=== PATIENT | male | born 1945 | race Caucasian/White ===

== ENCOUNTER 2021-10-20 14:12 | Inpatient (IN) | payer MEDICARE, OTHER ==
[~2021-10-20] VITALS: Ht 193 cm; Wt 83.1 kg
[2021-10-20] MEDS ORDERED: TRAZ-120 PO ×2 (15:26)
[2021-10-20] MEDS ORDERED: MEMA10TA PO (15:26)
[2021-10-20] MEDS ORDERED: WARF6TAB47 PO (15:26)
[2021-10-20] MEDS ORDERED: CARB1DRO12 OP (15:26)
[2021-10-20] MEDS ORDERED: LOPE-101 PO (15:26)
[2021-10-20] MEDS ORDERED: ACET325T21 PO (15:26)
[2021-10-20] MEDS ORDERED: ASPI-889 PO (15:26)
[2021-10-20] MEDS ORDERED: SERT50TA PO (15:26)
[2021-10-20] MEDS ORDERED: ACET500T68 PO (15:26)
[2021-10-20] MEDS ORDERED: TRAM50TA PO (15:26)
[2021-10-20] MEDS ORDERED: MAG355OR12 PO (15:26)
[2021-10-20] MEDS ORDERED: GABA-586 PO (15:26)
[2021-10-20] MEDS ORDERED: DONE10TA61 PO (15:26)
[2021-10-20] MEDS ORDERED: MAGN400O7 PO (15:26)
[2021-10-20] MEDS ORDERED: CALC500T31 PO (15:26)
[2021-10-20] MEDS ORDERED: MULT-245 PO (15:26)
[2021-10-20 16:22] VITALS: BP 122/67
[2021-10-20] MEDS ORDERED: METHYL SALICYLATE/MENTHOL TOPICAL OINTMENT 57GM TUBE. TP PRN (16:30)
[2021-10-20] MEDS ORDERED: MAG HYDROX/AL HYDROX/SIMETH 30 ML ORAL.SUSP PO PRN ×2 (16:30→17:15)
[2021-10-20] MEDS ORDERED: LOPERAMIDE 2 MG CAPSULE PO PRN (17:15)
[2021-10-20] MEDS ORDERED: ACETAMINOPHEN 325 MG TABLET PO PRN (17:15)
[2021-10-20] MEDS ORDERED: CALCIUM CARBONATE 500 MG TAB.CHEW PO PRN (17:30)
[2021-10-20] MEDS ORDERED: POLYVINYL ALCOHOL 1.4% OPHTH SOLUTION 15ML BOTTLE. OU PRN (17:30)
--- NOTE | 2021-10-20 18:12 | NUR ---
Admission Note with Justification for Admission to [facility] Patient admitted to [facility] for protective oversight for emergency stabilization of acute psychiatric crisis. Pt admitted from: [place] Mode of arrival: POV Accompanied By: Family Precipitating behaviors that initiated intake and admission: Aggressive, combative, anxiety, tearful, pacing/wandering, weightless Description of failure of out patient attempts at stabilization in previous setting list behavior and medication trials: Behaviors and assessment findings upon admission: Plan: Admit for protective oversight for adjustment and stabilization of medications, behaviors and mood. Intense treatment regimen including groups, medication adjustments, therapy, consistent regimen for ADL's, self care, and sleep hygiene. Daily monitoring by Inpatient staff, Psychiatry, and Medical Physician. Pleasantly confused, wandering in and out of all rooms, oriented to name only, unable to voice , doesnt respond on topic to questions, checks all door handles to closed doors. Word salad at times, paces, very busy.
[2021-10-20] MEDS ORDERED: LIDOCAINE (700MG/PATCH) PATCH. TD SCH (19:00)
[2021-10-20] MEDS ORDERED: ANTI-COAG MONITOR BY PHARMACY. MC PRN (19:15)
[2021-10-20] MEDS: GABAPENTIN 300 MG CAPSULE. PO SCH (20:09)
[2021-10-20] MEDS: traZODone 50 MG TABLET. PO SCH (20:10)
[2021-10-20] MEDS: traMADol 50 MG TABLET PO SCH (20:10)
[2021-10-20] MEDS: SERTRALINE 50 MG TABLET. PO SCH (20:10)
[2021-10-20] MEDS: ACETAMINOPHEN 500 MG TABLET PO SCH (20:10)
[2021-10-20] MEDS: MEMANTINE 10 MG TABLET. PO SCH (20:10)
[2021-10-20] MEDS: PATCH REMOVAL. MC SCH (20:11)
[2021-10-20 20:18] LABS: BASO % 0 % (0-3); EOS # 0.1 x10^3/uL (0.0-0.7); EOS % 3 % (0-3); HEMATOCRIT 33.2 % (39.0-53.0); LYMPH % 23 % (24-48); MEAN CORPUSCULAR HEMOGLOBIN 31 pg (25-35); MEAN CORPUSCULAR HGB CONC 33 g/dL (31-37); MEAN CORPUSCULAR VOLUME 93 fL (79-100); MONO # 0.5 x10^3/uL (0.0-1.1); MONO % 11 % (0-9); NEUT # 2.9 x10^3uL (1.8-7.7); NEUT % 63 % (31-73); PLATELET COUNT 192 x10^3/uL (140-400); RED BLOOD COUNT 3.55 x10^6/uL (4.30-5.70); RED CELL DISTRIBUTION WIDTH 15.3 % (11.5-14.5); WHITE BLOOD COUNT 4.5 x10^3/uL (4.0-11.0)
[2021-10-20 20:26] LABS: ALBUMIN 2.9 g/dL (3.4-5.0); ALBUMIN/GLOBULIN RATIO 0.9 (1.0-1.7); CALCIUM 8.2 mg/dL (8.5-10.1); CREATININE 1.2 mg/dL (0.7-1.3); GFR 58.7; MAGNESIUM 2.2 mg/dL (1.8-2.4); POTASSIUM 3.7 mmol/L (3.5-5.1); TOTAL BILIRUBIN 0.3 mg/dL (0.2-1.0); TOTAL PROTEIN 6.1 g/dL (6.4-8.2)
[2021-10-20] MEDS ORDERED: DONEPEZIL HCL 10 MG TABLET PO SCH (21:00)
[2021-10-20] MEDS ORDERED: WARFARIN 3 MG TABLET. PO ONE (21:30)
--- NOTE | 2021-10-20 21:30 | NUR ---
Pharmacy Warfarin Dosing Note S:Pharmacy consulted to assist with anticoagulation therapy started with target INR: 2 -3 O:FELICITAGINNYCHRISTELLE LARSON is a 75 year old M with Atrial Fibrillation LABS: Last INR: 1.7 Last HGB: 11.0 Last HCT: 33.2 Last PLT: 192 Last dose of 6 mg given on 10/19/21 at Previous Regimen: 6MG DAILY A:INR Below desired Range. Target Range for this patient is: 2 -3 P: Warfarin dose: 6 mg Now Bridge Therapy: None Next INR due 10/21/21 Pharmacy anticoagulation service will continue to follow. ROLY WOODS, 10/20/21 [id number]
--- NOTE | 2021-10-20 21:35 | PDOC ---
Exam Note: Shayne Note: Please also refer to the separate dictated note~for this date of service dictated separately.~Patient seen individually. Discussed the patient with Nursing staff reviewed the chart.~Reviewed interim history and current functioning. Reviewed vital signs,~Labs/ Radiology~and current medications noted below. Continue current treatment with the changes noted in the dictated addendum note Assessment: Vital Signs/I&O: Vital Signs Date Time Temp Pulse Resp B/P (MAP) Pulse Ox O2 Delivery O2 Flow Rate FiO2 10/20/21 20:10 97 10/20/21 16:22 97.8 75 19 122/67 (85) Labs: Laboratory Tests Test 10/20/21 19:50 White Blood Count 4.5 x10^3/uL (4.0-11.0) Red Blood Count 3.55 x10^6/uL (4.30-5.70) L Hemoglobin 11.0 g/dL (13.0-17.5) L Hematocrit 33.2 % (39.0-53.0) L Mean Corpuscular Volume 93 fL (79-100) Mean Corpuscular Hemoglobin 31 pg (25-35) Mean Corpuscular Hemoglobin Concent 33 g/dL (31-37) Red Cell Distribution Width 15.3 % (11.5-14.5) H Platelet Count 192 x10^3/uL (140-400) Neutrophils (%) (Auto) 63 % (31-73) Lymphocytes (%) (Auto) 23 % (24-48) L Monocytes (%) (Auto) 11 % (0-9) H Eosinophils (%) (Auto) 3 % (0-3) Basophils (%) (Auto) 0 % (0-3) Neutrophils # (Auto) 2.9 x10^3uL (1.8-7.7) Lymphocytes # (Auto) 1.0 x10^3/uL (1.0-4.8) Monocytes # (Auto) 0.5 x10^3/uL (0.0-1.1) Eosinophils # (Auto) 0.1 x10^3/uL (0.0-0.7) Basophils # (Auto) 0.0 x10^3/uL (0.0-0.2) Prothrombin Time 17.1 SEC (9.4-11.4) H Prothrombin Time INR 1.7 (0.9-1.1) H D-Dimer (Nata) 0.86 mg/L (0.00-0.50) H Sodium Level 141 mmol/L (136-145) Potassium Level 3.7 mmol/L (3.5-5.1) Chloride Level 107 mmol/L (98-107) Carbon Dioxide Level 27 mmol/L (21-32) Anion Gap 7 (6-14) Blood Urea Nitrogen 15 mg/dL (8-26) Creatinine 1.2 mg/dL (0.7-1.3) Estimated GFR (Cockcroft-Gault) 58.7 BUN/Creatinine Ratio 13 (6-20) Glucose Level 97 mg/dL (70-99) Calcium Level 8.2 mg/dL (8.5-10.1) L Magnesium Level 2.2 mg/dL (1.8-2.4) Total Bilirubin 0.3 mg/dL (0.2-1.0) Aspartate Amino Transferase (AST) 18 U/L (15-37) Alanine Aminotransferase (ALT) 23 U/L (16-63) Alkaline Phosphatase 82 U/L (46-116) Total Protein 6.1 g/dL (6.4-8.2) L Albumin 2.9 g/dL (3.4-5.0) L Albumin/Globulin Ratio 0.9 (1.0-1.7) L Current Medications: Meds: Current Medications Medications (Trade) Dose Ordered Sig/Corky Route PRN Reason Start Time Stop Time Status Last Admin Dose Admin Acetaminophen (Tylenol) 500 mg Q8HRS PO 10/20/21 22:00 10/20/21 20:10 Donepezil HCl (Aricept) 10 mg QHS PO 10/20/21 21:00 10/20/21 20:10 Gabapentin (Neurontin) 300 mg TID PO 10/20/21 21:00 10/20/21 20:09 Memantine (Namenda) 10 mg BID PO 10/20/21 21:00 10/20/21 20:10 Sertraline HCl (Zoloft) 50 mg QHS PO 10/20/21 21:00 10/20/21 20:10 Tramadol HCl (Ultram) 50 mg TID PO 10/20/21 21:00 10/20/21 20:10 Trazodone HCl (Desyrel) 25 mg BID PO 10/20/21 21:00 10/20/21 20:10 Miscellaneous (Lidoderm Patch Removal) 1 ea QHS 10/20/21 21:00 10/20/21 20:11 Warfarin Sodium (Coumadin Per Pharmacy) 1 each PRN DAILY PRN MC SEE COMMENTS 10/20/21 19:30 10/20/21 21:29 I have reviewed the current psychotropics carefully including drug interactions. Risk benefit ratio favors no change other than as noted in my dictated progress note. CHADWICK ARAGON MD Oct 20, 2021 21:35
--- NOTE | 2021-10-21 04:03 | NUR ---
Nursing Note Pt in bed confused, alert to self only. Med compliant and cooperative with assessment. Doesn't know his own name at this point. No behaviors.
[2021-10-21] MEDS: ACETAMINOPHEN 500 MG TABLET PO SCH ×3 (05:33→19:41)
[2021-10-21 06:17] VITALS: BP 102/65
[2021-10-21] MEDS: traMADol 50 MG TABLET PO SCH ×3 (07:46→19:42)
[2021-10-21] MEDS: traZODone 50 MG TABLET. PO SCH ×2 (07:46→19:41)
[2021-10-21] MEDS: GABAPENTIN 300 MG CAPSULE. PO SCH ×3 (07:46→19:41)
[2021-10-21] MEDS: MEMANTINE 10 MG TABLET. PO SCH (07:46)
[2021-10-21] MEDS: MULTIVITAMIN with MINERAL TABLET. PO SCH (07:46)
[2021-10-21] MEDS: ASPIRIN CHEWABLE 81 MG TABLET. PO SCH (07:46)
[2021-10-21] MEDS ORDERED: ASPIRIN ENTERIC COATED 81 MG TABLET.DR. PO SCH (09:00)
[2021-10-21] MEDS ORDERED: WARFARIN SODIUM 6 MG PO SCH (13:00)
--- NOTE | 2021-10-21 13:04 | NUR ---
ASSUMED CARE OF PT AT 0700. PT IS WANDERING IN HALLWAY AT TIME OF SHIFT CHANGE. DURING ASSESSMENT PT IS DISORGANIZED AND UNABLE TO ANSWER ORIENTATION QUESTIONS. PT IS COMPLIANT WITH MEDICATIONS CRUSHED IN CHOCOLATE PUDDING. PT IS STABLE AND WANDERING IN [address] WAY AT THIS TIME. WILL CONTINUE TO MONITOR.
--- NOTE | 2021-10-21 14:10 | NUR ---
NOREEN attempted to contact pt son, Darien, and ended up leaving a message asking for him to contact NOREEN when possible. NOREEN will try back at a later time in order to complete PSA.
[2021-10-21 15:43] LABS: CHOLESTEROL/HDL RATIO 5.2
[2021-10-21 15:44] LABS: THYROID STIM HORMONE (TSH) 3.198 uIU/mL (0.358-3.740)
[2021-10-21] MEDS: traZODone 50 MG TABLET. PO PRN (15:50)
[2021-10-21] MEDS ORDERED: WARFARIN 3 MG TABLET. PO ONE (16:00)
[2021-10-21] MEDS: DIVALPROEX 125 MG CAP.SPRINK PO SCH (17:00)
--- NOTE | 2021-10-21 17:24 | EKG ---
[address] [address] Test Date: 2021-10-21 Test Time: 16:51:08 Pat Name: CHRISTELLE ALDRICH Department: Room: [address] [place] [address] Gender: M Commissioning Editor: : 1945 Requested By: CHADWICK ARAGON Order Number: [id number] Reading MD: Yash Vincent Measurements Intervals [place] Rate: P: SD: QRS: QRSD: T: QT: QTc: Interpretive Statements SINUS RHYTHM NON-SPECIFIC ST/T ABNORMALITIES Electronically Signed On 10-21-2021 19:49:19 MOBILE SECURITY ARCHITECT by Yash Vincent
--- NOTE | 2021-10-21 17:43 | HP ---
DATE OF SERVICE: 10/21/2021 ADMIT DATE: 10/20/2021 PSYCHIATRIC ADMISSION HISTORY AND EVALUATION This late entry, date of service 10/20/2021, covers the elements not covered in my initial note of 10/20/2021. I met with the patient on the evening of 10/20/2021 for this evaluation. Previously discussed with nursing staff and prior to that with Kellie Méndez, mds coordinator. IDENTIFYING DATA: The patient is a 75-year-old male referred to us from [facility] with a diagnosis of dementia with behavioral disturbance. The patient has been increasingly confused, angry, aggressive, oriented just to himself, paranoid, disruptive at the nursing facility. Behaviors have been unmanageable, had failed outpatient psychiatric interventions resulting in this referral. CHIEF COMPLAINT: "No." I followed the patient around, but he is oblivious of his surroundings. HISTORY OF PRESENT ILLNESS: The patient has a history of dementia, Alzheimer's, vascular type. He has been residing at the above [facility] for some time, but recently getting more agitated, paranoid, psychotic, aggressive, disruptive. He has had sleep and appetite changes. No active suicidal or homicidal ideation. No clear history of bipolar disorder. PAST PSYCHIATRIC HISTORY: As above. MEDICAL HISTORY: Positive for status post a graft of the aorta, low back pain, chronic gout, hyperlipidemia, paroxysmal atrial fibrillation, aneurysm of ascending aorta, lumbosacral spondylosis, status post hernia repair, status post vasectomy and ankle surgery. CODE STATUS: DNR. ALLERGIES: STATINS. DIET: Regular finger foods. MEDICATIONS: He takes crushed in chocolate pudding. Ambulates independently. FAMILY HISTORY: Noncontributory. CURRENT PSYCHOTROPICS: Trazodone 25 mg b.i.d. and 25 mg q. 8 hours p.r.n. agitation, Namenda 10 mg b.i.d., Zoloft 50 mg a day, gabapentin 300 mg t.i.d., Aricept 10 mg a day. SOCIAL HISTORY: No history of alcohol, drug abuse, physical, sexual or elder abuse. He is not known to be a perpetrator. REACTION TO HOSPITALIZATION: The patient oblivious of it. REVIEW OF SYSTEMS: No CV, , pulmonary, eye, ENT system symptoms on review. Reliability poor. MENTAL STATUS EXAM: The patient is oriented to himself. Insight, judgment, recent and remote memory, attention, concentration, fund of knowledge poor consistent with his diagnosis. IMPRESSION: Major neurocognitive disorder; Alzheimer, vascular with delusion, depression, behavioral disturbance; anxiety disorder, unspecified; impulse control disorder, unspecified. Rest as above. PLAN: Admit to Geropsychiatry Unit at [facility]. I will see the patient daily individually from a psychiatric standpoint. Medical followup, Dr. Tinajero/Dr. Beltran. Continue the patient on his current psychotropics, observe baseline, then adjust psychotropics as clinically indicated. May consider stopping Namenda and Aricept given the extent of his dementia with little possible benefit at this stage would either of these 2 medications. May consider Depakote as a mood stabilizer and consider adjusting the Zoloft, and also consider BuSpar for his anxiety, agitation. At the time of this dictation, I was called around 3:00 a.m. on 10/21/2021 by nursing staff as an emergency middle of the night, the patient was agitated, aggressive, disruptive. We did start Zyprexa 2.5 mg q. 2 hours p.r.n., psychosis and agitation, max 10 mg in 24 hours and this seemed to be helpful. ESTIMATED LENGTH OF STAY: 10-12 days. DISPOSITION PLANS: Back to mcc when stable. DIOMEDES PATTEN: Yoon TID: [id number]
[2021-10-21 18:07] LABS: THYROXINE 6.2 ug/dL (4.5-12.0)
--- NOTE | 2021-10-21 18:15 | NUR ---
Patient has been calm, cooperative, and mildly confused throughout this shift. He has mild confusion to place and day/date. Patient is impulsive and gets up on his own without assistance after being instructed to request assistance when ambulating. He has been in bed most of the shift, easily aroused for meals. Will continue to monitor and report to oncoming shift.
[2021-10-21] MEDS: SERTRALINE 50 MG TABLET. PO SCH (19:41)
[2021-10-21] MEDS: PATCH REMOVAL. MC SCH (19:42)
--- NOTE | 2021-10-21 20:09 | CONS ---
DATE OF CONSULTATION: 10/21/2021 ATTENDING PHYSICIAN: Dr. Aragon and Dr. Beltran. SUBJECTIVE: We are asked to see the patient for medical consultation. HISTORY OF PRESENT ILLNESS: The patient is a 75-year-old gentleman from [facility] in [place]. He is profoundly demented. He has shake. He is wandering, he is constantly talking gibberish. He will not listen and follow commands. He was admitted for aggressive behavior along with some paranoia. He has been pacing aggressive, combative with caretakers. PAST MEDICAL HISTORY: Significant for profound dementia, Alzheimer disease. He also has a mechanical aortic valve. I do not have further details. I tried to listen for the mechanical aortic valve closure, but because of his talking, I cannot hear that despite his noise. He has had chronic degenerative arthritis, gout, hyperlipidemia. He had COVID-19 in September of this year. MEDICATIONS: His current medicines reviewed. He was on Coumadin 6 mg daily, on trazodone, tramadol, Zoloft, multivitamin, Namenda, magnesium, loperamide, Neurontin, Aricept, cellulose eye drops, aspirin and Tylenol p.r.n. 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 SOCIAL HISTORY: He is a nonsmoker, nondrinker. FAMILY HISTORY: Unobtainable. REVIEW OF SYSTEMS: Unobtainable due to the patient's confusion. PHYSICAL EXAMINATION: GENERAL: When I saw him, this is an agitated, confused elderly gentleman who had to be laid around. He has no insight as to person, place and time. VITAL SIGNS: Initial vital signs showed a blood pressure 102/65, pulse is 80 and regular. He was afebrile, oxygen saturation 98% on room air. HEENT: Head is without trauma. Pupils are reactive. Sclerae nonicteric. Oropharynx appears clear. NECK: Supple, no bruits. LUNGS: Good breath sounds. CARDIOVASCULAR: Regular heart tones. I tried to listen for the closure of the mechanical valve. I cannot appreciate it due to his constant talking. There is no failure. ABDOMEN: Soft. No guarding. EXTREMITIES: Without edema. NEUROLOGIC FINDINGS: Profoundly demented with agitation. PERTINENT LABORATORY STUDIES: Hemoglobin is 11.0 g/dL with a white count of 4500. Electrolytes within normal range. INR was 1.9, today slightly subtherapeutic. ASSESSMENT: 1. This 75-year-old gentleman has profound dementia with agitation. 2. History of mechanical aortic valve, on chronic anticoagulation. 3. Chronic degenerative arthritis and low back pain. 4. Hyperlipidemia. 5. History of gout. RECOMMENDATIONS: 1. I have seen the patient, he is stable from a medical standpoint. 2. His INR is slightly subtherapeutic. I do not recommend increasing the dose of the Coumadin. We will check another INR next week. 3. Other home meds reviewed and should be continued. 4. He is stable from a medical standpoint. Thank you again for asking me to see the patient for medical consultation. We should gladly follow along during his inpatient stay. KATHERIN DR: Demetria TID: [id number] CC: CHADWICK ARAGON MD
--- NOTE | 2021-10-21 21:42 | PDOC ---
Exam Note: Shayne Note: Please also refer to the separate dictated note~for this date of service dictated separately.~Patient seen individually. Discussed the patient with Nursing staff reviewed the chart.~Reviewed interim history and current functioning. Reviewed vital signs,~Labs/ Radiology~and current medications noted below. Continue current treatment with the changes noted in the dictated addendum note Assessment: Vital Signs/I&O: Vital Signs Date Time Temp Pulse Resp B/P (MAP) Pulse Ox O2 Delivery O2 Flow Rate FiO2 10/21/21 19:42 98 10/21/21 14:02 20 10/21/21 13:32 Room Air 10/21/21 06:17 97.8 80 102/65 (77) I & O 10/20/21 10/20/21 10/21/21 15:00 23:00 07:00 Intake Total 660 ml Balance 660 ml Labs: Laboratory Tests Test 10/21/21 06:09 Prothrombin Time 19.8 SEC (9.4-11.4) H Prothrombin Time INR 1.9 (0.9-1.1) H Current Medications: Meds: Laboratory Tests Test 10/21/21 06:09 Prothrombin Time 19.8 SEC Prothromb Time International Ratio 1.9 Current Medications Medications (Trade) Dose Ordered Sig/Corky Route PRN Reason Start Time Stop Time Status Last Admin Dose Admin Multi-Ingredient Ointment (Analgesic Ney) 1 sam PRN QID PRN TP MUSCLE PAIN 10/20/21 16:30 Al Hydroxide/Mg Hydroxide (Mylanta Plus Xs) 15 ml PRN AFTMEALHC PRN PO DYSPEPSIA 10/20/21 16:30 Cancel Acetaminophen (Tylenol) 650 mg PRN Q4HRS PRN PO MILD PAIN / TEMP > 100.3'F 10/20/21 17:15 Acetaminophen (Tylenol) 500 mg Q8HRS PO 10/20/21 22:00 10/21/21 19:41 Aspirin (Aspirin Enteric Coated) 81 mg DAILY PO 10/21/21 09:00 10/20/21 18:50 DC Calcium Carbonate/ Glycine (Tums) 500 mg PRN Q4HRS PRN PO HEARTBURN / GAS 10/20/21 17:30 Donepezil HCl (Aricept) 10 mg QHS PO 10/20/21 21:00 10/21/21 16:23 DC 10/20/21 20:10 Gabapentin (Neurontin) 300 mg TID PO 10/20/21 21:00 10/21/21 19:41 Loperamide HCl (Imodium) 4 mg PRN Q4HRS PRN PO DIARRHEA 10/20/21 17:15 Al Hydroxide/Mg Hydroxide (Mylanta Plus Xs) 30 ml PRN Q4HRS PRN PO indigestion & diarrhea 10/20/21 17:15 Magnesium Hydroxide (Milk Of Magnesia) 2,400 mg PRN Q24HRS PRN PO CONSTIPATION 10/20/21 17:15 Memantine (Namenda) 10 mg BID PO 10/20/21 21:00 10/21/21 16:23 DC 10/21/21 07:46 Sertraline HCl (Zoloft) 50 mg QHS PO 10/20/21 21:00 10/21/21 19:41 Tramadol HCl (Ultram) 50 mg TID PO 10/20/21 21:00 10/21/21 19:42 Trazodone HCl (Desyrel) 25 mg BID PO 10/20/21 21:00 10/21/21 19:41 Trazodone HCl (Desyrel) 25 mg PRN Q8HRS PRN PO anxiety 10/20/21 17:15 10/21/21 15:50 Artificial Tears (Artificial Tears) 2 drop PRN Q4HRS PRN OU DRY EYE 10/20/21 17:30 Multivitamins/ Calcium (Thera-M Plus) 1 tab DAILY PO 10/21/21 09:00 10/21/21 07:46 Non-Formulary Medication (Warfarin Sodium ) 6 mg AFTRNOON PO 10/21/21 13:00 UNV Aspirin (Aspirin Chewable) 81 mg DAILYWBKFT PO 10/21/21 08:00 10/21/21 07:46 Lidocaine (Lidoderm) 1 patch PRN DAILY TD 10/20/21 19:00 Miscellaneous (Lidoderm Patch Removal) 1 ea QHS MC 10/20/21 21:00 10/21/21 19:42 Info (Anti-Coagulation Monitoring By Pharmacy) 1 each PRN DAILY PRN MC SEE COMMENTS 10/20/21 19:15 Warfarin Sodium (Coumadin Per Pharmacy) 1 each PRN DAILY PRN MC SEE COMMENTS 10/20/21 19:30 10/20/21 21:29 Warfarin Sodium (Coumadin) 6 mg 1X WARF ONCE PO 10/20/21 21:30 10/20/21 21:31 DC 10/20/21 21:30 Warfarin Sodium (Coumadin) 6 mg 1X WARF ONCE PO 10/21/21 16:00 10/21/21 16:01 DC 10/21/21 15:49 Divalproex Sodium (Depakote Sprinkles) 125 mg 0900,1700 PO 10/21/21 17:00 Current Medications Medications (Trade) Dose Ordered Sig/Corky Route PRN Reason Start Time Stop Time Status Last Admin Dose Admin Acetaminophen (Tylenol) 500 mg Q8HRS PO 10/20/21 22:00 10/21/21 19:41 Multivitamins/ Calcium (Thera-M Plus) 1 tab DAILY PO 10/21/21 09:00 10/21/21 07:46 Aspirin (Aspirin Chewable) 81 mg DAILYWBKFT PO 10/21/21 08:00 10/21/21 07:46 Warfarin Sodium (Coumadin) 6 mg 1X WARF ONCE PO 10/21/21 16:00 10/21/21 16:01 DC 10/21/21 15:49 I have reviewed the current psychotropics carefully including drug interactions. Risk benefit ratio favors no change other than as noted in my dictated progress note. Diagnosis: Problems: (1) Major neurocognitive disorder (2) Dementia in Alzheimer's disease with delusions (3) Dementia in Alzheimer's disease with early onset with behavioral disturbance (4) Dementia, vascular, with delusions (5) Dementia, vascular, with depression (6) Anxiety disorder, unspecified (7) Impulse control disorder, unspecified CHADWICK ARAGON MD Oct 21, 2021 21:42
--- NOTE | 2021-10-21 22:14 | NUR ---
Nursing Note Pt confused, yelling for mommy, rambling speech pattern in a word salad. Difficult to redirect doesn't follow commands. Gets very agitated with redirection.
[2021-10-22 01:07] LABS: HEMOGLOBIN A1C 5.4 % (4.8-5.6)
[2021-10-22 04:31] LABS: BACTERIA,URINE FEW /HPF (0-FEW); CLARITY,URINE HAZY; COLOR,URINE AMBER; GLUCOSE,URINE NEG (NEG); NITRITE,URINE NEG (NEG); UROBILINOGEN,URINE 0.2 mg/dL (0.2 mg/dL)
[2021-10-22 04:32] LABS: SQUAMOUS EPITHELIAL CELL,UR FEW /LPF
[2021-10-22] MEDS: ACETAMINOPHEN 500 MG TABLET PO SCH ×3 (05:36→20:13)
[2021-10-22 06:19] VITALS: BP 125/73
[2021-10-22] MEDS: traZODone 50 MG TABLET. PO PRN (06:36)
--- NOTE | 2021-10-22 07:25 | NUR ---
Pharmacy Warfarin Dosing Note S:Pharmacy consulted to assist with anticoagulation therapy started with target INR: 2 -3 O:CHRISTELLE ALDRICH is a 75 year old M with Atrial Fibrillation LABS: Last INR: 2.6 Last HGB: 11 Last HCT: 33 Last PLT: 192 Last dose of 6 mg given on 10/21/21 at 1600 Previous Regimen: 6MG DAILY Vitamin K given: N Drug Interaction Changes: Same Interacting Drug Ongoing Drug Interactions: SERTRALINE A:INR Within desired Range. Target Range for this patient is: 2 -3, INR has risen more than 0.5 points, will adjust dose down for now. P: Warfarin dose: 4 mg Today at 1600 Bridge Therapy: None Next INR due Pharmacy anticoagulation service will continue to follow. MARIBELL MANCILLA RPH, 10/22/21 0725 Addendum: 10/22/21 at 0727 by MARIBELL MANCILLA RPH PHA INR rise more than 0.5 points in 24hrs.
[2021-10-22] MEDS: GABAPENTIN 300 MG CAPSULE. PO SCH ×3 (08:42→20:13)
[2021-10-22] MEDS: DIVALPROEX 125 MG CAP.SPRINK PO SCH ×2 (08:42→17:00)
[2021-10-22] MEDS: ASPIRIN CHEWABLE 81 MG TABLET. PO SCH (08:42)
[2021-10-22] MEDS: traZODone 50 MG TABLET. PO SCH ×2 (08:42→20:12)
[2021-10-22] MEDS: MULTIVITAMIN with MINERAL TABLET. PO SCH (08:42)
[2021-10-22] MEDS: traMADol 50 MG TABLET PO SCH ×3 (08:43→20:14)
--- NOTE | 2021-10-22 11:32 | NUR ---
Nsg Note; wandering in cruz indep with no issues. disorganized and talking about his mom and mommy. word salad. med compliant.
[2021-10-22] MEDS ORDERED: WARFARIN 4 MG TABLET. PO ONE (16:00)
[2021-10-22] MEDS: PATCH REMOVAL. MC SCH (19:26)
--- NOTE | 2021-10-22 21:40 | PDOC ---
Exam Note: Shayne Note: Please also refer to the separate dictated note~for this date of service dictated separately.~Patient seen individually. Discussed the patient with Nursing staff reviewed the chart.~Reviewed interim history and current functioning. Reviewed vital signs,~Labs/ Radiology~and current medications noted below. Continue current treatment with the changes noted in the dictated addendum note Assessment: Vital Signs/I&O: Vital Signs Date Time Temp Pulse Resp B/P (MAP) Pulse Ox O2 Delivery O2 Flow Rate FiO2 10/22/21 20:14 91 10/22/21 06:19 97.2 60 18 125/73 (90) 10/21/21 13:32 Room Air I & O 10/21/21 10/21/21 10/22/21 15:00 23:00 07:00 Intake Total 720 ml 0 ml Balance 720 ml 0 ml Labs: Laboratory Tests Test 10/22/21 03:25 10/22/21 06:00 Urine Collection Type Unknown Urine Color Sola Urine Clarity Hazy Urine pH 6.0 Urine Specific [place] >=1.030 Urine Protein Neg (NEG-TRACE) Urine Glucose (UA) Neg mg/dL (NEG) Urine Ketones (Stick) Neg mg/dL (NEG) Urine Blood Neg (NEG) Urine Nitrite Neg (NEG) Urine Bilirubin Neg (NEG) Urine Urobilinogen Dipstick 0.2 mg/dL (0.2 mg/dL) Urine Leukocyte Esterase Neg (NEG) Urine RBC 3-5 /HPF (0-2) Urine WBC 1-4 /HPF (0-4) Urine Squamous Epithelial Cells Few /LPF Urine Bacteria Few /HPF (0-FEW) Urine Mucus Mod /LPF Prothrombin Time 27.0 SEC (9.4-11.4) H Prothrombin Time INR 2.6 (0.9-1.1) H Current Medications: Meds: Laboratory Tests Test 10/22/21 03:25 10/22/21 06:00 Urine Collection Type Unknown Urine Color Sola Urine Clarity Hazy Urine pH 6.0 Urine Specific [place] >=1.030 Urine Protein Neg Urine Glucose (UA) Neg mg/dL Urine Ketones (Stick) Neg mg/dL Urine Blood Neg Urine Nitrite Neg Urine Bilirubin Neg Urine Urobilinogen Dipstick 0.2 mg/dL Urine Leukocyte Esterase Neg Urine RBC 3-5 /HPF Urine WBC 1-4 /HPF Urine Squamous Epithelial Cells Few /LPF Urine Bacteria Few /HPF Urine Mucus Mod /LPF Prothrombin Time 27.0 SEC Prothromb Time International Ratio 2.6 Current Medications Medications (Trade) Dose Ordered Sig/Corky Route PRN Reason Start Time Stop Time Status Last Admin Dose Admin Multi-Ingredient Ointment (Analgesic [place]) 1 sam PRN QID PRN TP MUSCLE PAIN 10/20/21 16:30 Al Hydroxide/Mg Hydroxide (Mylanta Plus Xs) 15 ml PRN AFTMEALHC PRN PO DYSPEPSIA 10/20/21 16:30 Cancel Acetaminophen (Tylenol) 650 mg PRN Q4HRS PRN PO MILD PAIN / TEMP > 100.3'F 10/20/21 17:15 Acetaminophen (Tylenol) 500 mg Q8HRS PO 10/20/21 22:00 10/22/21 20:13 Aspirin (Aspirin Enteric Coated) 81 mg DAILY PO 10/21/21 09:00 10/20/21 18:50 DC Calcium Carbonate/ Glycine (Tums) 500 mg PRN Q4HRS PRN PO HEARTBURN / GAS 10/20/21 17:30 Donepezil HCl (Aricept) 10 mg QHS PO 10/20/21 21:00 10/21/21 16:23 DC 10/20/21 20:10 Gabapentin (Neurontin) 300 mg TID PO 10/20/21 21:00 10/22/21 20:13 Loperamide HCl (Imodium) 4 mg PRN Q4HRS PRN PO DIARRHEA 10/20/21 17:15 Al Hydroxide/Mg Hydroxide (Mylanta Plus Xs) 30 ml PRN Q4HRS PRN PO indigestion & diarrhea 10/20/21 17:15 Magnesium Hydroxide (Milk Of Magnesia) 2,400 mg PRN Q24HRS PRN PO CONSTIPATION 10/20/21 17:15 Memantine (Namenda) 10 mg BID PO 10/20/21 21:00 10/21/21 16:23 DC 10/21/21 07:46 Sertraline HCl (Zoloft) 50 mg QHS PO 10/20/21 21:00 10/22/21 10:23 DC 10/21/21 19:41 Tramadol HCl (Ultram) 50 mg TID PO 10/20/21 21:00 10/22/21 20:14 Trazodone HCl (Desyrel) 25 mg BID PO 10/20/21 21:00 10/22/21 20:12 Trazodone HCl (Desyrel) 25 mg PRN Q8HRS PRN PO anxiety 10/20/21 17:15 10/22/21 06:36 Artificial Tears (Artificial Tears) 2 drop PRN Q4HRS PRN OU DRY EYE 10/20/21 17:30 Multivitamins/ Calcium (Thera-M Plus) 1 tab DAILY PO 10/21/21 09:00 10/22/21 08:42 Non-Formulary Medication (Warfarin Sodium ) 6 mg AFTRNOON PO 10/21/21 13:00 UNV Aspirin (Aspirin Chewable) 81 mg DAILYWBKFT PO 10/21/21 08:00 10/22/21 08:42 Lidocaine (Lidoderm) 1 patch PRN DAILY TD 10/20/21 19:00 10/22/21 14:58 DC Miscellaneous ([facility] 10/[facility] 21:00 10/21/21 19:42 Info (Anti-Coagulation Monitoring By Pharmacy) 1 each PRN DAILY PRN MC SEE COMMENTS 10/20/21 19:15 Warfarin Sodium (Coumadin Per Pharmacy) 1 each PRN DAILY PRN MC SEE COMMENTS 10/20/21 19:30 10/22/21 07:21 Warfarin Sodium (Coumadin) 6 mg 1X WARF ONCE PO 10/20/21 21:30 10/20/21 21:31 DC 10/20/21 21:30 Warfarin Sodium (Coumadin) 6 mg 1X WARF ONCE PO 10/21/21 16:00 10/21/21 16:01 DC 10/21/21 15:49 Divalproex Sodium (Depakote Sprinkles) 125 mg 0900,1700 PO 10/21/21 17:00 10/22/21 17:00 Warfarin Sodium (Coumadin) 4 mg 1X WARF ONCE PO 10/22/21 16:00 10/22/21 16:01 DC 10/22/21 17:05 Duloxetine HCl (Cymbalta) 20 mg DAILY PO 10/23/21 09:00 10/25/21 10:00 Duloxetine HCl (Cymbalta) 40 mg DAILY PO 10/26/21 09:00 Lidocaine (Lidoderm) 1 patch DAILY TD 10/23/21 09:00 Current Medications Medications (Trade) Dose Ordered Sig/Corky Route PRN Reason Start Time Stop Time Status Last Admin Dose Admin Warfarin Sodium (Coumadin) 4 mg 1X WARF ONCE PO 10/22/21 16:00 10/22/21 16:01 DC 10/22/21 17:05 I have reviewed the current psychotropics carefully including drug interactions. Risk benefit ratio favors no change other than as noted in my dictated progress note. 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
--- NOTE | 2021-10-22 22:40 | NUR ---
Nursing Note Pt highly combative and confused, gets very angry with redirection. Swings at staff stating things in word salad that make no sense. Yells out constantly for his mommy. Meds in pudding is compliant. Zydis given with HS meds.
[2021-10-23] MEDS: ACETAMINOPHEN 500 MG TABLET PO SCH ×4 (06:00→22:00)
[2021-10-23 06:40] VITALS: BP 121/74
[2021-10-23] MEDS: traMADol 50 MG TABLET PO SCH ×4 (08:27→21:00)
[2021-10-23] MEDS: traZODone 50 MG TABLET. PO SCH ×3 (08:27→21:00)
[2021-10-23] MEDS: ASPIRIN CHEWABLE 81 MG TABLET. PO SCH (08:27)
[2021-10-23] MEDS: DIVALPROEX 125 MG CAP.SPRINK PO SCH ×2 (08:27→17:00)
[2021-10-23] MEDS: MULTIVITAMIN with MINERAL TABLET. PO SCH (08:27)
[2021-10-23] MEDS: LIDOCAINE (700MG/PATCH) PATCH. TD SCH (08:27)
[2021-10-23] MEDS: DULoxetine HCL 20 MG CAPSULE.DR PO SCH (08:27)
[2021-10-23] MEDS: GABAPENTIN 300 MG CAPSULE. PO SCH ×4 (08:28→21:00)
--- NOTE | 2021-10-23 09:49 | NUR ---
WEEKLY ACTIVITY THERAPY NOTE Date of Admission:10/20/21 Date of AT Assessment: TBD Precipitating behaviors that initiated intake and admission: Aggressive, combative, anxiety, tearful, pacing/wandering, weightless Goal aimed: TBD Initial Goal: TBD Weekly progress towards goal: NA Group participation level: NA Weekly highlights: arrived on [facility] Behaviors observed: Plan: meet/assess pt Beneficial adaptations: TBD
--- NOTE | 2021-10-23 10:42 | NUR ---
ACTIVITY THERAPY ASSESSMENT completed based on notes, observation, and interview. Pt was wandering in the hallway during assessment. Pt did not respond to his name and continued to walk when RELATIONSHIP BANKER spoke with him. RELATIONSHIP BANKER walked with pt for a few minutes but was unable to make sense of anything the pt was saying. Pt spoke in word salad and was unable to answer orientation questions. Per notes pt becomes agitated and resistive with redirection. Pt continues to wander and is unaware of his surroundings. Initial goal aimed to increase stress management and relaxation skills. Pt will participate in at least three Activity Therapy sessions before discharge.
--- NOTE | 2021-10-23 15:12 | NUR ---
Pharmacy Warfarin Dosing Note S:Pharmacy consulted to assist with anticoagulation therapy started 10/20/21 with target INR: 2 -3 O:FELICITAGINNYCHRISTELLE LARSON is a 75 year old M with Atrial Fibrillation LABS: Last INR: 3.1 Last HGB: 11 Last HCT: 33.2 Last PLT: 192 Last dose of 4 mg given on 10/22/21 at 1600 Previous Regimen: 6MG DAILY HOME DOSE Vitamin K given: N Drug Interaction Changes: Same Interacting Drug Ongoing Drug Interactions: SERTRALINE A:INR Above desired Range. Target Range for this patient is: 2 -3 P: Warfarin dose: Hold Today at 1600 Bridge Therapy: None Next INR due 10/24/21 @ 0600 Pharmacy anticoagulation service will continue to follow. MARIBELL MANCILLA [facility], 10/23/21 [id number]
[2021-10-23] MEDS: traZODone 50 MG TABLET. PO PRN (15:24)
[2021-10-23 15:38] VITALS: BP 103/66
[2021-10-23] MEDS: PATCH REMOVAL. MC SCH (20:13)
[2021-10-23] MEDS: MAGNESIUM HYDROXIDE 2,400 MG/30 ML ORAL.SUSP. PO PRN (20:16)
--- NOTE | 2021-10-23 21:33 | PDOC ---
Exam Note: Shayne Note: This note is a late entry for 10/21/2021 covers elements not covered in my initial note. Subjective: The patient was seen individually on 10/21/2021, discussed and reviewed the chart with Tamanna NEFF. He slept 7-3/4 hours previous night. The patient remains confused, oriented just to himself, constantly walking up and down the hallway, getting into other patients room, calling for his mother. I was called at 3 a.m., by nursing staff as the patient is quite agitated, psychotic, paranoid. We had added Zyprexa 2.5 mg q.2h. p.r.n. psychosis, agitation, max 10 mg in 24 hours. He seemed to respond to this. He has been wandering the hallway. Review of Systems: No CV, , pulmonary, eye, ENT system symptoms on review. Reliability poor. He is frequently calling for his mother. Mental Status Exam: The patient is oriented to himself. Insight and judgment, recent and remote memory, attention and concentration, fund of knowledge is poor consistent with his diagnosis. Laboratory Data: Reviewed. Impression: Major neurocognitive disorder, Alzheimer, vascular with delusion, depression behavioral disturbance. Anxiety disorder unspecified. Impulse control disorder unspecified. Plan: Increase Zoloft to 75 mg a day. Add Depakote Sprinkle 125 mg 9 a.m. and 5 p.m. Check CBC, CMP, valproic acid level in 3 days. Continue rest psychotropics unchanged from initial note. Assessment: Vital Signs/I&O: Vital Signs Date Time Temp Pulse Resp B/P (MAP) Pulse Ox O2 Delivery O2 Flow Rate FiO2 10/23/21 20:15 99 10/23/21 15:38 98.8 79 16 103/66 (78) 10/21/21 13:32 Room Air I & O 10/22/21 10/22/21 10/23/21 15:00 23:00 07:00 Intake Total 480 ml 120 ml Balance 480 ml 120 ml Labs: Laboratory Tests Test 10/23/21 05:53 Prothrombin Time 31.4 SEC (9.4-11.4) H Prothrombin Time INR 3.1 (0.9-1.1) H Current Medications: Meds: Current Medications Medications (Trade) Dose Ordered Sig/Corky Route PRN Reason Start Time Stop Time Status Last Admin Dose Admin Duloxetine HCl (Cymbalta) 20 mg DAILY PO 10/23/21 09:00 10/25/21 10:00 10/23/21 08:27 Lidocaine (Lidoderm) 1 patch DAILY TD 10/23/21 09:00 10/23/21 08:27 Warfarin Sodium (Coumadin - No Dose Today) 1 each 1X WARF ONCE MC 10/23/21 16:00 10/23/21 16:01 DC 10/23/21 16:00 I have reviewed the current psychotropics carefully including drug interactions. Risk benefit ratio favors no change other than as noted in my dictated progress note. 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
--- NOTE | 2021-10-23 21:41 | PDOC ---
Exam Note: Shayne Note: This note is a late entry for 10/22/2021 covers elements not covered in my initial note. Subjective: The patient was reviewed on telehealth rounds at treatment team meeting in the morning on 10/22/2021 with Dyana Cruz (social research assistant) and Lynn NEFF, discussed and reviewed the chart. Discussed and reviewed his diagnoses, progress, drug interactions and risk-benefit ratio at length. Sleeping average 7 hours. Appetite 50%. The patient remains confused, talking to himself but no clear hallucinations. He is restless, anxious, constantly moving up and down the hallway, did not know how to eat his food, fixated on calling for his mother. Received Zyprexa p.r.n. 3 a.m. Review of Systems: He has low back pain. No CV, , pulmonary, eye, ENT system symptoms on review. Reliability poor. He was somewhat sedated in the evening when I met with him. Mental Status Exam: The patient is oriented to himself. Insight and judgment, recent and remote memory, attention and concentration, fund of knowledge is poor consistent with his diagnosis. Laboratory Data: Reviewed. Impression: Major neurocognitive disorder, Alzheimer, vascular with delusion, depression behavioral disturbance. Anxiety disorder unspecified. Impulse control disorder unspecified. Plan: Given the patients chronic pain and need for anti-depressants, we will change the Zoloft to Cymbalta 20 mg a day for 3 days, then 40 mg a day. Maintain rest of the psychotropics unchanged. Assessment: Vital Signs/I&O: Vital Signs Date Time Temp Pulse Resp B/P (MAP) Pulse Ox O2 Delivery O2 Flow Rate FiO2 10/23/21 20:15 99 10/23/21 15:38 98.8 79 16 103/66 (78) 10/21/21 13:32 Room Air I & O 10/22/21 10/22/21 10/23/21 15:00 23:00 07:00 Intake Total 480 ml 120 ml Balance 480 ml 120 ml Labs: Laboratory Tests Test 10/23/21 05:53 Prothrombin Time 31.4 SEC (9.4-11.4) H Prothrombin Time INR 3.1 (0.9-1.1) H Current Medications: Meds: Current Medications Medications (Trade) Dose Ordered Sig/Corky Route PRN Reason Start Time Stop Time Status Last Admin Dose Admin Duloxetine HCl (Cymbalta) 20 mg DAILY PO 10/23/21 09:00 10/25/21 10:00 10/23/21 08:27 Lidocaine (Lidoderm) 1 patch DAILY TD 10/23/21 09:00 10/23/21 08:27 Warfarin Sodium (Coumadin - No Dose Today) 1 each 1X WARF ONCE MC 10/23/21 16:00 10/23/21 16:01 DC 10/23/21 16:00 I have reviewed the current psychotropics carefully including drug interactions. Risk benefit ratio favors no change other than as noted in my dictated progress note. 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
--- NOTE | 2021-10-23 21:51 | PDOC ---
Exam Note: Shayne Note: Please also refer to the separate dictated note~for this date of service dictated separately.~Patient seen individually. Discussed the patient with Nursing staff reviewed the chart.~Reviewed interim history and current functioning. Reviewed vital signs,~Labs/ Radiology~and current medications noted below. Continue current treatment with the changes noted in the dictated addendum note Assessment: Vital Signs/I&O: Vital Signs Date Time Temp Pulse Resp B/P (MAP) Pulse Ox O2 Delivery O2 Flow Rate FiO2 10/23/21 20:15 99 10/23/21 15:38 98.8 79 16 103/66 (78) 10/21/21 13:32 Room Air I & O 10/22/21 10/22/21 10/23/21 15:00 23:00 07:00 Intake Total 480 ml 120 ml Balance 480 ml 120 ml Labs: Laboratory Tests Test 10/23/21 05:53 Prothrombin Time 31.4 SEC (9.4-11.4) H Prothrombin Time INR 3.1 (0.9-1.1) H Current Medications: Meds: Laboratory Tests Test 10/23/21 05:53 Prothrombin Time 31.4 SEC Prothromb Time International Ratio 3.1 Current Medications Medications (Trade) Dose Ordered Sig/Corky Route PRN Reason Start Time Stop Time Status Last Admin Dose Admin Multi-Ingredient Ointment (Analgesic [place]) 1 sam PRN QID PRN TP MUSCLE PAIN 10/20/21 16:30 Al Hydroxide/Mg Hydroxide (Mylanta Plus Xs) 15 ml PRN AFTMEALHC PRN PO DYSPEPSIA 10/20/21 16:30 Cancel Acetaminophen (Tylenol) 650 mg PRN Q4HRS PRN PO MILD PAIN / TEMP > 100.3'F 10/20/21 17:15 Acetaminophen (Tylenol) 500 mg Q8HRS PO 10/20/21 22:00 10/23/21 20:15 Aspirin (Aspirin Enteric Coated) 81 mg DAILY PO 10/21/21 09:00 10/20/21 18:50 DC Calcium Carbonate/ Glycine (Tums) 500 mg PRN Q4HRS PRN PO HEARTBURN / GAS 10/20/21 17:30 Donepezil HCl (Aricept) 10 mg QHS PO 10/20/21 21:00 10/21/21 16:23 DC 10/20/21 20:10 Gabapentin (Neurontin) 300 mg TID PO 10/20/21 21:00 10/23/21 20:15 Loperamide HCl (Imodium) 4 mg PRN Q4HRS PRN PO DIARRHEA 10/20/21 17:15 Al Hydroxide/Mg Hydroxide (Mylanta Plus Xs) 30 ml PRN Q4HRS PRN PO indigestion & diarrhea 10/20/21 17:15 Magnesium Hydroxide (Milk Of Magnesia) 2,400 mg PRN Q24HRS PRN PO CONSTIPATION 10/20/21 17:15 10/23/21 20:16 Memantine (Namenda) 10 mg BID PO 10/20/21 21:00 10/21/21 16:23 DC 10/21/21 07:46 Sertraline HCl (Zoloft) 50 mg QHS PO 10/20/21 21:00 10/22/21 10:23 DC 10/21/21 19:41 Tramadol HCl (Ultram) 50 mg TID PO 10/20/21 21:00 10/23/21 20:15 Trazodone HCl (Desyrel) 25 mg BID PO 10/20/21 21:00 10/23/21 20:14 Trazodone HCl (Desyrel) 25 mg PRN Q8HRS PRN PO anxiety 10/20/21 17:15 10/23/21 15:24 Artificial Tears (Artificial Tears) 2 drop PRN Q4HRS PRN OU DRY EYE 10/20/21 17:30 Multivitamins/ Calcium (Thera-M Plus) 1 tab DAILY PO 10/21/21 09:00 10/23/21 08:27 Non-Formulary Medication (Warfarin Sodium ) 6 mg AFTRNOON PO 10/21/21 13:00 UNV Aspirin (Aspirin Chewable) 81 mg DAILYWBKFT PO 10/21/21 08:00 10/23/21 08:27 Lidocaine (Lidoderm) 1 patch PRN DAILY TD 10/20/21 19:00 10/22/21 14:58 DC Miscellaneous (Lidoderm Patch Removal) 1 ea QHS MC 10/20/21 21:00 10/21/21 19:42 Info (Anti-Coagulation Monitoring By Pharmacy) 1 each PRN DAILY PRN MC SEE COMMENTS 10/20/21 19:15 Warfarin Sodium (Coumadin Per Pharmacy) 1 each PRN DAILY PRN MC SEE COMMENTS 10/20/21 19:30 10/23/21 15:11 Warfarin Sodium (Coumadin) 6 mg 1X WARF ONCE PO 10/20/21 21:30 10/20/21 21:31 DC 10/20/21 21:30 Warfarin Sodium (Coumadin) 6 mg 1X WARF ONCE PO 10/21/21 16:00 10/21/21 16:01 DC 10/21/21 15:49 Divalproex Sodium (Depakote Sprinkles) 125 mg 0900,1700 PO 10/21/21 17:00 10/23/21 17:00 Warfarin Sodium (Coumadin) 4 mg 1X WARF ONCE PO 10/22/21 16:00 10/22/21 16:01 DC 10/22/21 17:05 Duloxetine HCl (Cymbalta) 20 mg DAILY PO 10/23/21 09:00 10/25/21 10:00 10/23/21 08:27 Duloxetine HCl (Cymbalta) 40 mg DAILY PO 10/26/21 09:00 Lidocaine (Lidoderm) 1 patch DAILY TD 10/23/21 09:00 10/23/21 08:27 Warfarin Sodium (Coumadin - No Dose Today) 1 each 1X WARF ONCE MC 10/23/21 16:00 10/23/21 16:01 DC 10/23/21 16:00 Current Medications Medications (Trade) Dose Ordered Sig/Corky Route PRN Reason Start Time Stop Time Status Last Admin Dose Admin Duloxetine HCl (Cymbalta) 20 mg DAILY PO 10/23/21 09:00 10/25/21 10:00 10/23/21 08:27 Lidocaine (Lidoderm) 1 patch DAILY TD 10/23/21 09:00 10/23/21 08:27 Warfarin Sodium (Coumadin - No Dose Today) 1 each 1X WARF ONCE MC 10/23/21 16:00 10/23/21 16:01 DC 10/23/21 16:00 I have reviewed the current psychotropics carefully including drug interactions. Risk benefit ratio favors no change other than as noted in my dictated progress note. 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
[2021-10-24] MEDS: traZODone 50 MG TABLET. PO SCH ×3 (01:32→19:52)
[2021-10-24] MEDS: traMADol 50 MG TABLET PO SCH ×4 (01:32→19:53)
[2021-10-24] MEDS: ACETAMINOPHEN 500 MG TABLET PO SCH ×4 (01:33→19:52)
[2021-10-24] MEDS: GABAPENTIN 300 MG CAPSULE. PO SCH ×4 (01:33→19:53)
[2021-10-24 05:57] VITALS: BP 108/71
[2021-10-24] MEDS: MULTIVITAMIN with MINERAL TABLET. PO SCH (07:45)
[2021-10-24] MEDS: LIDOCAINE (700MG/PATCH) PATCH. TD SCH (07:45)
[2021-10-24] MEDS: ASPIRIN CHEWABLE 81 MG TABLET. PO SCH (07:45)
[2021-10-24] MEDS: DIVALPROEX 125 MG CAP.SPRINK PO SCH ×2 (07:46→17:13)
[2021-10-24] MEDS: DULoxetine HCL 20 MG CAPSULE.DR PO SCH (07:46)
--- NOTE | 2021-10-24 11:14 | NUR ---
Pharmacy Warfarin Dosing Note S:Pharmacy consulted to assist with anticoagulation therapy started 10/20/21 with target INR: 2 -3 O:ELINORCHRISTELLE Ruano is a 75 year old M with Atrial Fibrillation LABS: Last INR: 2.8 Last HGB: 11 Last HCT: 33.2 Last PLT: 192 Last dose of Hold given on 10/22/21 at 1600 Previous Regimen: 6MG DAILY HOME DOSE Vitamin K given: N Drug Interaction Changes: Same Interacting Drug Ongoing Drug Interactions: SERTRALINE A:INR Within desired Range. Target Range for this patient is: 2 -3 P: Warfarin dose: 4 mg Today at 1600 Bridge Therapy: None Next INR due 10/25 Pharmacy anticoagulation service will continue to follow. ELEONORA FISHER, 10/24/21 [id number]
--- NOTE | 2021-10-24 12:29 | NUR ---
Nsg Note; bentley settled briefly for breakfast and ate his entire sausage biscuit. He has had an Ensure this am and is drinking the second one. He ate half of his chicken sandwich for lunch. He has been wandering in the am but is calmer overall. He is talking to himself less, but has been talking about his mommy. He cont to be disorganized, responding to his name but not answering questions.
[2021-10-24 15:54] VITALS: BP 107/70
[2021-10-24] MEDS ORDERED: WARFARIN 4 MG TABLET. PO ONE (16:00)
--- NOTE | 2021-10-24 18:37 | NUR ---
Nsg Note; Randell has sat and eaten part of each meal today and is taking in oral fluids well
[2021-10-24] MEDS: PATCH REMOVAL. MC SCH (19:52)
[2021-10-24] MEDS: MAGNESIUM HYDROXIDE 2,400 MG/30 ML ORAL.SUSP. PO PRN (19:53)
--- NOTE | 2021-10-24 21:30 | PDOC ---
Exam Note: Shayne Note: Please also refer to the separate dictated note~for this date of service dictated separately.~Patient seen individually. Discussed the patient with Nursing staff reviewed the chart.~Reviewed interim history and current functioning. Reviewed vital signs,~Labs/ Radiology~and current medications noted below. Continue current treatment with the changes noted in the dictated addendum note Assessment: Vital Signs/I&O: Vital Signs Date Time Temp Pulse Resp B/P (MAP) Pulse Ox O2 Delivery O2 Flow Rate FiO2 10/24/21 19:53 96 10/24/21 15:54 97.8 77 18 107/70 (82) 10/24/21 05:57 Room Air I & O 10/23/21 10/23/21 10/24/21 15:00 23:00 07:00 Intake Total 480 ml 0 ml Balance 480 ml 0 ml Labs: Laboratory Tests Test 10/24/21 06:37 Prothrombin Time 28.5 SEC (9.4-11.4) H Prothrombin Time INR 2.8 (0.9-1.1) H Current Medications: Meds: Laboratory Tests Test 10/24/21 06:37 Prothrombin Time 28.5 SEC Prothromb Time International Ratio 2.8 Current Medications Medications (Trade) Dose Ordered Sig/Corky Route PRN Reason Start Time Stop Time Status Last Admin Dose Admin Multi-Ingredient Ointment (Analgesic [place]) 1 sam PRN QID PRN TP MUSCLE PAIN 10/20/21 16:30 Al Hydroxide/Mg Hydroxide (Mylanta Plus Xs) 15 ml PRN AFTMEALHC PRN PO DYSPEPSIA 10/20/21 16:30 Cancel Acetaminophen (Tylenol) 650 mg PRN Q4HRS PRN PO MILD PAIN / TEMP > 100.3'F 10/20/21 17:15 Acetaminophen (Tylenol) 500 mg Q8HRS PO 10/20/21 22:00 10/24/21 19:52 Aspirin (Aspirin Enteric Coated) 81 mg DAILY PO 10/21/21 09:00 10/20/21 18:50 DC Calcium Carbonate/ Glycine (Tums) 500 mg PRN Q4HRS PRN PO HEARTBURN / GAS 10/20/21 17:30 Donepezil HCl (Aricept) 10 mg QHS PO 10/20/21 21:00 10/21/21 16:23 DC 10/20/21 20:10 Gabapentin (Neurontin) 300 mg TID PO 10/20/21 21:00 10/24/21 19:53 Loperamide HCl (Imodium) 4 mg PRN Q4HRS PRN PO DIARRHEA 10/20/21 17:15 Al Hydroxide/Mg Hydroxide (Mylanta Plus Xs) 30 ml PRN Q4HRS PRN PO indigestion & diarrhea 10/20/21 17:15 Magnesium Hydroxide (Milk Of Magnesia) 2,400 mg PRN Q24HRS PRN PO CONSTIPATION 10/20/21 17:15 10/24/21 19:53 Memantine (Namenda) 10 mg BID PO 10/20/21 21:00 10/21/21 16:23 DC 10/21/21 07:46 Sertraline HCl (Zoloft) 50 mg QHS PO 10/20/21 21:00 10/22/21 10:23 DC 10/21/21 19:41 Tramadol HCl (Ultram) 50 mg TID PO 10/20/21 21:00 10/24/21 19:53 Trazodone HCl (Desyrel) 25 mg BID PO 10/20/21 21:00 10/24/21 19:52 Trazodone HCl (Desyrel) 25 mg PRN Q8HRS PRN PO anxiety 10/20/21 17:15 10/23/21 15:24 Artificial Tears (Artificial Tears) 2 drop PRN Q4HRS PRN OU DRY EYE 10/20/21 17:30 Multivitamins/ Calcium (Thera-M Plus) 1 tab DAILY PO 10/21/21 09:00 10/24/21 07:45 Non-Formulary Medication (Warfarin Sodium ) 6 mg AFTRNOON PO 10/21/21 13:00 UNV Aspirin (Aspirin Chewable) 81 mg DAILYWBKFT PO 10/21/21 08:00 10/24/21 07:45 Lidocaine (Lidoderm) 1 patch PRN DAILY TD 10/20/21 19:00 10/22/21 14:58 DC Miscellaneous (Lidoderm Patch Removal) 1 ea QHS MC 10/20/21 21:00 10/24/21 19:52 Info (Anti-Coagulation Monitoring By Pharmacy) 1 each PRN DAILY PRN MC SEE COMMENTS 10/20/21 19:15 Warfarin Sodium (Coumadin Per Pharmacy) 1 each PRN DAILY PRN MC SEE COMMENTS 10/20/21 19:30 10/24/21 11:13 Warfarin Sodium (Coumadin) 6 mg 1X WARF ONCE PO 10/20/21 21:30 10/20/21 21:31 DC 10/20/21 21:30 Warfarin Sodium (Coumadin) 6 mg 1X WARF ONCE PO 10/21/21 16:00 10/21/21 16:01 DC 10/21/21 15:49 Divalproex Sodium (Depakote Sprinkles) 125 mg 0900,1700 PO 10/21/21 17:00 10/24/21 17:13 Warfarin Sodium (Coumadin) 4 mg 1X WARF ONCE PO 10/22/21 16:00 10/22/21 16:01 DC 10/22/21 17:05 Duloxetine HCl (Cymbalta) 20 mg DAILY PO 10/23/21 09:00 10/25/21 10:00 10/24/21 07:46 Duloxetine HCl (Cymbalta) 40 mg DAILY PO 10/26/21 09:00 Lidocaine (Lidoderm) 1 patch DAILY TD 10/23/21 09:00 10/24/21 07:45 Warfarin Sodium (Coumadin - No Dose Today) 1 each 1X WARF ONCE MC 10/23/21 16:00 10/23/21 16:01 DC 10/23/21 16:00 Warfarin Sodium (Coumadin) 4 mg 1X WARF ONCE PO 10/24/21 16:00 10/24/21 16:01 DC 10/24/21 17:46 Current Medications Medications (Trade) Dose Ordered Sig/Corky Route PRN Reason Start Time Stop Time Status Last Admin Dose Admin Warfarin Sodium (Coumadin) 4 mg 1X WARF ONCE PO 10/24/21 16:00 10/24/21 16:01 DC 10/24/21 17:46 I have reviewed the current psychotropics carefully including drug interactions. Risk benefit ratio favors no change other than as noted in my dictated progress note. 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
[2021-10-25] MEDS: ACETAMINOPHEN 500 MG TABLET PO SCH ×3 (05:18→19:51)
[2021-10-25 06:09] VITALS: BP 113/70
--- NOTE | 2021-10-25 06:22 | NUR ---
Patient is located in another patient's bed on assumption of care, asleep. He was somewhat irritable when woken up to move, but followed direction. Compliant with assessments and HS cares. Took meds crushed and mixed with Ensure. PRN MOM given for no recorded BM since 10/19, pending effect. Patient woke up at 0445. Irritable with shower. Currently sitting in the day room watching television with peers.
[2021-10-25 08:37] LABS: BASO % 0 % (0-3); EOS # 0.2 x10^3/uL (0.0-0.7); EOS % 2 % (0-3); HEMATOCRIT 35.2 % (39.0-53.0); HEMOGLOBIN 11.6 g/dL (13.0-17.5); LYMPH # 0.6 x10^3/uL (1.0-4.8); LYMPH % 8 % (24-48); MEAN CORPUSCULAR HEMOGLOBIN 31 pg (25-35); MEAN CORPUSCULAR HGB CONC 33 g/dL (31-37); MEAN CORPUSCULAR VOLUME 95 fL (79-100); MONO # 0.6 x10^3/uL (0.0-1.1); MONO % 7 % (0-9); NEUT # 6.3 x10^3uL (1.8-7.7); NEUT % 82 % (31-73); PLATELET COUNT 196 x10^3/uL (140-400); RED BLOOD COUNT 3.72 x10^6/uL (4.30-5.70); RED CELL DISTRIBUTION WIDTH 15.4 % (11.5-14.5); WHITE BLOOD COUNT 7.7 x10^3/uL (4.0-11.0)
[2021-10-25] MEDS: DULoxetine HCL 20 MG CAPSULE.DR PO SCH (08:45)
[2021-10-25] MEDS: GABAPENTIN 300 MG CAPSULE. PO SCH ×3 (08:45→19:51)
[2021-10-25] MEDS: traZODone 50 MG TABLET. PO SCH ×2 (08:46→19:51)
[2021-10-25] MEDS: DIVALPROEX 125 MG CAP.SPRINK PO SCH ×2 (08:46→17:11)
[2021-10-25] MEDS: MULTIVITAMIN with MINERAL TABLET. PO SCH (08:46)
[2021-10-25] MEDS: traMADol 50 MG TABLET PO SCH ×3 (08:46→19:51)
[2021-10-25] MEDS: LIDOCAINE (700MG/PATCH) PATCH. TD SCH (08:46)
[2021-10-25] MEDS: ASPIRIN CHEWABLE 81 MG TABLET. PO SCH (08:46)
[2021-10-25 08:47] LABS: ALBUMIN 3.2 g/dL (3.4-5.0); ALBUMIN/GLOBULIN RATIO 0.9 (1.0-1.7); ALK PHOS 82 U/L (46-116); ALT (SGPT) 27 U/L (16-63); ANION GAP 9 (6-14); AST (SGOT) 26 U/L (15-37); BLOOD UREA NITROGEN 24 mg/dL (8-26); BUN/CREATININE RATIO 24 (6-20); CALCIUM 8.6 mg/dL (8.5-10.1); CARBON DIOXIDE 28 mmol/L (21-32); CHLORIDE 108 mmol/L (98-107); GFR 72.5; GLUCOSE 97 mg/dL (70-99); POTASSIUM 3.9 mmol/L (3.5-5.1); SODIUM 145 mmol/L (136-145); TOTAL BILIRUBIN 0.5 mg/dL (0.2-1.0); TOTAL PROTEIN 6.7 g/dL (6.4-8.2)
[2021-10-25 08:53] LABS: VAL ACID 15 mcg/mL (50-100)
--- NOTE | 2021-10-25 14:47 | NUR ---
Nursing notes: Patient in dinning room for medications & assessment. He is compliant with medications crushed in pudding. He is A/O to self only, unable to voice date of or respond to questions on subject. He has chronic back pain that he gets scheduled medication for but appears to have break through pain. Patient is highly disorganized, wonders through halls talking to himself, and about mommy. He ambulates without assistance, can be unsteady at times & requires 1 staff assist with ADLs. He is currently wondering through the [place]z talking to himself. Will continue to monitor.
[2021-10-25 15:46] VITALS: BP 113/66
[2021-10-25] MEDS ORDERED: WARFARIN 4 MG TABLET. PO ONE (16:00)
[2021-10-25] MEDS: PATCH REMOVAL. MC SCH (19:51)
--- NOTE | 2021-10-25 21:30 | PDOC ---
Exam Note: Shayne Note: Please also refer to the separate dictated note~for this date of service dictated separately.~Patient seen individually. Discussed the patient with Nursing staff reviewed the chart.~Reviewed interim history and current functioning. Reviewed vital signs,~Labs/ Radiology~and current medications noted below. Continue current treatment with the changes noted in the dictated addendum note Assessment: Vital Signs/I&O: Vital Signs Date Time Temp Pulse Resp B/P (MAP) Pulse Ox O2 Delivery O2 Flow Rate FiO2 10/25/21 19:51 98 10/25/21 15:46 98.0 82 16 113/66 (82) Room Air I & O 10/24/21 10/24/21 10/25/21 15:00 23:00 07:00 Intake Total 720 ml 720 ml Balance 720 ml 720 ml Labs: Laboratory Tests Test 10/25/21 07:50 10/25/21 12:55 White Blood Count 7.7 x10^3/uL (4.0-11.0) Red Blood Count 3.72 x10^6/uL (4.30-5.70) L Hemoglobin 11.6 g/dL (13.0-17.5) L Hematocrit 35.2 % (39.0-53.0) L Mean Corpuscular Volume 95 fL (79-100) Mean Corpuscular Hemoglobin 31 pg (25-35) Mean Corpuscular Hemoglobin Concent 33 g/dL (31-37) Red Cell Distribution Width 15.4 % (11.5-14.5) H Platelet Count 196 x10^3/uL (140-400) Neutrophils (%) (Auto) 82 % (31-73) H Lymphocytes (%) (Auto) 8 % (24-48) L Monocytes (%) (Auto) 7 % (0-9) Eosinophils (%) (Auto) 2 % (0-3) Basophils (%) (Auto) 0 % (0-3) Neutrophils # (Auto) 6.3 x10^3uL (1.8-7.7) Lymphocytes # (Auto) 0.6 x10^3/uL (1.0-4.8) L Monocytes # (Auto) 0.6 x10^3/uL (0.0-1.1) Eosinophils # (Auto) 0.2 x10^3/uL (0.0-0.7) Basophils # (Auto) 0.0 x10^3/uL (0.0-0.2) Sodium Level 145 mmol/L (136-145) Potassium Level 3.9 mmol/L (3.5-5.1) Chloride Level 108 mmol/L (98-107) H Carbon Dioxide Level 28 mmol/L (21-32) Anion Gap 9 (6-14) Blood Urea Nitrogen 24 mg/dL (8-26) Creatinine 1.0 mg/dL (0.7-1.3) Estimated GFR (Cockcroft-Gault) 72.5 BUN/Creatinine Ratio 24 (6-20) H Glucose Level 97 mg/dL (70-99) Calcium Level 8.6 mg/dL (8.5-10.1) Total Bilirubin 0.5 mg/dL (0.2-1.0) Aspartate Amino Transferase (AST) 26 U/L (15-37) Alanine Aminotransferase (ALT) 27 U/L (16-63) Alkaline Phosphatase 82 U/L (46-116) Total Protein 6.7 g/dL (6.4-8.2) Albumin 3.2 g/dL (3.4-5.0) L Albumin/Globulin Ratio 0.9 (1.0-1.7) L Valproic Acid Level 15 mcg/mL (50-100) L Valproic Acid Last Dose Date 10/24/21 Valproic Acid Last Dose Time 2100 Prothrombin Time 26.4 SEC (9.4-11.4) H Prothrombin Time INR 2.6 (0.9-1.1) H Current Medications: Meds: Laboratory Tests Test 10/25/21 07:50 10/25/21 12:55 White Blood Count 7.7 x10^3/uL Red Blood Count 3.72 x10^6/uL Hemoglobin 11.6 g/dL Hematocrit 35.2 % Mean Corpuscular Volume 95 fL Mean Corpuscular Hemoglobin 31 pg Mean Corpuscular Hemoglobin Concent 33 g/dL Red Cell Distribution Width 15.4 % Platelet Count 196 x10^3/uL Neutrophils (%) (Auto) 82 % Lymphocytes (%) (Auto) 8 % Monocytes (%) (Auto) 7 % Eosinophils (%) (Auto) 2 % Basophils (%) (Auto) 0 % Neutrophils # (Auto) 6.3 x10^3uL Lymphocytes # (Auto) 0.6 x10^3/uL Monocytes # (Auto) 0.6 x10^3/uL Eosinophils # (Auto) 0.2 x10^3/uL Basophils # (Auto) 0.0 x10^3/uL Sodium Level 145 mmol/L Potassium Level 3.9 mmol/L Chloride Level 108 mmol/L Carbon Dioxide Level 28 mmol/L Anion Gap 9 Blood Urea Nitrogen 24 mg/dL Creatinine 1.0 mg/dL Estimated GFR (Cockcroft-Gault) 72.5 BUN/Creatinine Ratio 24 Glucose Level 97 mg/dL Calcium Level 8.6 mg/dL Total Bilirubin 0.5 mg/dL Aspartate Amino Transf (AST/SGOT) 26 U/L Alanine Aminotransferase (ALT/SGPT) 27 U/L Alkaline Phosphatase 82 U/L Total Protein 6.7 g/dL Albumin 3.2 g/dL Albumin/Globulin Ratio 0.9 Valproic Acid (Depakene) Level 15 mcg/mL Valproic Acid Last Dose Date 10/24/21 Valproic Acid Last Dose Time 2100 Prothrombin Time 26.4 SEC Prothromb Time International Ratio 2.6 Current Medications Medications (Trade) Dose Ordered Sig/Corky Route PRN Reason Start Time Stop Time Status Last Admin Dose Admin Multi-Ingredient Ointment (Analgesic [place]) 1 sam PRN QID PRN TP MUSCLE PAIN 10/20/21 16:30 Al Hydroxide/Mg Hydroxide (Mylanta Plus Xs) 15 ml PRN AFTMEALHC PRN PO DYSPEPSIA 10/20/21 16:30 Cancel Acetaminophen (Tylenol) 650 mg PRN Q4HRS PRN PO MILD PAIN / TEMP > 100.3'F 10/20/21 17:15 Acetaminophen (Tylenol) 500 mg Q8HRS PO 10/20/21 22:00 10/25/21 19:51 Aspirin (Aspirin Enteric Coated) 81 mg DAILY PO 10/21/21 09:00 10/20/21 18:50 DC Calcium Carbonate/ Glycine (Tums) 500 mg PRN Q4HRS PRN PO HEARTBURN / GAS 10/20/21 17:30 Donepezil HCl (Aricept) 10 mg QHS PO 10/20/21 21:00 10/21/21 16:23 DC 10/20/21 20:10 Gabapentin (Neurontin) 300 mg TID PO 10/20/21 21:00 10/25/21 19:51 Loperamide HCl (Imodium) 4 mg PRN Q4HRS PRN PO DIARRHEA 10/20/21 17:15 Al Hydroxide/Mg Hydroxide (Mylanta Plus Xs) 30 ml PRN Q4HRS PRN PO indigestion & diarrhea 10/20/21 17:15 Magnesium Hydroxide (Milk Of Magnesia) 2,400 mg PRN Q24HRS PRN PO CONSTIPATION 10/20/21 17:15 10/24/21 19:53 Memantine (Namenda) 10 mg BID PO 10/20/21 21:00 10/21/21 16:23 DC 10/21/21 07:46 Sertraline HCl (Zoloft) 50 mg QHS PO 10/20/21 21:00 10/22/21 10:23 DC 10/21/21 19:41 Tramadol HCl (Ultram) 50 mg TID PO 10/20/21 21:00 10/25/21 19:51 Trazodone HCl (Desyrel) 25 mg BID PO 10/20/21 21:00 10/25/21 19:51 Trazodone HCl (Desyrel) 25 mg PRN Q8HRS PRN PO anxiety 10/20/21 17:15 10/23/21 15:24 Artificial Tears (Artificial Tears) 2 drop PRN Q4HRS PRN OU DRY EYE 10/20/21 17:30 Multivitamins/ Calcium (Thera-M Plus) 1 tab DAILY PO 10/21/21 09:00 10/25/21 08:46 Non-Formulary Medication (Warfarin Sodium ) 6 mg AFTRNOON PO 10/21/21 13:00 UNV Aspirin (Aspirin Chewable) 81 mg DAILYWBKFT PO 10/21/21 08:00 10/25/21 08:46 Lidocaine (Lidoderm) 1 patch PRN DAILY TD 10/20/21 19:00 10/22/21 14:58 DC Miscellaneous (Lidoderm Patch Removal) 1 ea QHS MC 10/20/21 21:00 10/25/21 19:51 Info (Anti-Coagulation Monitoring By Pharmacy) 1 each PRN DAILY PRN MC SEE COMMENTS 10/20/21 19:15 Warfarin Sodium (Coumadin Per Pharmacy) 1 each PRN DAILY PRN MC SEE COMMENTS 10/20/21 19:30 10/25/21 14:31 Warfarin Sodium (Coumadin) 6 mg 1X WARF ONCE PO 10/20/21 21:30 10/20/21 21:31 DC 10/20/21 21:30 Warfarin Sodium (Coumadin) 6 mg 1X WARF ONCE PO 10/21/21 16:00 10/21/21 16:01 DC 10/21/21 15:49 Divalproex Sodium (Depakote Sprinkles) 125 mg 0900,1700 PO 10/21/21 17:00 10/25/21 17:11 Warfarin Sodium (Coumadin) 4 mg 1X WARF ONCE PO 10/22/21 16:00 10/22/21 16:01 DC 10/22/21 17:05 Duloxetine HCl (Cymbalta) 20 mg DAILY PO 10/23/21 09:00 10/25/21 10:00 DC 10/25/21 08:45 Duloxetine HCl (Cymbalta) 40 mg DAILY PO 10/26/21 09:00 Lidocaine (Lidoderm) 1 patch DAILY TD 10/23/21 09:00 10/25/21 08:46 Warfarin Sodium (Coumadin - No Dose Today) 1 each 1X WARF ONCE MC 10/23/21 16:00 10/23/21 16:01 DC 10/23/21 16:00 Warfarin Sodium (Coumadin) 4 mg 1X WARF ONCE PO 10/24/21 16:00 10/24/21 16:01 DC 10/24/21 17:46 Warfarin Sodium (Coumadin) 4 mg 1X WARF ONCE PO 10/25/21 16:00 10/25/21 16:01 DC 10/25/21 16:13 Current Medications Medications (Trade) Dose Ordered Sig/Corky Route PRN Reason Start Time Stop Time Status Last Admin Dose Admin Warfarin Sodium (Coumadin) 4 mg 1X WARF ONCE PO 10/25/21 16:00 10/25/21 16:01 DC 10/25/21 16:13 I have reviewed the current psychotropics carefully including drug interactions. Risk benefit ratio favors no change other than as noted in my dictated progress note. 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
[2021-10-26] MEDS: ACETAMINOPHEN 500 MG TABLET PO SCH ×3 (04:57→21:48)
[2021-10-26 05:56] VITALS: BP 124/70
--- NOTE | 2021-10-26 07:29 | PDOC ---
Exam Note: Shayne Note: This note is a late entry for 10/23/2021 covers elements not covered in my initial note. Subjective: The patient was seen individually on 10/23/2021, discussed and reviewed the chart with Lynn NEFF. The patient slept 7 hours previous night. He remains confused, pacing, wandering. He did receive trazodone p.r.n. He would not sit down to eat. He does complain of back pain. Received Lidoderm patch which he pulled off and threw at the nursing staff. Review of Systems: He is not forthcoming about any specific symptoms but does have pain. No CV, , pulmonary, eye, ENT system symptoms on review. Mental Status Exam: The patient is oriented to himself. Insight and judgment, recent and remote memory, attention and concentration, fund of knowledge is poor consistent with his diagnosis. Laboratory Data: Reviewed. Impression: Major neurocognitive disorder, Alzheimer, vascular with delusion, depression behavioral disturbance. Anxiety disorder unspecified. Impulse control disorder unspecified. Plan: Maintain current psychotropics unchanged. Assessment: Vital Signs/I&O: Vital Signs Date Time Temp Pulse Resp B/P (MAP) Pulse Ox O2 Delivery O2 Flow Rate FiO2 10/26/21 05:56 97.8 66 20 124/70 (88) 93 10/25/21 15:46 Room Air I & O 10/25/21 10/25/21 10/26/21 15:00 23:00 07:00 Intake Total 320 ml 240 ml 0 ml Balance 320 ml 240 ml 0 ml Labs: Laboratory Tests Test 10/25/21 07:50 10/25/21 12:55 White Blood Count 7.7 x10^3/uL (4.0-11.0) Red Blood Count 3.72 x10^6/uL (4.30-5.70) L Hemoglobin 11.6 g/dL (13.0-17.5) L Hematocrit 35.2 % (39.0-53.0) L Mean Corpuscular Volume 95 fL (79-100) Mean Corpuscular Hemoglobin 31 pg (25-35) Mean Corpuscular Hemoglobin Concent 33 g/dL (31-37) Red Cell Distribution Width 15.4 % (11.5-14.5) H Platelet Count 196 x10^3/uL (140-400) Neutrophils (%) (Auto) 82 % (31-73) H Lymphocytes (%) (Auto) 8 % (24-48) L Monocytes (%) (Auto) 7 % (0-9) Eosinophils (%) (Auto) 2 % (0-3) Basophils (%) (Auto) 0 % (0-3) Neutrophils # (Auto) 6.3 x10^3uL (1.8-7.7) Lymphocytes # (Auto) 0.6 x10^3/uL (1.0-4.8) L Monocytes # (Auto) 0.6 x10^3/uL (0.0-1.1) Eosinophils # (Auto) 0.2 x10^3/uL (0.0-0.7) Basophils # (Auto) 0.0 x10^3/uL (0.0-0.2) Sodium Level 145 mmol/L (136-145) Potassium Level 3.9 mmol/L (3.5-5.1) Chloride Level 108 mmol/L (98-107) H Carbon Dioxide Level 28 mmol/L (21-32) Anion Gap 9 (6-14) Blood Urea Nitrogen 24 mg/dL (8-26) Creatinine 1.0 mg/dL (0.7-1.3) Estimated GFR (Cockcroft-Gault) 72.5 BUN/Creatinine Ratio 24 (6-20) H Glucose Level 97 mg/dL (70-99) Calcium Level 8.6 mg/dL (8.5-10.1) Total Bilirubin 0.5 mg/dL (0.2-1.0) Aspartate Amino Transferase (AST) 26 U/L (15-37) Alanine Aminotransferase (ALT) 27 U/L (16-63) Alkaline Phosphatase 82 U/L (46-116) Total Protein 6.7 g/dL (6.4-8.2) Albumin 3.2 g/dL (3.4-5.0) L Albumin/Globulin Ratio 0.9 (1.0-1.7) L Valproic Acid Level 15 mcg/mL (50-100) L Valproic Acid Last Dose Date 10/24/21 Valproic Acid Last Dose Time 2100 Prothrombin Time 26.4 SEC (9.4-11.4) H Prothrombin Time INR 2.6 (0.9-1.1) H Current Medications: Meds: Current Medications Medications (Trade) Dose Ordered Sig/Corky Route PRN Reason Start Time Stop Time Status Last Admin Dose Admin Warfarin Sodium (Coumadin) 4 mg 1X WARF ONCE PO 10/25/21 16:00 10/25/21 16:01 DC 10/25/21 16:13 I have reviewed the current psychotropics carefully including drug interactions. Risk benefit ratio favors no change other than as noted in my dictated progress note. 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
--- NOTE | 2021-10-26 07:44 | PDOC ---
Exam Note: Shayne Note: This note is a late entry for 10/24/2021 covers elements not covered in my initial note. Subjective: The patient was seen individually on 10/24/2021, discussed and reviewed the chart with Ponce NEFF. The patient slept 9-1/4 hours previous night. Appetite is better, less pacing. He remains confused. Review of Systems: No CV, , pulmonary, eye, ENT system symptoms on review. Reliability poor. Mental Status Exam: The patient is oriented to himself. Insight and judgment, recent and remote memory, attention and concentration, fund of knowledge is poor consistent with his diagnosis. Laboratory Data: Reviewed. Impression: Major neurocognitive disorder, Alzheimer, vascular with delusion, depression behavioral disturbance. Anxiety disorder unspecified. Impulse control disorder unspecified. Plan: Maintain current psychotropics unchanged. Assessment: Vital Signs/I&O: Vital Signs Date Time Temp Pulse Resp B/P (MAP) Pulse Ox O2 Delivery O2 Flow Rate FiO2 10/26/21 05:56 97.8 66 20 124/70 (88) 93 10/25/21 15:46 Room Air I & O 10/25/21 10/25/21 10/26/21 15:00 23:00 07:00 Intake Total 320 ml 240 ml 0 ml Balance 320 ml 240 ml 0 ml Labs: Laboratory Tests Test 10/25/21 07:50 10/25/21 12:55 10/26/21 06:27 White Blood Count 7.7 x10^3/uL (4.0-11.0) Red Blood Count 3.72 x10^6/uL (4.30-5.70) L Hemoglobin 11.6 g/dL (13.0-17.5) L Hematocrit 35.2 % (39.0-53.0) L Mean Corpuscular Volume 95 fL (79-100) Mean Corpuscular Hemoglobin 31 pg (25-35) Mean Corpuscular Hemoglobin Concent 33 g/dL (31-37) Red Cell Distribution Width 15.4 % (11.5-14.5) H Platelet Count 196 x10^3/uL (140-400) Neutrophils (%) (Auto) 82 % (31-73) H Lymphocytes (%) (Auto) 8 % (24-48) L Monocytes (%) (Auto) 7 % (0-9) Eosinophils (%) (Auto) 2 % (0-3) Basophils (%) (Auto) 0 % (0-3) Neutrophils # (Auto) 6.3 x10^3uL (1.8-7.7) Lymphocytes # (Auto) 0.6 x10^3/uL (1.0-4.8) L Monocytes # (Auto) 0.6 x10^3/uL (0.0-1.1) Eosinophils # (Auto) 0.2 x10^3/uL (0.0-0.7) Basophils # (Auto) 0.0 x10^3/uL (0.0-0.2) Sodium Level 145 mmol/L (136-145) Potassium Level 3.9 mmol/L (3.5-5.1) Chloride Level 108 mmol/L (98-107) H Carbon Dioxide Level 28 mmol/L (21-32) Anion Gap 9 (6-14) Blood Urea Nitrogen 24 mg/dL (8-26) Creatinine 1.0 mg/dL (0.7-1.3) Estimated GFR (Cockcroft-Gault) 72.5 BUN/Creatinine Ratio 24 (6-20) H Glucose Level 97 mg/dL (70-99) Calcium Level 8.6 mg/dL (8.5-10.1) Total Bilirubin 0.5 mg/dL (0.2-1.0) Aspartate Amino Transferase (AST) 26 U/L (15-37) Alanine Aminotransferase (ALT) 27 U/L (16-63) Alkaline Phosphatase 82 U/L (46-116) Total Protein 6.7 g/dL (6.4-8.2) Albumin 3.2 g/dL (3.4-5.0) L Albumin/Globulin Ratio 0.9 (1.0-1.7) L Valproic Acid Level 15 mcg/mL (50-100) L Valproic Acid Last Dose Date 10/24/21 Valproic Acid Last Dose Time 2100 Prothrombin Time 26.4 SEC (9.4-11.4) H 26.3 SEC (9.4-11.4) H Prothrombin Time INR 2.6 (0.9-1.1) H 2.6 (0.9-1.1) H Current Medications: Meds: Current Medications Medications (Trade) Dose Ordered Sig/Corky Route PRN Reason Start Time Stop Time Status Last Admin Dose Admin Warfarin Sodium (Coumadin) 4 mg 1X WARF ONCE PO 10/25/21 16:00 10/25/21 16:01 DC 10/25/21 16:13 I have reviewed the current psychotropics carefully including drug interactions. Risk benefit ratio favors no change other than as noted in my dictated progress note. 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
--- NOTE | 2021-10-26 07:57 | PDOC ---
Exam Note: Shayne Note: This note is a late entry for 10/25/2021 covers elements not covered in my initial note. Subjective: The patient was seen individually on 10/25/2021, discussed and reviewed the chart with Ponce NEFF. The patient slept 8-1/2 hours previous night. Patients appetite remains poor. He has been up most of the day. Valproic acid level today is 15, even though it is subtherapeutic clinically, it is adequate for now since he is less impulsive. Confusion persists secondary to his dementia. Review of Systems: He is not forthcoming about any specific symptoms but does have pain. No CV, , pulmonary, eye, ENT system symptoms on review. Mental Status Exam: The patient is oriented to himself. Insight and judgment, recent and remote memory, attention and concentration, fund of knowledge is poor consistent with his diagnosis. Laboratory Data: Reviewed. Impression: Major neurocognitive disorder, Alzheimer, vascular with delusion, depression behavioral disturbance. Anxiety disorder unspecified. Impulse control disorder unspecified. Plan: We will continue to observe his behaviors. If he is more impulsive with mood lability, we may have to increase the Depakote. For now it is adequate, e corina though the level is subtherapeutic at 15. Assessment: Vital Signs/I&O: Vital Signs Date Time Temp Pulse Resp B/P (MAP) Pulse Ox O2 Delivery O2 Flow Rate FiO2 10/26/21 05:56 97.8 66 20 124/70 (88) 93 10/25/21 15:46 Room Air I & O 10/25/21 10/25/21 10/26/21 15:00 23:00 07:00 Intake Total 320 ml 240 ml 0 ml Balance 320 ml 240 ml 0 ml Labs: Laboratory Tests Test 10/25/21 12:55 10/26/21 06:27 Prothrombin Time 26.4 SEC (9.4-11.4) H 26.3 SEC (9.4-11.4) H Prothrombin Time INR 2.6 (0.9-1.1) H 2.6 (0.9-1.1) H Current Medications: Meds: Current Medications Medications (Trade) Dose Ordered Sig/Corky Route PRN Reason Start Time Stop Time Status Last Admin Dose Admin Warfarin Sodium (Coumadin) 4 mg 1X WARF ONCE PO 10/25/21 16:00 10/25/21 16:01 DC 10/25/21 16:13 I have reviewed the current psychotropics carefully including drug interactions. Risk benefit ratio favors no change other than as noted in my dictated progress note. Diagnosis: Problems: (1) Impulse control disorder, unspecified (2) Anxiety disorder, unspecified (3) Dementia, vascular, with depression (4) Dementia, vascular, with delusions (5) Dementia in Alzheimer's disease with delusions (6) Major neurocognitive disorder (7) Dementia in Alzheimer's disease with early onset with behavioral disturbance CHADWICK ARAGON MD Oct 26, 2021 07:57
[2021-10-26] MEDS: LIDOCAINE (700MG/PATCH) PATCH. TD SCH (08:24)
[2021-10-26] MEDS: MULTIVITAMIN with MINERAL TABLET. PO SCH (08:24)
[2021-10-26] MEDS: traZODone 50 MG TABLET. PO SCH (08:24)
[2021-10-26] MEDS: DULoxetine HCL 20 MG CAPSULE.DR PO SCH (08:24)
[2021-10-26] MEDS: ASPIRIN CHEWABLE 81 MG TABLET. PO SCH (08:24)
[2021-10-26] MEDS: DIVALPROEX 125 MG CAP.SPRINK PO SCH ×2 (08:24→17:08)
[2021-10-26] MEDS: traMADol 50 MG TABLET PO SCH ×3 (08:25→21:00)
[2021-10-26] MEDS: GABAPENTIN 250 MG/5 ML ORAL SOLUTION. PO SCH ×3 (08:34→21:00)
[2021-10-26] MEDS ORDERED: fentaNYL 50MCG/HR 1 PATCH PATCH TD SCH (12:30)
--- NOTE | 2021-10-26 14:49 | NUR ---
Nursing notes: Patient in dinning room for medications & assessment. He is compliant with medications crushed in pudding. He is A/O to self only, unable to voice date of or respond to questions on subject. He has chronic back pain that he gets scheduled medication for but appears to have break through pain. New pain patch order noted for scheduled nursing home pain relief. This nurse held 1400 pain medications to observe assentiveness of new medication. Patient shakes handles & knocks on locked doors. He is highly disorganized, wonders through halls talking to himself, and about mommy. Although he has had a decrease in talking to himself since new pain patch applied. He ambulates without assistance, can be unsteady at times & requires 1 staff assist with ADLs. He is currently wondering through the cruz talking to himself. Will continue to monitor.
[2021-10-26 15:38] VITALS: BP 112/73
[2021-10-26] MEDS ORDERED: WARFARIN 4 MG TABLET. PO ONE (16:00)
[2021-10-26] MEDS: PATCH REMOVAL. MC SCH (21:00)
--- NOTE | 2021-10-26 21:10 | PDOC ---
Exam Note: Shayne Note: Please also refer to the separate dictated note~for this date of service dictated separately.~Patient seen individually. Discussed the patient with Nursing staff reviewed the chart.~Reviewed interim history and current functioning. Reviewed vital signs,~Labs/ Radiology~and current medications noted below. Continue current treatment with the changes noted in the dictated addendum note Assessment: Vital Signs/I&O: Vital Signs Date Time Temp Pulse Resp B/P (MAP) Pulse Ox O2 Delivery O2 Flow Rate FiO2 10/26/21 15:38 98.2 63 20 112/73 (86) 94 10/26/21 12:36 Room Air I & O 10/25/21 10/25/21 10/26/21 15:00 23:00 07:00 Intake Total 320 ml 240 ml 0 ml Balance 320 ml 240 ml 0 ml Labs: Laboratory Tests Test 10/26/21 06:27 Prothrombin Time 26.3 SEC (9.4-11.4) H Prothrombin Time INR 2.6 (0.9-1.1) H Current Medications: Meds: Laboratory Tests Test 10/26/21 06:27 Prothrombin Time 26.3 SEC Prothromb Time International Ratio 2.6 Current Medications Medications (Trade) Dose Ordered Sig/Corky Route PRN Reason Start Time Stop Time Status Last Admin Dose Admin Multi-Ingredient Ointment (Analgesic [place]) 1 sam PRN QID PRN TP MUSCLE PAIN 10/20/21 16:30 Al Hydroxide/Mg Hydroxide (Mylanta Plus Xs) 15 ml PRN AFTMEALHC PRN PO DYSPEPSIA 10/20/21 16:30 Cancel Acetaminophen (Tylenol) 650 mg PRN Q4HRS PRN PO MILD PAIN / TEMP > 100.3'F 10/20/21 17:15 Acetaminophen (Tylenol) 500 mg Q8HRS PO 10/20/21 22:00 10/26/21 04:57 Aspirin (Aspirin Enteric Coated) 81 mg DAILY PO 10/21/21 09:00 10/20/21 18:50 DC Calcium Carbonate/ Glycine (Tums) 500 mg PRN Q4HRS PRN PO HEARTBURN / GAS 10/20/21 17:30 Donepezil HCl (Aricept) 10 mg QHS PO 10/20/21 21:00 10/21/21 16:23 DC 10/20/21 20:10 Gabapentin (Neurontin) 300 mg TID PO 10/20/21 21:00 10/26/21 07:22 DC 10/25/21 19:51 Loperamide HCl (Imodium) 4 mg PRN Q4HRS PRN PO DIARRHEA 10/20/21 17:15 Al Hydroxide/Mg Hydroxide (Mylanta Plus Xs) 30 ml PRN Q4HRS PRN PO indigestion & diarrhea 10/20/21 17:15 Magnesium Hydroxide (Milk Of Magnesia) 2,400 mg PRN Q24HRS PRN PO CONSTIPATION 10/20/21 17:15 10/24/21 19:53 Memantine (Namenda) 10 mg BID PO 10/20/21 21:00 10/21/21 16:23 DC 10/21/21 07:46 Sertraline HCl (Zoloft) 50 mg QHS PO 10/20/21 21:00 10/22/21 10:23 DC 10/21/21 19:41 Tramadol HCl (Ultram) 50 mg TID PO 10/20/21 21:00 10/26/21 08:25 Trazodone HCl (Desyrel) 25 mg BID PO 10/20/21 21:00 10/26/21 20:21 DC 10/26/21 08:24 Trazodone HCl (Desyrel) 25 mg PRN Q8HRS PRN PO anxiety 10/20/21 17:15 10/23/21 15:24 Artificial Tears (Artificial Tears) 2 drop PRN Q4HRS PRN OU DRY EYE 10/20/21 17:30 Multivitamins/ Calcium (Thera-M Plus) 1 tab DAILY PO 10/21/21 09:00 10/26/21 08:24 Non-Formulary Medication (Warfarin Sodium ) 6 mg AFTRNOON PO 10/21/21 13:00 UNV Aspirin (Aspirin Chewable) 81 mg DAILYWBKFT PO 10/21/21 08:00 10/26/21 08:24 Lidocaine (Lidoderm) 1 patch PRN DAILY TD 10/20/21 19:00 10/22/21 14:58 DC Miscellaneous (Lidoderm Patch Removal) 1 ea QHS MC 10/20/21 21:00 10/25/21 19:51 Info (Anti-Coagulation Monitoring By Pharmacy) 1 each PRN DAILY PRN MC SEE COMMENTS 10/20/21 19:15 Warfarin Sodium (Coumadin Per Pharmacy) 1 each PRN DAILY PRN MC SEE COMMENTS 10/20/21 19:30 10/25/21 14:31 Warfarin Sodium (Coumadin) 6 mg 1X WARF ONCE PO 10/20/21 21:30 10/20/21 21:31 DC 10/20/21 21:30 Warfarin Sodium (Coumadin) 6 mg 1X WARF ONCE PO 10/21/21 16:00 10/21/21 16:01 DC 10/21/21 15:49 Divalproex Sodium (Depakote Sprinkles) 125 mg 0900,1700 PO 10/21/21 17:00 10/26/21 17:08 Warfarin Sodium (Coumadin) 4 mg 1X WARF ONCE PO 10/22/21 16:00 10/22/21 16:01 DC 10/22/21 17:05 Duloxetine HCl (Cymbalta) 20 mg DAILY PO 10/23/21 09:00 10/25/21 10:00 DC 10/25/21 08:45 Duloxetine HCl (Cymbalta) 40 mg DAILY PO 10/26/21 09:00 10/26/21 08:24 Lidocaine (Lidoderm) 1 patch DAILY TD 10/23/21 09:00 10/26/21 08:24 Warfarin Sodium (Coumadin - No Dose Today) 1 each 1X WARF ONCE 10/23/21 16:00 10/23/21 16:01 DC 10/23/21 16:00 Warfarin Sodium (Coumadin) 4 mg 1X WARF ONCE PO 10/24/21 16:00 10/24/21 16:01 DC 10/24/21 17:46 Warfarin Sodium (Coumadin) 4 mg 1X WARF ONCE PO 10/25/21 16:00 10/25/21 16:01 DC 10/25/21 16:13 Gabapentin (Neurontin Oral Soln) 300 mg TID PO 10/26/21 09:00 10/26/21 14:34 Fentanyl (Duragesic 50mcg/ Hr) 1 patch Q3DAYS TD 10/26/21 12:30 10/26/21 12:36 Warfarin Sodium (Coumadin) 4 mg 1X WARF ONCE PO 10/26/21 16:00 10/26/21 16:01 DC 10/26/21 17:08 Current Medications Medications (Trade) Dose Ordered Sig/Corky Route PRN Reason Start Time Stop Time Status Last Admin Dose Admin Duloxetine HCl (Cymbalta) 40 mg DAILY PO 10/26/21 09:00 10/26/21 08:24 Gabapentin (Neurontin Oral Soln) 300 mg TID PO 10/26/21 09:00 10/26/21 14:34 Fentanyl (Duragesic 50mcg/ Hr) 1 patch Q3DAYS TD 10/26/21 12:30 10/26/21 12:36 Warfarin Sodium (Coumadin) 4 mg 1X WARF ONCE PO 10/26/21 16:00 10/26/21 16:01 DC 10/26/21 17:08 I have reviewed the current psychotropics carefully including drug interactions. Risk benefit ratio favors no change other than as noted in my dictated progress note. 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
--- NOTE | 2021-10-26 22:48 | NUR ---
Pt withdrawn to room, lying in bed with eyes closed when approached. Pt appears drowsy this evening when woken up but is cooperative and compliant with requests. HS medications held this shift due to pt sleeping.
[2021-10-27] MEDS: ACETAMINOPHEN 500 MG TABLET PO SCH ×3 (05:37→20:23)
[2021-10-27 06:23] VITALS: BP 135/77
--- NOTE | 2021-10-27 08:01 | NUR ---
Pharmacy Warfarin Dosing Note S:Pharmacy consulted to assist with anticoagulation therapy started 10/20/21 with target INR: 2 -3 O:FELICITAGINNYCHRISTELLE LARSON is a 75 year old M with Atrial Fibrillation LABS: Last INR: 2.2 Last HGB: 11.6 Last HCT: 35.2 Last PLT: 196 Last dose of 4 mg given on 10/26/21 at 1600 Previous Regimen: 6MG DAILY HOME DOSE Vitamin K given: N Drug Interaction Changes: Same Interacting Drug Ongoing Drug Interactions: Duloxetine A:INR Within desired Range. Target Range for this patient is: 2 -3 P: Warfarin dose: 4 mg Today at 1600 Bridge Therapy: None Next INR due 10/28/21 Pharmacy anticoagulation service will continue to follow. HARRY STALLINGS, 10/27/21 0801
[2021-10-27] MEDS: ASPIRIN CHEWABLE 81 MG TABLET. PO SCH (08:10)
[2021-10-27] MEDS: MULTIVITAMIN with MINERAL TABLET. PO SCH (08:10)
[2021-10-27] MEDS: DULoxetine HCL 20 MG CAPSULE.DR PO SCH (08:10)
[2021-10-27] MEDS: DIVALPROEX 125 MG CAP.SPRINK PO SCH ×2 (08:10→16:28)
[2021-10-27] MEDS: LIDOCAINE (700MG/PATCH) PATCH. TD SCH (08:11)
[2021-10-27] MEDS: GABAPENTIN 250 MG/5 ML ORAL SOLUTION. PO SCH ×3 (09:00→20:22)
[2021-10-27] MEDS: traMADol 50 MG TABLET PO SCH ×3 (09:00→20:23)
[2021-10-27] MEDS ORDERED: fentaNYL 25MCG/HR 1 PATCH PATCH TD SCH (12:00)
--- NOTE | 2021-10-27 14:21 | NUR ---
Nursing notes: Patient in dinning room for medications & assessment. He is compliant with medications crushed in pudding. This nurse held selected medications due to excessive drowsiness. He is A/O to self only, unable to voice date of or respond to questions on subject. He has chronic back pain that he gets scheduled medication patch every 3 days for but appears to have some sedation noted. New pain patch order noted with decreased dosage for scheduled snf pain relief. Patient shakes his hands, wiggles door handles & knocks on locked doors. He is highly disorganized, wonders through halls talking to himself, and about mommy. He ambulates without assistance, can be unsteady at times & requires 1 to 2 staff assist with ADLs. He urinated on the floor & yelled out during shower. He is currently wondering through the cruz talking to himself. Will continue to monitor.
[2021-10-27] MEDS ORDERED: WARFARIN 4 MG TABLET. PO ONE (16:00)
[2021-10-27 16:10] VITALS: BP 106/60
[2021-10-27] MEDS: PATCH REMOVAL. MC SCH (20:23)
--- NOTE | 2021-10-27 21:35 | PDOC ---
Exam Note: Shayne Note: Please also refer to the separate dictated note~for this date of service dictated separately.~Patient seen individually. Discussed the patient with Nursing staff reviewed the chart.~Reviewed interim history and current functioning. Reviewed vital signs,~Labs/ Radiology~and current medications noted below. Continue current treatment with the changes noted in the dictated addendum note Assessment: Vital Signs/I&O: Vital Signs Date Time Temp Pulse Resp B/P (MAP) Pulse Ox O2 Delivery O2 Flow Rate FiO2 10/27/21 20:23 93 10/27/21 16:10 98.8 84 19 106/60 (75) 10/27/21 06:23 Room Air I & O 10/26/21 10/26/21 10/27/21 15:00 23:00 07:00 Intake Total 1140 ml 0 ml Balance 1140 ml 0 ml Labs: Laboratory Tests Test 10/27/21 06:07 Prothrombin Time 22.6 SEC (9.4-11.4) H Prothrombin Time INR 2.2 (0.9-1.1) H Current Medications: Meds: Laboratory Tests Test 10/27/21 06:07 Prothrombin Time 22.6 SEC Prothromb Time International Ratio 2.2 Current Medications Medications (Trade) Dose Ordered Sig/Corky Route PRN Reason Start Time Stop Time Status Last Admin Dose Admin Multi-Ingredient Ointment (Analgesic [place]) 1 sam PRN QID PRN TP MUSCLE PAIN 10/20/21 16:30 Al Hydroxide/Mg Hydroxide (Mylanta Plus Xs) 15 ml PRN AFTMEALHC PRN PO DYSPEPSIA 10/20/21 16:30 Cancel Acetaminophen (Tylenol) 650 mg PRN Q4HRS PRN PO MILD PAIN / TEMP > 100.3'F 10/20/21 17:15 Acetaminophen (Tylenol) 500 mg Q8HRS PO 10/20/21 22:00 10/27/21 20:23 Aspirin (Aspirin Enteric Coated) 81 mg DAILY PO 10/21/21 09:00 10/20/21 18:50 DC Calcium Carbonate/ Glycine (Tums) 500 mg PRN Q4HRS PRN PO HEARTBURN / GAS 10/20/21 17:30 Donepezil HCl (Aricept) 10 mg QHS PO 10/20/21 21:00 10/21/21 16:23 DC 10/20/21 20:10 Gabapentin (Neurontin) 300 mg TID PO 10/20/21 21:00 10/26/21 07:22 DC 10/25/21 19:51 Loperamide HCl (Imodium) 4 mg PRN Q4HRS PRN PO DIARRHEA 10/20/21 17:15 Al Hydroxide/Mg Hydroxide (Mylanta Plus Xs) 30 ml PRN Q4HRS PRN PO indigestion & diarrhea 10/20/21 17:15 Magnesium Hydroxide (Milk Of Magnesia) 2,400 mg PRN Q24HRS PRN PO CONSTIPATION 10/20/21 17:15 10/24/21 19:53 Memantine (Namenda) 10 mg BID PO 10/20/21 21:00 10/21/21 16:23 DC 10/21/21 07:46 Sertraline HCl (Zoloft) 50 mg QHS PO 10/20/21 21:00 10/22/21 10:23 DC 10/21/21 19:41 Tramadol HCl (Ultram) 50 mg TID PO 10/20/21 21:00 10/27/21 20:23 Trazodone HCl (Desyrel) 25 mg BID PO 10/20/21 21:00 10/26/21 20:21 DC 10/26/21 08:24 Trazodone HCl (Desyrel) 25 mg PRN Q8HRS PRN PO anxiety 10/20/21 17:15 10/23/21 15:24 Artificial Tears (Artificial Tears) 2 drop PRN Q4HRS PRN OU DRY EYE 10/20/21 17:30 Multivitamins/ Calcium (Thera-M Plus) 1 tab DAILY PO 10/21/21 09:00 10/27/21 08:10 Non-Formulary Medication (Warfarin Sodium ) 6 mg AFTRNOON PO 10/21/21 13:00 UNV Aspirin (Aspirin Chewable) 81 mg DAILYWBKFT PO 10/21/21 08:00 10/27/21 08:10 Lidocaine (Lidoderm) 1 patch PRN DAILY TD 10/20/21 19:00 10/22/21 14:58 DC Miscellaneous (Lidoderm Patch Removal) 1 ea QHS MC 10/20/21 21:00 10/27/21 20:23 Info (Anti-Coagulation Monitoring By Pharmacy) 1 each PRN DAILY PRN MC SEE COMMENTS 10/20/21 19:15 Warfarin Sodium (Coumadin Per Pharmacy) 1 each PRN DAILY PRN MC SEE COMMENTS 10/20/21 19:30 10/27/21 08:00 Warfarin Sodium (Coumadin) 6 mg 1X WARF ONCE PO 10/20/21 21:30 10/20/21 21:31 DC 10/20/21 21:30 Warfarin Sodium (Coumadin) 6 mg 1X WARF ONCE PO 10/21/21 16:00 10/21/21 16:01 DC 10/21/21 15:49 Divalproex Sodium (Depakote Sprinkles) 125 mg 0900,1700 PO 10/21/21 17:00 10/27/21 16:28 Warfarin Sodium (Coumadin) 4 mg 1X WARF ONCE PO 10/22/21 16:00 10/22/21 16:01 DC 10/22/21 17:05 Duloxetine HCl (Cymbalta) 20 mg DAILY PO 10/23/21 09:00 10/25/21 10:00 DC 10/25/21 08:45 Duloxetine HCl (Cymbalta) 40 mg DAILY PO 10/26/21 09:00 10/27/21 08:10 Lidocaine (Lidoderm) 1 patch DAILY TD 10/23/21 09:00 10/27/21 08:11 Warfarin Sodium (Coumadin - No Dose Today) 1 each 1X WARF ONCE MC 10/23/21 16:00 10/23/21 16:01 DC 10/23/21 16:00 Warfarin Sodium (Coumadin) 4 mg 1X WARF ONCE PO 10/24/21 16:00 10/24/21 16:01 DC 10/24/21 17:46 Warfarin Sodium (Coumadin) 4 mg 1X WARF ONCE PO 10/25/21 16:00 10/25/21 16:01 DC 10/25/21 16:13 Gabapentin (Neurontin Oral Soln) 300 mg TID PO 10/26/21 09:00 10/27/21 20:22 Fentanyl (Duragesic 50mcg/ Hr) 1 patch Q3DAYS TD 10/26/21 12:30 10/27/21 11:35 DC 10/26/21 12:36 Warfarin Sodium (Coumadin) 4 mg 1X WARF ONCE PO 10/26/21 16:00 10/26/21 16:01 DC 10/26/21 17:08 Warfarin Sodium (Coumadin) 4 mg 1X WARF ONCE PO 10/27/21 16:00 10/27/21 16:01 DC 10/27/21 16:27 Fentanyl (Duragesic 25mcg/ Hr) 1 patch Q3DAYS TD 10/27/21 12:00 10/27/21 12:14 Olanzapine (ZyPREXA ZYDIS) 2.5 mg PRN Q2HR PRN PO PSYCHOSIS 10/27/21 17:00 10/27/21 17:06 Current Medications Medications (Trade) Dose Ordered Sig/Corky Route PRN Reason Start Time Stop Time Status Last Admin Dose Admin Warfarin Sodium (Coumadin) 4 mg 1X WARF ONCE PO 10/27/21 16:00 10/27/21 16:01 DC 10/27/21 16:27 Fentanyl (Duragesic 25mcg/ Hr) 1 patch Q3DAYS TD 10/27/21 12:00 10/27/21 12:14 Olanzapine (ZyPREXA ZYDIS) 2.5 mg PRN Q2HR PRN PO PSYCHOSIS 10/27/21 17:00 10/27/21 17:06 I have reviewed the current psychotropics carefully including drug interactions. Risk benefit ratio favors no change other than as noted in my dictated progress note. 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
--- NOTE | 2021-10-27 23:48 | NUR ---
PT lying in bed with eyes closed when approached. Pt arouses easily, is confused, disorganized, and has difficulty following commands. Pt cooperative with assessment and compliant with medications administered crushed in pudding. No agitation or aggression noted thus far this shift.
[2021-10-28] MEDS: ACETAMINOPHEN 500 MG TABLET PO SCH (06:00)
[2021-10-28] MEDS ORDERED: DONE10TA61 PO (06:03)
[2021-10-28] MEDS ORDERED: METH85CR TP (06:05)
[2021-10-28] MEDS ORDERED: LIDO700A21 TP (06:08)
[2021-10-28 06:09] VITALS: BP 127/67
[2021-10-28] MEDS ORDERED: DULO20CA50 PO (06:09)
[2021-10-28] MEDS ORDERED: OLAN5TAB99 PO (06:11)
[2021-10-28 06:13] LABS: BASO % 0 % (0-3); EOS # 0.1 x10^3/uL (0.0-0.7); EOS % 1 % (0-3); HEMATOCRIT 38.3 % (39.0-53.0); HEMOGLOBIN 12.7 g/dL (13.0-17.5); LYMPH # 0.4 x10^3/uL (1.0-4.8); LYMPH % 7 % (24-48); MEAN CORPUSCULAR HEMOGLOBIN 31 pg (25-35); MEAN CORPUSCULAR HGB CONC 33 g/dL (31-37); MEAN CORPUSCULAR VOLUME 95 fL (79-100); MONO # 0.4 x10^3/uL (0.0-1.1); MONO % 7 % (0-9); NEUT # 5.9 x10^3uL (1.8-7.7); NEUT % 86 % (31-73); PLATELET COUNT 207 x10^3/uL (140-400); RED BLOOD COUNT 4.05 x10^6/uL (4.30-5.70); RED CELL DISTRIBUTION WIDTH 15.3 % (11.5-14.5); WHITE BLOOD COUNT 6.8 x10^3/uL (4.0-11.0)
[2021-10-28] MEDS ORDERED: FENT1PAT15 TP (06:13)
[2021-10-28 06:17] LABS: CALCIUM 8.7 mg/dL (8.5-10.1); CREATININE 0.9 mg/dL (0.7-1.3); GFR 81.8; POTASSIUM 4.6 mmol/L (3.5-5.1)
[2021-10-28] MEDS ORDERED: DIVA125C2 PO (06:17)
--- NOTE | 2021-10-28 06:17 | RAD ---
XR CHEST 1V 10/28/2021 5:25 AM INDICATION: Fever, cough COMPARISON: None available TECHNIQUE: Portable frontal view of the chest is provided. FINDINGS: The cardiomediastinal silhouette is within normal limits. Median sternotomy changes are present. Coar se perihilar and peripheral reticular interstitial changes are identified at the lung bases. There is right hilar prominence which may be secondary to vascular prominence versus lymphadenopathy. Cardiac valvular prosthesis identified. There are no significant pleural effusions. There is no pulmonary vascular congestion. No pneumothora x. No suspicious osseous abnormality. IMPRESSION: Bibasilar interstitial airspace disease favors interstitial pneumonitis of infectious/inflammatory et iology. Right hilar fullness may represent lymphadenopathy versus vascular prominence. Electronically signed by: Chandrika Lares MD (10/28/2021 6:15 AM) TAINA
[2021-10-28 06:23] LABS: ALBUMIN 3.3 g/dL (3.4-5.0); ALBUMIN/GLOBULIN RATIO 0.8 (1.0-1.7); TOTAL BILIRUBIN 0.9 mg/dL (0.2-1.0); TOTAL PROTEIN 7.2 g/dL (6.4-8.2)
--- NOTE | 2021-10-28 06:47 | NUR ---
Upon awakening this morning, pt was noted to have a wet cough. VS obtained, O2 sat low and pt febrile. Pt immediately placed on O2 @2.5L per nc, STAT CBC, CMP, and CXR ordered. Pt deep suctioned multiple times with thick, yellow sputum extracted; O2 sat 96% on O2 @ 2.5L per nc. Dr. Tinajero notified of labs and CXR results and order received to transfer pt to [address] [place] [address]. Pt daughter/DPOA notified of transfer @[id number].
--- NOTE | 2021-10-28 06:49 | PDOC ---
Exam Note: Shayne Note: This note is a late entry for 10/26/2021 covers elements not covered in my initial note. Subjective: The patient was seen individually on 10/26/2021, discussed and reviewed the chart with Vicki NEFF. The patient has been irritable, wandering at times, somewhat sedated and tramadol was held as a consequence of this and we will go ahead and stop his trazodone 25 mg b.i.d. due to the daytime sedation as well. Review of Systems: Positive for back pain. He is on a fentanyl patch. No CV, , pulmonary, eye, ENT system symptoms on review. Reliability poor. Mental Status Exam: The patient is oriented to himself. Insight and judgment, recent and remote memory, attention and concentration, fund of knowledge is poor consistent with his diagnosis. Laboratory Data: Reviewed. Impression: Major neurocognitive disorder, Alzheimer, vascular with delusion, depression behavioral disturbance. Anxiety disorder unspecified. Impulse control disorder unspecified. Plan: No change from initial note. Patients tramadol was held as a consequence of sedation and we will go ahead and stop his trazodone 25 mg b.i.d. due to the daytime sedation as well. Assessment: Vital Signs/I&O: Vital Signs Date Time Temp Pulse Resp B/P (MAP) Pulse Ox O2 Delivery O2 Flow Rate FiO2 10/28/21 06:16 96 2.5 10/28/21 06:09 99.4 100 20 127/67 (87) 10/27/21 06:23 Room Air I & O 0 10/27/21 10/27/21 10/28/21 15:00 23:00 07:00 Intake Total 360 ml 0 ml Balance 360 ml 0 ml Labs: Laboratory Tests Test 10/28/21 05:45 White Blood Count 6.8 x10^3/uL (4.0-11.0) Red Blood Count 4.05 x10^6/uL (4.30-5.70) L Hemoglobin 12.7 g/dL (13.0-17.5) L Hematocrit 38.3 % (39.0-53.0) L Mean Corpuscular Volume 95 fL (79-100) Mean Corpuscular Hemoglobin 31 pg (25-35) Mean Corpuscular Hemoglobin Concent 33 g/dL (31-37) Red Cell Distribution Width 15.3 % (11.5-14.5) H Platelet Count 207 x10^3/uL (140-400) Neutrophils (%) (Auto) 86 % (31-73) H Lymphocytes (%) (Auto) 7 % (24-48) L Monocytes (%) (Auto) 7 % (0-9) Eosinophils (%) (Auto) 1 % (0-3) Basophils (%) (Auto) 0 % (0-3) Neutrophils # (Auto) 5.9 x10^3uL (1.8-7.7) Lymphocytes # (Auto) 0.4 x10^3/uL (1.0-4.8) L Monocytes # (Auto) 0.4 x10^3/uL (0.0-1.1) Eosinophils # (Auto) 0.1 x10^3/uL (0.0-0.7) Basophils # (Auto) 0.0 x10^3/uL (0.0-0.2) Prothrombin Time 22.2 SEC (9.4-11.4) H Prothrombin Time INR 2.2 (0.9-1.1) H Sodium Level 142 mmol/L (136-145) Potassium Level 4.6 mmol/L (3.5-5.1) Chloride Level 107 mmol/L (98-107) Carbon Dioxide Level 30 mmol/L (21-32) Anion Gap 5 (6-14) L Blood Urea Nitrogen 25 mg/dL (8-26) Creatinine 0.9 mg/dL (0.7-1.3) Estimated GFR (Cockcroft-Gault) 81.8 BUN/Creatinine Ratio 28 (6-20) H Glucose Level 110 mg/dL (70-99) H Calcium Level 8.7 mg/dL (8.5-10.1) Total Bilirubin 0.9 mg/dL (0.2-1.0) Aspartate Amino Transferase (AST) 28 U/L (15-37) Alanine Aminotransferase (ALT) 28 U/L (16-63) Alkaline Phosphatase 82 U/L (46-116) Total Protein 7.2 g/dL (6.4-8.2) Albumin 3.3 g/dL (3.4-5.0) L Albumin/Globulin Ratio 0.8 (1.0-1.7) L Current Medications: Meds: Current Medications Medications (Trade) Dose Ordered Sig/Corky Route PRN Reason Start Time Stop Time Status Last Admin Dose Admin Warfarin Sodium (Coumadin) 4 mg 1X WARF ONCE PO 10/27/21 16:00 10/27/21 16:01 DC 10/27/21 16:27 Fentanyl (Duragesic 25mcg/ Hr) 1 patch Q3DAYS TD 10/27/21 12:00 10/27/21 12:14 Olanzapine (ZyPREXA ZYDIS) 2.5 mg PRN Q2HR PRN PO PSYCHOSIS 10/27/21 17:00 10/27/21 17:06 I have reviewed the current psychotropics carefully including drug interactions. Risk benefit ratio favors no change other than as noted in my dictated progress note. 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
--- NOTE | 2021-10-28 06:58 | NUR ---
Transition Record was faxed to follow-up provider with the following elements: discharge paperwork, medications Reason for admission, procedures, tests, principal diagnosis, pending studies, patient instructions, 28/03 contact information for unit, phone number to obtain pending test results, plan for follow-up care, physician follow-up, advanced directive information, and medication list with dose, duration and instructions. This information was included in the following documents: discharge paperwork History and physical, lab results, study results, progress notes, social work planning form, DC instruction form, patient visit summary, and medication reconciliation form. Date & time record faxed: 10/28/2021 @[phone] Record faxed to: [facility] Record discussed with/ report given to: Lanie NEFF
--- NOTE | 2021-10-28 07:01 | PDOC ---
Exam Note: Shayne Note: This note is a late entry for 10/27/2021 covers elements not covered in my initial note. Subjective: The patient was seen individually on 10/27/2021, discussed and reviewed the chart with Leela NEFF. Overall the patient remains confused, is quite sedated yesterday, trazodone 25 mg b.i.d. was stopped and sedation is a little better today. Sedation could also been due to the Fentanyl patch and I will defer this to Dr. Beltran/Dr. Tinajero. He remains confused, urinated on the floor today. I met with him in his room. He was lying in bed, not very verbally interactive, still somewhat sedated. Review of Systems: Chronic pain. No CV, , pulmonary, eye, ENT system symptoms on review. Reliability poor. Mental Status Exam: The patient is oriented to himself. Insight and judgment, recent and remote memory, attention and concentration, fund of knowledge is poor consistent with his diagnoses. Laboratory Data: Reviewed. Impression: Major neurocognitive disorder, Alzheimer, vascular with delusion, depression behavioral disturbance. Anxiety disorder unspecified. Impulse control disorder unspecified. Plan: No change from initial note. He is on Fentanyl patch and Lidocaine patch for his pain. We will add Zyprexa 2.5 mg q.2h. p.r.n. psychosis and agitation, max 10 mg in 4 hours. Continue gabapentin, Depakote, and Cymbalta unchanged. Assessment: Vital Signs/I&O: Vital Signs Date Time Temp Pulse Resp B/P (MAP) Pulse Ox O2 Delivery O2 Flow Rate FiO2 10/28/21 06:16 96 2.5 10/28/21 06:09 99.4 100 20 127/67 (87) 10/27/21 06:23 Room Air I & O 10/27/21 10/27/21 10/28/21 15:00 23:00 07:00 Intake Total 360 ml 0 ml Balance 360 ml 0 ml Labs: Laboratory Tests Test 10/28/21 05:45 White Blood Count 6.8 x10^3/uL (4.0-11.0) Red Blood Count 4.05 x10^6/uL (4.30-5.70) L Hemoglobin 12.7 g/dL (13.0-17.5) L Hematocrit 38.3 % (39.0-53.0) L Mean Corpuscular Volume 95 fL (79-100) Mean Corpuscular Hemoglobin 31 pg (25-35) Mean Corpuscular Hemoglobin Concent 33 g/dL (31-37) Red Cell Distribution Width 15.3 % (11.5-14.5) H Platelet Count 207 x10^3/uL (140-400) Neutrophils (%) (Auto) 86 % (31-73) H Lymphocytes (%) (Auto) 7 % (24-48) L Monocytes (%) (Auto) 7 % (0-9) Eosinophils (%) (Auto) 1 % (0-3) Basophils (%) (Auto) 0 % (0-3) Neutrophils # (Auto) 5.9 x10^3uL (1.8-7.7) Lymphocytes # (Auto) 0.4 x10^3/uL (1.0-4.8) L Monocytes # (Auto) 0.4 x10^3/uL (0.0-1.1) Eosinophils # (Auto) 0.1 x10^3/uL (0.0-0.7) Basophils # (Auto) 0.0 x10^3/uL (0.0-0.2) Prothrombin Time 22.2 SEC (9.4-11.4) H Prothrombin Time INR 2.2 (0.9-1.1) H Sodium Level 142 mmol/L (136-145) Potassium Level 4.6 mmol/L (3.5-5.1) Chloride Level 107 mmol/L (98-107) Carbon Dioxide Level 30 mmol/L (21-32) Anion Gap 5 (6-14) L Blood Urea Nitrogen 25 mg/dL (8-26) Creatinine 0.9 mg/dL (0.7-1.3) Estimated GFR (Cockcroft-Gault) 81.8 BUN/Creatinine Ratio 28 (6-20) H Glucose Level 110 mg/dL (70-99) H Calcium Level 8.7 mg/dL (8.5-10.1) Total Bilirubin 0.9 mg/dL (0.2-1.0) Aspartate Amino Transferase (AST) 28 U/L (15-37) Alanine Aminotransferase (ALT) 28 U/L (16-63) Alkaline Phosphatase 82 U/L (46-116) Total Protein 7.2 g/dL (6.4-8.2) Albumin 3.3 g/dL (3.4-5.0) L Albumin/Globulin Ratio 0.8 (1.0-1.7) L Current Medications: Meds: Current Medications Medications (Trade) Dose Ordered Sig/Corky Route PRN Reason Start Time Stop Time Status Last Admin Dose Admin Warfarin Sodium (Coumadin) 4 mg 1X WARF ONCE PO 10/27/21 16:00 10/27/21 16:01 DC 10/27/21 16:27 Fentanyl (Duragesic 25mcg/ Hr) 1 patch Q3DAYS TD 10/27/21 12:00 10/28/21 06:56 DC 10/27/21 12:14 Olanzapine (ZyPREXA ZYDIS) 2.5 mg PRN Q2HR PRN PO PSYCHOSIS 10/27/21 17:00 10/28/21 06:56 DC 10/27/21 17:06 I have reviewed the current psychotropics carefully including drug interactions. Risk benefit ratio favors no change other than as noted in my dictated progress note. Diagnosis: Problems: (1) Impulse control disorder, unspecified (2) Anxiety disorder, unspecified (3) Dementia, vascular, with depression (4) Dementia, vascular, with delusions (5) Dementia in Alzheimer's disease with delusions (6) Major neurocognitive disorder (7) Dementia in Alzheimer's disease with early onset with behavioral disturbance CHADWICK ARAGON MD Oct 28, 2021 07:01
--- NOTE | 2021-10-28 21:23 | PDOC ---
Exam Note: Shayne Note: Please also refer to the separate dictated note~for this date of service dictated separately.~Patient seen individually. Discussed the patient with Nursing staff reviewed the chart.~Reviewed interim history and current functioning. Reviewed vital signs,~Labs/ Radiology~and current medications noted below. Continue current treatment with the changes noted in the dictated addendum note Assessment: Vital Signs/I&O: Vital Signs Date Time Temp Pulse Resp B/P (MAP) Pulse Ox O2 Delivery O2 Flow Rate FiO2 10/28/21 06:16 96 2.5 10/28/21 06:09 99.4 100 20 127/67 (87) 10/27/21 06:23 Room Air I & O 10/27/21 10/27/21 10/28/21 15:00 23:00 07:00 Intake Total 360 ml 0 ml Balance 360 ml 0 ml Labs: Laboratory Tests Test 10/28/21 05:45 White Blood Count 6.8 x10^3/uL (4.0-11.0) Red Blood Count 4.05 x10^6/uL (4.30-5.70) L Hemoglobin 12.7 g/dL (13.0-17.5) L Hematocrit 38.3 % (39.0-53.0) L Mean Corpuscular Volume 95 fL (79-100) Mean Corpuscular Hemoglobin 31 pg (25-35) Mean Corpuscular Hemoglobin Concent 33 g/dL (31-37) Red Cell Distribution Width 15.3 % (11.5-14.5) H Platelet Count 207 x10^3/uL (140-400) Neutrophils (%) (Auto) 86 % (31-73) H Lymphocytes (%) (Auto) 7 % (24-48) L Monocytes (%) (Auto) 7 % (0-9) Eosinophils (%) (Auto) 1 % (0-3) Basophils (%) (Auto) 0 % (0-3) Neutrophils # (Auto) 5.9 x10^3uL (1.8-7.7) Lymphocytes # (Auto) 0.4 x10^3/uL (1.0-4.8) L Monocytes # (Auto) 0.4 x10^3/uL (0.0-1.1) Eosinophils # (Auto) 0.1 x10^3/uL (0.0-0.7) Basophils # (Auto) 0.0 x10^3/uL (0.0-0.2) Prothrombin Time 22.2 SEC (9.4-11.4) H Prothrombin Time INR 2.2 (0.9-1.1) H Sodium Level 142 mmol/L (136-145) Potassium Level 4.6 mmol/L (3.5-5.1) Chloride Level 107 mmol/L (98-107) Carbon Dioxide Level 30 mmol/L (21-32) Anion Gap 5 (6-14) L Blood Urea Nitrogen 25 mg/dL (8-26) Creatinine 0.9 mg/dL (0.7-1.3) Estimated GFR (Cockcroft-Gault) 81.8 BUN/Creatinine Ratio 28 (6-20) H Glucose Level 110 mg/dL (70-99) H Calcium Level 8.7 mg/dL (8.5-10.1) Total Bilirubin 0.9 mg/dL (0.2-1.0) Aspartate Amino Transferase (AST) 28 U/L (15-37) Alanine Aminotransferase (ALT) 28 U/L (16-63) Alkaline Phosphatase 82 U/L (46-116) Total Protein 7.2 g/dL (6.4-8.2) Albumin 3.3 g/dL (3.4-5.0) L Albumin/Globulin Ratio 0.8 (1.0-1.7) L Current Medications: Meds: Laboratory Tests Test 10/28/21 05:45 White Blood Count 6.8 x10^3/uL Red Blood Count 4.05 x10^6/uL Hemoglobin 12.7 g/dL Hematocrit 38.3 % Mean Corpuscular Volume 95 fL Mean Corpuscular Hemoglobin 31 pg Mean Corpuscular Hemoglobin Concent 33 g/dL Red Cell Distribution Width 15.3 % Platelet Count 207 x10^3/uL Neutrophils (%) (Auto) 86 % Lymphocytes (%) (Auto) 7 % Monocytes (%) (Auto) 7 % Eosinophils (%) (Auto) 1 % Basophils (%) (Auto) 0 % Neutrophils # (Auto) 5.9 x10^3uL Lymphocytes # (Auto) 0.4 x10^3/uL Monocytes # (Auto) 0.4 x10^3/uL Eosinophils # (Auto) 0.1 x10^3/uL Basophils # (Auto) 0.0 x10^3/uL Prothrombin Time 22.2 SEC Prothromb Time International Ratio 2.2 Sodium Level 142 mmol/L Potassium Level 4.6 mmol/L Chloride Level 107 mmol/L Carbon Dioxide Level 30 mmol/L Anion Gap 5 Blood Urea Nitrogen 25 mg/dL Creatinine 0.9 mg/dL Estimated GFR (Cockcroft-Gault) 81.8 BUN/Creatinine Ratio 28 Glucose Level 110 mg/dL Calcium Level 8.7 mg/dL Total Bilirubin 0.9 mg/dL Aspartate Amino Transf (AST/SGOT) 28 U/L Alanine Aminotransferase (ALT/SGPT) 28 U/L Alkaline Phosphatase 82 U/L Total Protein 7.2 g/dL Albumin 3.3 g/dL Albumin/Globulin Ratio 0.8 Current Medications Medications (Trade) Dose Ordered Sig/Corky Route PRN Reason Start Time Stop Time Status Last Admin Dose Admin Multi-Ingredient Ointment (Analgesic [place]) 1 sam PRN QID PRN TP MUSCLE PAIN 10/20/21 16:30 10/28/21 06:56 DC Al Hydroxide/Mg Hydroxide (Mylanta Plus Xs) 15 ml PRN AFTMEALHC PRN PO DYSPEPSIA 10/20/21 16:30 Cancel Acetaminophen (Tylenol) 650 mg PRN Q4HRS PRN PO MILD PAIN / TEMP > 100.3'F 10/20/21 17:15 10/28/21 06:56 DC Acetaminophen (Tylenol) 500 mg Q8HRS PO 10/20/21 22:00 10/28/21 06:56 DC 10/27/21 20:23 Aspirin (Aspirin Enteric Coated) 81 mg DAILY PO 10/21/21 09:00 10/20/21 18:50 DC Calcium Carbonate/ Glycine (Tums) 500 mg PRN Q4HRS PRN PO HEARTBURN / GAS 10/20/21 17:30 10/28/21 06:56 DC Donepezil HCl (Aricept) 10 mg QHS PO 10/20/21 21:00 10/21/21 16:23 DC 10/20/21 20:10 Gabapentin (Neurontin) 300 mg TID PO 10/20/21 21:00 10/26/21 07:22 DC 10/25/21 19:51 Loperamide HCl (Imodium) 4 mg PRN Q4HRS PRN PO DIARRHEA 10/20/21 17:15 10/28/21 06:56 DC Al Hydroxide/Mg Hydroxide (Mylanta Plus Xs) 30 ml PRN Q4HRS PRN PO indigestion & diarrhea 10/20/21 17:15 10/28/21 06:56 DC Magnesium Hydroxide (Milk Of Magnesia) 2,400 mg PRN Q24HRS PRN PO CONSTIPATION 10/20/21 17:15 10/28/21 06:56 DC 10/24/21 19:53 Memantine (Namenda) 10 mg BID PO 10/20/21 21:00 10/21/21 16:23 DC 10/21/21 07:46 Sertraline HCl (Zoloft) 50 mg QHS PO 10/20/21 21:00 10/22/21 10:23 DC 10/21/21 19:41 Tramadol HCl (Ultram) 50 mg TID PO 10/20/21 21:00 10/28/21 06:56 DC 10/27/21 20:23 Trazodone HCl (Desyrel) 25 mg BID PO 10/20/21 21:00 10/26/21 20:21 DC 10/26/21 08:24 Trazodone HCl (Desyrel) 25 mg PRN Q8HRS PRN PO anxiety 10/20/21 17:15 10/28/21 06:56 DC 10/23/21 15:24 Artificial Tears (Artificial Tears) 2 drop PRN Q4HRS PRN OU DRY EYE 10/20/21 17:30 10/28/21 06:56 DC Multivitamins/ Calcium (Thera-M Plus) 1 tab DAILY PO 10/21/21 09:00 10/28/21 06:56 DC 10/27/21 08:10 Non-Formulary Medication (Warfarin Sodium ) 6 mg AFTRNOON PO 10/21/21 13:00 UNV Aspirin (Aspirin Chewable) 81 mg DAILYWBKFT PO 10/21/21 08:00 10/28/21 06:56 DC 10/27/21 08:10 Lidocaine (Lidoderm) 1 patch PRN DAILY TD 10/20/21 19:00 10/22/21 14:58 DC Miscellaneous (Lidoderm Patch Removal) 1 ea QHS 10/20/21 21:00 10/28/21 06:56 DC 10/27/21 20:23 Info (Anti-Coagulation Monitoring By Pharmacy) 1 each PRN DAILY PRN MC SEE COMMENTS 10/20/21 19:15 10/28/21 06:56 DC Warfarin Sodium (Coumadin Per Pharmacy) 1 each PRN DAILY PRN MC SEE COMMENTS 10/20/21 19:30 10/28/21 06:56 DC 10/27/21 08:00 Warfarin Sodium (Coumadin) 6 mg 1X WARF ONCE PO 10/20/21 21:30 10/20/21 21:31 DC 10/20/21 21:30 Warfarin Sodium (Coumadin) 6 mg 1X WARF ONCE PO 10/21/21 16:00 10/21/21 16:01 DC 10/21/21 15:49 Divalproex Sodium (Depakote Sprinkles) 125 mg 0900,1700 PO 10/21/21 17:00 10/28/21 06:56 DC 10/27/21 16:28 Warfarin Sodium (Coumadin) 4 mg 1X WARF ONCE PO 10/22/21 16:00 10/22/21 16:01 DC 10/22/21 17:05 Duloxetine HCl (Cymbalta) 20 mg DAILY PO 10/23/21 09:00 10/25/21 10:00 DC 10/25/21 08:45 Duloxetine HCl (Cymbalta) 40 mg DAILY PO 10/26/21 09:00 10/28/21 06:56 DC 10/27/21 08:10 Lidocaine (Lidoderm) 1 patch DAILY TD 10/23/21 09:00 10/28/21 06:56 DC 10/27/21 08:11 Warfarin Sodium (Coumadin - No Dose Today) 1 each 1X WARF ONCE MC 10/23/21 16:00 10/23/21 16:01 DC 10/23/21 16:00 Warfarin Sodium (Coumadin) 4 mg 1X WARF ONCE PO 10/24/21 16:00 10/24/21 16:01 DC 10/24/21 17:46 Warfarin Sodium (Coumadin) 4 mg 1X WARF ONCE PO 10/25/21 16:00 10/25/21 16:01 DC 10/25/21 16:13 Gabapentin (Neurontin Oral Soln) 300 mg TID PO 10/26/21 09:00 10/28/21 06:56 DC 10/27/21 20:22 Fentanyl (Duragesic 50mcg/ Hr) 1 patch Q3DAYS TD 10/26/21 12:30 10/27/21 11:35 DC 10/26/21 12:36 Warfarin Sodium (Coumadin) 4 mg 1X WARF ONCE PO 10/26/21 16:00 10/26/21 16:01 DC 10/26/21 17:08 Warfarin Sodium (Coumadin) 4 mg 1X WARF ONCE PO 10/27/21 16:00 10/27/21 16:01 DC 10/27/21 16:27 Fentanyl (Duragesic 25mcg/ Hr) 1 patch Q3DAYS TD 10/27/21 12:00 10/28/21 06:56 DC 10/27/21 12:14 Olanzapine (ZyPREXA ZYDIS) 2.5 mg PRN Q2HR PRN PO PSYCHOSIS 10/27/21 17:00 10/28/21 06:56 DC 10/27/21 17:06 I have reviewed the current psychotropics carefully including drug interactions. Risk benefit ratio favors no change other than as noted in my dictated progress note. Diagnosis: Problems: (1) Impulse control disorder, unspecified (2) Anxiety disorder, unspecified (3) Dementia, vascular, with depression (4) Dementia, vascular, with delusions (5) Dementia in Alzheimer's disease with delusions (6) Major neurocognitive disorder (7) Dementia in Alzheimer's disease with early onset with behavioral disturbance CHADWICK ARAGON MD Oct 28, 2021 21:23
--- NOTE | 2021-10-29 21:32 | DS ---
DATE OF DISCHARGE: 10/28/2021 DISCHARGE SUMMARY/PSYCHIATRIC PROGRESS NOTE This is a late entry, date of service 10/28, covers elements not covered in my initial note, 10/28. REASON FOR ADMISSION: Please refer to the admission history for details. Briefly, the patient is a 75-year-old male, referred to us from [facility] on account of increased confusion within the context of his major neurocognitive disorder, Alzheimer, vascular with delusion; depression; behavioral disturbance. He is anxious, restless, pacing, aggressive, tearful, having altercations with his peers. Appetite was poor. He was losing weight. He had failed outpatient psychiatric interventions. Behaviors deemed unmanageable at the facility, resulting in this referral. SIGNIFICANT FINDINGS AND CLINICAL COURSE: Following admission, the patient was seen daily individually by myself from a psychiatric standpoint; medical followup, Dr. Tinajero/Dr. Beltran. The patient was confused, somewhat aggressive at admission. Adjustments were made in his psychotropics. He was on trazodone 25 mg b.i.d. and at one point, he seemed oversedated and this was discontinued. He remained on gabapentin 300 mg t.i.d. Depakote was initiated for behavioral dyscontrol and Cymbalta for his depressive mood and anxiety symptoms initiated at 20 mg a day for 3 days, then 40 mg a day. He was gradually showing improvement in his behaviors and dyscontrol, but remained confused, but on 10/28, he appeared to develop pneumonia and was transferred to the medical surgical floor per Dr. Tinajero for stabilization. REVIEW OF SYSTEMS: Prior to discharge, no CV, , pulmonary, eye, ENT system symptoms on review. He is quite sedated. MENTAL STATUS EXAMINATION: Oriented to himself. Insight, judgment, recent and remote memory, attention, concentration, fund of knowledge poor consistent with his diagnoses. FINAL DIAGNOSES: Major neurocognitive disorder, Alzheimer, vascular with delusion; depression; behavioral disturbance; anxiety disorder, unspecified; impulse control disorder, unspecified. Rest as above. DISCHARGE MEDICATIONS: Please refer to the [facility]. Psychiatric and medical followup on medical/surgical floor per Dr. Tinajero. Time for discharge day management greater than 30 minutes. LEELA/GREGORY DR: LEELA/felipe TID: [id number]
== END 2021-10-28 06:56 | disposition short-term general hospital (02) | DRG 56 ==
LOC: GEROPSY 15:55
PROVIDERS: ADMIT Psychiatry & Neurology Psychiatry; ATTEND Psychiatry & Neurology Psychiatry
DX: G30.9 Alzheimer's disease, unspecified (principal); F01.51 Vascular dementia, unspecified severity, with behavioral disturbance; J18.9 Pneumonia, unspecified organism; F02.81 Dementia in other diseases classified elsewhere, unspecified severity, with behavioral disturbance; E78.5 Hyperlipidemia, unspecified; F32.A Depression, unspecified; F41.9 Anxiety disorder, unspecified; F63.9 Impulse disorder, unspecified; Z66 Do not resuscitate; I48.0 Paroxysmal atrial fibrillation; M54.50 Low back pain, unspecified; M19.90 Unspecified osteoarthritis, unspecified site; Z79.01 Long term (current) use of anticoagulants; Z79.899 Other long term (current) drug therapy; Z86.16 Personal history of COVID-19; Z95.2 Presence of prosthetic heart valve; Z98.52 Vasectomy status; Z88.8 Allergy status to other drugs, medicaments and biological substances
CPT/HCPCS: 36415; 71045; 80053; 80061; 80164; 81001; 82306; 82607; 83036; 83540; 83550; 83735; 84436; 84443; 84480; 85025; 85379; 85610; 86592; 93005

== ENCOUNTER 2021-10-28 06:58 | Inpatient (IN) | payer MEDICARE, OTHER ==
[~2021-10-28] VITALS: Ht 193 cm; Wt 83.1 kg
[~2021-10-28 06:58] MED LIST: ACET325T21 PO; ACET500T68 PO; ASPI-889 PO; CALC500T31 PO; CARB1DRO12 OP; DIVA125C2 PO; DONE10TA61 PO; DULO20CA50 PO; FENT1PAT15 TP; GABA-586 PO; LIDO700A21 TP; LOPE-101 PO; MAG355OR12 PO; MAGN400O7 PO; MEMA10TA PO; METH85CR TP; MULT-245 PO; OLAN5TAB99 PO; SERT50TA PO; TRAM50TA PO; TRAZ-120 PO; WARF6TAB47 PO
[2021-10-28 07:00] VITALS: BP 142/66
[2021-10-28] MEDS ORDERED: IV NORMAL SALINE 1,000ML 1,000 ML IV ONE (08:00)
[2021-10-28] MEDS ORDERED: VANCOMYCIN PER PHARMACY MC PRN (08:00)
[2021-10-28] MEDS ORDERED: CALCIUM CARBONATE 500 MG TABLET PO PRN (08:15)
[2021-10-28] MEDS ORDERED: LIDOCAINE (700MG/PATCH) PATCH. TP PRN (08:15)
[2021-10-28] MEDS ORDERED: MAGNESIUM HYDROXIDE 2,400 MG/30 ML ORAL.SUSP. PO PRN (08:15)
[2021-10-28] MEDS ORDERED: METHYL SALICYLATE TP PRN (08:15)
[2021-10-28] MEDS ORDERED: MENTHOL TP PRN (08:15)
[2021-10-28] MEDS ORDERED: LOPERAMIDE 2 MG CAPSULE PO PRN (08:15)
[2021-10-28] MEDS ORDERED: ACETAMINOPHEN 325 MG TABLET PO PRN (08:15)
[2021-10-28] MEDS ORDERED: MAG HYDROX/AL HYDROX/SIMETH 30 ML ORAL.SUSP PO PRN (08:15)
[2021-10-28] MEDS: DULoxetine HCL 20 MG CAPSULE.DR PO SCH (09:00)
[2021-10-28] MEDS: GABAPENTIN 300 MG CAPSULE. PO SCH ×3 (09:00→20:50)
[2021-10-28] MEDS: ASPIRIN ENTERIC COATED 81 MG TABLET.DR. PO SCH (09:00)
[2021-10-28] MEDS ORDERED: fentaNYL 25MCG/HR 1 PATCH PATCH TD SCH (09:00)
[2021-10-28] MEDS ORDERED: METHYL SALICYLATE/MENTHOL TOPICAL OINTMENT 57GM TUBE. TP PRN (09:00)
[2021-10-28] MEDS ORDERED: VANCOMYCIN 2 GM in IV NORMAL SALINE 500ML 500 ML IV ONE (09:00)
[2021-10-28] MEDS: MULTIVITAMIN with MINERAL TABLET. PO SCH (09:00)
[2021-10-28] MEDS ORDERED: POLYVINYL ALCOHOL/POVIDONE/PF OPHTH SOLUTION DROPERETTE. OU PRN (09:00)
[2021-10-28 09:13] LABS: BGAS PH 7.43 (7.35-7.46)
[2021-10-28] MEDS: PIPERACILLIN/TAZOBACTAM 3.375 GM in IV NORMAL SALINE 50ML 50 ML IV SCH ×2 (11:08→18:38)
[2021-10-28] MEDS: traMADol 50 MG TABLET PO SCH ×3 (11:11→20:50)
[2021-10-28 11:51] VITALS: BP 129/72
[2021-10-28] MEDS ORDERED: WARFARIN SODIUM 6 MG PO SCH (13:00)
[2021-10-28] MEDS: ACETAMINOPHEN 500 MG TABLET PO SCH ×2 (14:00→22:00)
--- NOTE | 2021-10-28 15:17 | HP ---
DATE OF SERVICE: 10/28/2021 ADMIT DATE: 10/28/2021 HISTORY OF PRESENT ILLNESS: The patient is a 75-year-old male patient who was [facility], as he was referred to this facility from [facility], with a diagnosis of dementia with behavioral disturbances. The patient has been increasingly confused, angry, aggressive, oriented just to himself, paranoid, disruptive at the nursing facility, behaviors that have been unmanageable, had failed outpatient psychiatric intervention and therefore, he was admitted for inpatient psychiatric stabilization. Apparently, the patient this morning was noted to have a weak cough. Vital signs obtained, showed oxygen saturation was low. The patient was febrile according to nursing staff. He was immediately placed on 2.5 liters of oxygen by nasal cannula. He has a stat CBC, CMP, and chest x-ray ordered. The patient was deeply suctioned multiple times with thick yellow sputum extracted. His oxygen saturation has risen to 96% on 2.5 liters of oxygen by nasal cannula and given that he was hypoxic, febrile and a chest x-ray showed that he has bibasilar interstitial airspace disease, favors interstitial pneumonitis of infectious inflammatory etiology, right hilar fullness may represent lymphadenopathy versus vascular prominence and therefore, the patient was transferred to [address] [place] [address] with diagnosis of acute hypoxic respiratory failure, questionable aspiration pneumonia, and was started on IV antibiotic in the form of Zosyn and vancomycin. He was started also on IV fluid. The patient himself is demented and does not really give any useful information. PAST MEDICAL HISTORY: Significant for, apparently he has ascending aortic aneurysm, status post repair. He has also chronic low back pain, chronic gout, hyperlipidemia, paroxysmal atrial fibrillation, aneurysm of the ascending aorta, lumbosacral spondylosis, status post hernia repair, status post vasectomy and ankle surgery. He seems also to have mitral valve replacement. ALLERGIES: HE IS ALLERGIC TO STATIN. MEDICATIONS: He is currently on the following medications: He is on olanzapine 2.5 mg every 2 hours, warfarin 4 mg once a day, fentanyl 25 mcg patch topically every 72 hours. He is on gabapentin 300 mg 3 times a day, duloxetine 40 mg once a day. Lidoderm patch apply topically on for 12 hours, off for 12 hours. He is on divalproex 125 mg twice a day, multivitamin with calcium 1 tablet once a day, aspirin 81 mg once a day, acetaminophen 500 mg every 8 hours. He is also on tramadol 50 mg 3 times a day, artificial tears 2 drops to both eyes every 4 hours, calcium carbonate 500 mg every 4 hours, trazodone 25 mg every 8 hours, magnesium hydroxide for milk of magnesia 30 mL p.o. daily p.r.n. for constipation. He is also on Mylanta Plus 30 mL every 4 hours, loperamide 4 mg every 4 hours, acetaminophen 650 mg every 4 hours as needed. REVIEW OF SYSTEMS: Unobtainable. FAMILY HISTORY: Noncontributory. SOCIAL HISTORY: He is apparently a resident at [facility]. He apparently does not smoke, drink alcohol, or use any recreational drugs. He is retired from the and was teaching at the ____. PHYSICAL EXAMINATION: GENERAL: On arrival to the [address] [place] [address], he looked well and was clearly in no apparent respiratory distress. He was pale, but no jaundice and no cyanosis. No lymphadenopathy, no thyromegaly, no jugular venous distention. No limb edema. VITAL SIGNS: His heart rate was 89, blood pressure was 142/66, temperature 97.9, respiratory rate 20, and oxygen saturation was 96% on 2 liters of oxygen. HEAD, EYES, EARS, NOSE, AND THROAT: Normocephalic, atraumatic. NECK: Supple. HEART: Showed normal first and second heart sound. No gallop, rub or murmur. CHEST: Shows central trachea, equal bilateral chest expansion, air entry, vesicular breath sounds. I could not really appreciate any crepitation or rhonchi anteriorly. ABDOMEN: Scaphoid, soft, nontender. NEUROLOGIC: He is demented without any obvious lateralizing sign. He is somewhat lethargic and apparently was under the influence of fentanyl. This was the fentanyl patch that was removed. LABORATORY DATA: Lab work done at the [facility] early this morning showed a white cell count of 6800, hemoglobin 13, hematocrit 39, MCV 95 and platelet count 207,000. His chemistry showed a serum sodium 142, potassium 4.6, chloride 107, bicarbonate 30, anion gap of 5, BUN 25, creatinine 0.9. Estimated GFR was 82 mL per minute. His glucose 110, calcium was 8.7. Total bilirubin, AST, ALT, alkaline phosphatase were normal. Total protein 7.2, albumin was 3.3. ASSESSMENT AND PLAN: In summary, this is a 75-year-old with advanced dementia, who was admitted, was transferred to [address] [place] [address] with acute hypoxic respiratory failure and pneumonia, likely aspiration. He was started on IV Zosyn and vancomycin as well as IV fluid. We will reconcile all his medications and obviously await the results of the culture and sensitivity to adjust his antibiotic accordingly. OSCAR/CHAZ/JERRY DR: Satish TID: [id number]
[2021-10-28 15:20] VITALS: BP 135/75
[2021-10-28] MEDS ORDERED: WARFARIN 4 MG TABLET. PO ONE (16:00)
[2021-10-28 20:34] VITALS: BP 94/54
[2021-10-28] MEDS: VANCOMYCIN 1.25 GM in IV NORMAL SALINE 250ML 250 ML IV SCH (22:05)
[2021-10-28 23:58] VITALS: BP 114/65
[2021-10-29] MEDS: traZODone 50 MG TABLET. PO PRN ×2 (04:12→20:04)
[2021-10-29] MEDS: ACETAMINOPHEN 500 MG TABLET PO SCH ×3 (04:13→22:00)
[2021-10-29] MEDS: PIPERACILLIN/TAZOBACTAM 3.375 GM in IV NORMAL SALINE 50ML 50 ML IV SCH ×5 (05:33→23:45)
[2021-10-29 05:44] VITALS: BP 114/68
[2021-10-29 06:08] LABS: HEMATOCRIT 32.6 % (39.0-53.0); HEMOGLOBIN 10.8 g/dL (13.0-17.5); RED BLOOD COUNT 3.43 x10^6/uL (4.30-5.70); RED CELL DISTRIBUTION WIDTH 14.9 % (11.5-14.5)
[2021-10-29 06:22] LABS: ALBUMIN 2.5 g/dL (3.4-5.0); ALBUMIN/GLOBULIN RATIO 0.7 (1.0-1.7); CREATININE 1.1 mg/dL (0.7-1.3); GFR 64.9; POTASSIUM 3.3 mmol/L (3.5-5.1); TOTAL BILIRUBIN 0.8 mg/dL (0.2-1.0); TOTAL PROTEIN 5.9 g/dL (6.4-8.2)
[2021-10-29] MEDS ORDERED: POTASSIUM CHLORIDE 20 MEQ TABLET.ER. PO ONE (09:45)
[2021-10-29] MEDS: GABAPENTIN 300 MG CAPSULE. PO SCH ×3 (10:27→20:04)
[2021-10-29] MEDS: MULTIVITAMIN with MINERAL TABLET. PO SCH (10:27)
[2021-10-29] MEDS: DULoxetine HCL 20 MG CAPSULE.DR PO SCH (10:27)
[2021-10-29] MEDS: traMADol 50 MG TABLET PO SCH ×3 (10:28→20:04)
[2021-10-29] MEDS: ASPIRIN ENTERIC COATED 81 MG TABLET.DR. PO SCH (10:28)
[2021-10-29] MEDS: VANCOMYCIN 1.25 GM in IV NORMAL SALINE 250ML 250 ML IV SCH ×2 (10:31→21:40)
[2021-10-29 11:11] VITALS: BP 139/71
[2021-10-29] MEDS: POTASSIUM CL 20MEQ IN D5W 1,000 ML IV SCH (14:30)
[2021-10-29 14:58] VITALS: BP 120/65
[2021-10-29] MEDS ORDERED: WARFARIN 4 MG TABLET. PO ONE (16:00)
[2021-10-29 19:00] VITALS: BP 129/71
--- NOTE | 2021-10-29 20:29 | PN ---
DATE: 10/29/2021 SUBJECTIVE: The patient is resting, slightly propped up in bed, no apparent distress, sleepy, but arousable. He is very confused, attempting to mouth some words, but difficult to understand; however, afebrile, hemodynamically stable. He is maintaining his oxygen saturation at 94%. He is ambulating with standby assist. PHYSICAL EXAMINATION: GENERAL: When I examined him, he was somewhat pale, somewhat cachectic, but not jaundiced, cyanosed, no lymphadenopathy, no thyromegaly, no jugular venous distention. No limb edema. VITAL SIGNS: Her heart rate was 72, blood pressure is 139/71, temperature 97.2, respiratory rate was 18 and oxygen saturation was 94%. The rest of clinical examination is stable, has not really changed. His intake and output are incompletely recorded. LABORATORY DATA: This morning showed a white cell count is 4000, hemoglobin 11, hematocrit 33, MCV 95 and platelet count of 177,000. Sodium was high at 149, potassium 3.3, chloride 114, bicarbonate was 27, anion gap of 8, BUN 24, creatinine 1.1. Estimated GFR was 65 mL per minute. His glucose 110. Lactic acid is 1.1, calcium was 8. Total bilirubin, AST, ALT, alkaline phosphatase were normal. Total protein 5.9, albumin was 2.5. His prothrombin time and INR are within therapeutic range. ASSESSMENT: 1. Acute hypoxic respiratory failure. 2. Aspiration pneumonia. 3. Hypernatremia. 4. The patient has multiple other medical problems including hyperlipidemia, paroxysmal atrial fibrillation, ascending aortic aneurysm, questionable mitral valve replacement and aneurysm of the ascending aorta. PLAN: My plan is to start him on D5W with 20 mEq of potassium chloride, and will repeat his lab work again and if his blood culture continued to be negative, we will discontinue the IV antibiotics, switch him to oral Augmentin. He can be discharged back to [facility]. ANNALISE DR: Satish TID: [id number]
[2021-10-29 21:50] LABS: VANC TR 26.7 mcg/mL (10.0-20.0)
[2021-10-30] MEDS: PIPERACILLIN/TAZOBACTAM 3.375 GM in IV NORMAL SALINE 50ML 50 ML IV SCH ×2 (06:00→17:44)
[2021-10-30] MEDS: ACETAMINOPHEN 500 MG TABLET PO SCH ×2 (06:00→14:12)
[2021-10-30 06:03] VITALS: BP 154/75
[2021-10-30 06:08] LABS: CALCIUM 8.3 mg/dL (8.5-10.1); CREATININE 1.4 mg/dL (0.7-1.3); GFR 49.1; POTASSIUM 3.6 mmol/L (3.5-5.1)
[2021-10-30] MEDS: ASPIRIN ENTERIC COATED 81 MG TABLET.DR. PO SCH (08:44)
[2021-10-30] MEDS: DULoxetine HCL 20 MG CAPSULE.DR PO SCH (08:44)
[2021-10-30] MEDS: GABAPENTIN 300 MG CAPSULE. PO SCH ×2 (08:44→14:12)
[2021-10-30] MEDS: MULTIVITAMIN with MINERAL TABLET. PO SCH (08:45)
[2021-10-30] MEDS: traMADol 50 MG TABLET PO SCH ×3 (08:45→21:00)
[2021-10-30 11:35] VITALS: BP 109/64
[2021-10-30 12:20] LABS: CREATININE 1.4 mg/dL (0.7-1.3); GFR 49.1; POTASSIUM 3.8 mmol/L (3.5-5.1)
[2021-10-30] MEDS: POTASSIUM CL 20MEQ IN D5W 1,000 ML IV SCH (14:04)
[2021-10-30] MEDS: IV DEXTROSE 5% 1,000 ML IV SCH ×2 (14:49→21:25)
[2021-10-30 15:17] VITALS: BP 123/70
[2021-10-30] MEDS ORDERED: WARFARIN 5 MG TABLET. PO ONE (16:00)
[2021-10-30] MEDS ORDERED: ACETAMINOPHEN 650 MG/20.3 ML SOLUTION. PO PRN (17:15)
[2021-10-30] MEDS ORDERED: OLANZapine 2.5 MG TABLET PO PRN (18:15)
[2021-10-30 19:40] VITALS: BP 97/63
--- NOTE | 2021-10-30 20:33 | PN ---
DATE: 10/30/2021 SUBJECTIVE: The patient continued to be restless, agitated; however, is afebrile, hemodynamically stable. Unfortunately, he continued to be dehydrated and his kidney function was getting worsened. His sodium has risen to 150, creatinine went up to 1.4. His blood cultures are so far negative, so we discontinued his IV Zosyn and vancomycin and will switch him to oral Augmentin 500/125 twice a day. Meanwhile, we will continue with D5W at 150 mL to correct his electrolyte. We did scan his bladder and apparently he has managed to empty his bladder completely. No evidence of retention. PHYSICAL EXAMINATION: GENERAL: When I examined him today, he looked well and was clearly in no apparent respiratory distress, pale, but not jaundiced or cyanosed, no lymphadenopathy, no thyromegaly, no jugular venous distention. No limb edema. VITAL SIGNS: His heart rate was 57, blood pressure was 109/64, temperature 97.8, respiratory rate was 14 and oxygen saturation was 94% on room air. HEAD, EYES, EARS, NOSE, AND THROAT: Normocephalic, atraumatic. NECK: Supple. HEART: Showed normal first and second heart sounds. No gallop, rub or murmur. CHEST: Clear to auscultation, no crepitation or rhonchi. ABDOMEN: Distended, soft, nontender. NEUROLOGIC: He is demented without any obvious lateralizing sign. He managed to ambulate with assistance. His intake over the last 24 hours was 1500, no output was recorded. LABORATORY DATA: This morning showed that his serum sodium went up to 150, potassium 3.8, chloride 117, bicarbonate 26, anion gap of 7, BUN 22, creatinine 1.4. Estimated GFR was 49 mL per minute. His glucose was 116, calcium was 8. ASSESSMENT: 1. Acute hypoxic respiratory failure, resolved. 2. Aspiration pneumonia. 3. Hypernatremia. 4. Acute kidney injury. 5. The patient has multiple other medical problems including: A. Hyperlipidemia. B. Paroxysmal atrial fibrillation. C. Ascending aortic aneurysm. D. Questionable mitral valve replacement and aneurysm repair. PLAN: To continue with D5W at 150 mL. I discontinued his IV vancomycin and Zosyn. He is now on Augmentin 500/125 one tablet twice a day. We will repeat his lab work again. I have spoken with our certified social workers in health care regarding the goals of care given that he is 75 with advanced dementia and dysphagia, may be hospice is a better option. DOT DR: Satish TID: [id number]
[2021-10-30] MEDS ORDERED: AMOXICILLIN/K CLAV 500/125MG TABLET. PO SCH (21:00)
[2021-10-30] MEDS: GABAPENTIN 250 MG/5 ML ORAL SOLUTION. PO SCH (21:00)
--- NOTE | 2021-10-30 21:23 | PDOC ---
Exam Note: Shayne Note: Please also refer to the separate dictated note~for this date of service dictated separately.~Patient seen individually. Discussed the patient with Nursing staff reviewed the chart.~Reviewed interim history and current functioning. Reviewed vital signs,~Labs/ Radiology~and current medications noted below. Continue current treatment with the changes noted in the dictated addendum note Assessment: Vital Signs/I&O: Vital Signs Date Time Temp Pulse Resp B/P (MAP) Pulse Ox O2 Delivery O2 Flow Rate FiO2 10/30/21 19:40 97.0 57 16 97/63 (74) 96 Room Air 10/28/21 11:51 1.5 I & O 10/29/21 10/29/21 10/30/21 15:00 23:00 07:00 Intake Total 40 ml 350 ml Balance 40 ml 350 ml Labs: Laboratory Tests Test 10/29/21 21:30 10/30/21 05:35 10/30/21 12:05 Vancomycin Level Trough 26.7 mcg/mL (10.0-20.0) H Vancomycin Last Dose Date 10/29/21 Vancomycin Last Dose Time 1000 Prothrombin Time 16.0 SEC (9.4-11.4) H Prothrombin Time INR 1.6 (0.9-1.1) H Sodium Level 141 mmol/L (136-145) 150 mmol/L (136-145) H Potassium Level 3.6 mmol/L (3.5-5.1) 3.8 mmol/L (3.5-5.1) Chloride Level 115 mmol/L (98-107) H 117 mmol/L (98-107) H Carbon Dioxide Level 28 mmol/L (21-32) 26 mmol/L (21-32) Anion Gap -2 (6-14) L 7 (6-14) Blood Urea Nitrogen 23 mg/dL (8-26) 22 mg/dL (8-26) Creatinine 1.4 mg/dL (0.7-1.3) H 1.4 mg/dL (0.7-1.3) H Estimated GFR (Cockcroft-Gault) 49.1 49.1 Glucose Level 106 mg/dL (70-99) H 116 mg/dL (70-99) H Calcium Level 8.3 mg/dL (8.5-10.1) L 8.0 mg/dL (8.5-10.1) L Current Medications: Meds: Laboratory Tests Test 10/29/21 21:30 10/30/21 05:35 10/30/21 12:05 Vancomycin Level Trough 26.7 mcg/mL Vancomycin Last Dose Date 10/29/21 Vancomycin Last Dose Time 1000 Prothrombin Time 16.0 SEC Prothromb Time International Ratio 1.6 Sodium Level 141 mmol/L 150 mmol/L Potassium Level 3.6 mmol/L 3.8 mmol/L Chloride Level 115 mmol/L 117 mmol/L Carbon Dioxide Level 28 mmol/L 26 mmol/L Anion Gap -2 7 Blood Urea Nitrogen 23 mg/dL 22 mg/dL Creatinine 1.4 mg/dL 1.4 mg/dL Estimated GFR (Cockcroft-Gault) 49.1 49.1 Glucose Level 106 mg/dL 116 mg/dL Calcium Level 8.3 mg/dL 8.0 mg/dL Current Medications Medications (Trade) Dose Ordered Sig/Corky Route PRN Reason Start Time Stop Time Status Last Admin Dose Admin Vancomycin HCl (Vanco Per Pharmacy) 1 each PRN DAILY PRN MC SEE COMMENTS 10/28/21 08:00 10/28/21 13:32 Piperacillin Sod/ Tazobactam Sod 3.375 gm/Sodium Chloride 50 ml @ 100 mls/hr Q6HRS IV 10/28/21 08:30 10/30/21 08:49 DC 10/30/21 06:00 Sodium Chloride 1,000 ml @ 1,000 mls/hr 1X ONCE IV 10/28/21 08:00 10/28/21 08:59 DC 10/28/21 11:07 Warfarin Sodium (Coumadin Per Pharmacy) 1 each PRN DAILY PRN MC SEE COMMENTS 10/28/21 08:00 10/30/21 11:22 Vancomycin HCl 2 gm/Sodium Chloride 500 ml @ 250 mls/hr 1X ONCE IV 10/28/21 09:00 10/28/21 10:59 DC 10/28/21 11:08 Acetaminophen (Tylenol) 650 mg PRN Q4HRS PRN PO mild pain or fever 10/28/21 08:15 10/30/21 17:11 DC 10/30/21 08:45 Acetaminophen (Tylenol) 500 mg Q8HRS PO 10/28/21 14:00 10/30/21 17:11 DC 10/30/21 14:12 Aspirin (Aspirin Enteric Coated) 81 mg DAILY PO 10/28/21 09:00 10/30/21 08:44 Calcium Carbonate/ Glycine (Oscal) 500 mg PRN Q4HRS PRN PO HEARTBURN / GAS 10/28/21 08:15 Duloxetine HCl (Cymbalta) 40 mg DAILY PO 10/28/21 09:00 10/30/21 08:44 Fentanyl (Duragesic 25mcg/ Hr) 1 patch Q3DAYS TD 10/28/21 09:00 10/29/21 13:25 DC Gabapentin (Neurontin) 300 mg TID PO 10/28/21 09:00 10/30/21 17:08 DC 10/30/21 14:12 Lidocaine (Lidoderm) 1 patch PRN DAILY PRN TP BACK PAIN 10/28/21 08:15 Loperamide HCl (Imodium) 4 mg PRN Q4HRS PRN PO DIARRHEA 10/28/21 08:15 Al Hydroxide/Mg Hydroxide (Mylanta Plus Xs) 30 ml PRN Q4HRS PRN PO indigestion & diarrhea 10/28/21 08:15 Magnesium Hydroxide (Milk Of Magnesia) 2,400 mg PRN Q24HRS PRN PO CONSTIPATION 10/28/21 08:15 Olanzapine (ZyPREXA ZYDIS) 2.5 mg PRN Q2HR PRN PO ANXIETY / AGITATION 10/28/21 08:15 10/30/21 18:19 DC 10/30/21 11:18 Tramadol HCl (Ultram) 50 mg TID PO 10/28/21 09:00 10/30/21 14:12 Trazodone HCl (Desyrel) 25 mg PRN Q8HRS PRN PO anxiety 10/28/21 08:15 10/29/21 20:04 Artificial Tears (Refresh Classic) 1 drop PRN Q15MIN PRN OU DRY EYE 10/28/21 09:00 Non-Formulary Medication (Methyl Salicylate/ Menthol (Thera-Gesic Analgesic Cream)) 85 gm PRN QID PRN TP PAIN 10/28/21 08:15 UNV Multivitamins/ Calcium (Thera-M Plus) 1 tab DAILY PO 10/28/21 09:00 10/30/21 08:45 Non-Formulary Medication (Warfarin Sodium ) 6 mg AFTRNOON PO 10/28/21 13:00 UNV Warfarin Sodium (Coumadin) 4 mg 1X WARF ONCE PO 10/28/21 16:00 10/28/21 16:01 DC 10/28/21 18:37 Multi-Ingredient Ointment (Analgesic [place]) 1 sam PRN QID PRN TP MUSCLE PAIN 10/28/21 09:00 Vancomycin HCl 1.25 gm/Sodium Chloride 250 ml @ 167 mls/hr Q12H IV 10/28/21 22:00 10/30/21 08:49 DC 10/29/21 21:40 Vancomycin HCl (Vancomycin Trough Level) 1 each 1X ONCE MC 10/29/21 21:30 10/29/21 21:31 DC 10/29/21 21:30 Warfarin Sodium (Coumadin) 4 mg 1X WARF ONCE PO 10/29/21 16:00 10/29/21 16:01 DC 10/29/21 17:59 Potassium Chloride (Klor-Con) 40 meq 1X ONCE PO 10/29/21 09:45 10/29/21 10:07 DC 10/29/21 10:30 Potassium Chloride/Dextrose 1,000 ml @ 100 mls/hr Q10H IV 10/29/21 14:30 10/30/21 14:41 DC 10/30/21 14:04 Warfarin Sodium (Coumadin) 5 mg 1X WARF ONCE PO 10/30/21 16:00 10/30/21 16:01 DC 10/30/21 16:35 Dextrose 1,000 ml @ 150 mls/hr Q6H40M IV 10/30/21 14:45 10/30/21 14:49 Amoxicillin/ Clavulanate Potassium (Augmentin 500/ 125mg) 1 tab BID PO 10/30/21 21:00 10/30/21 17:04 DC Gabapentin (Neurontin Oral Soln) 300 mg [id number] PO 10/30/21 21:00 Piperacillin Sod/ Tazobactam Sod 3.375 gm/Sodium Chloride 50 ml @ 100 mls/hr Q6HRS IV 10/30/21 18:00 10/30/21 17:44 Acetaminophen (Tylenol Oral Soln) 650 mg PRN Q4HRS PRN PO MILD PAIN / TEMP > 100.3'F 10/30/21 17:15 Acetaminophen (Tylenol Oral Soln) 500 mg Q8HRS PO 10/30/21 22:00 Olanzapine (ZyPREXA) 2.5 mg PRN Q6HRS PRN PO AGITAION/ANXIETY 10/30/21 18:15 Current Medications Medications (Trade) Dose Ordered Sig/Corky Route PRN Reason Start Time Stop Time Status Last Admin Dose Admin Vancomycin HCl (Vancomycin Trough Level) 1 each 1X ONCE MC 10/29/21 21:30 10/29/21 21:31 DC 10/29/21 21:30 Warfarin Sodium (Coumadin) 5 mg 1X WARF ONCE PO 10/30/21 16:00 10/30/21 16:01 DC 10/30/21 16:35 Dextrose 1,000 ml @ 150 mls/hr Q6H40M IV 10/30/21 14:45 10/30/21 14:49 Piperacillin Sod/ Tazobactam Sod 3.375 gm/Sodium Chloride 50 ml @ 100 mls/hr Q6HRS IV 10/30/21 18:00 10/30/21 17:44 I have reviewed the current psychotropics carefully including drug interactions. Risk benefit ratio favors no change other than as noted in my dictated progress note. 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
[2021-10-30] MEDS: ACETAMINOPHEN 650 MG/20.3 ML SOLUTION. PO SCH (22:00)
[2021-10-31] MEDS: PIPERACILLIN/TAZOBACTAM 3.375 GM in IV NORMAL SALINE 50ML 50 ML IV SCH ×5 (00:05→23:47)
[2021-10-31] MEDS: ACETAMINOPHEN 650 MG/20.3 ML SOLUTION. PO SCH ×3 (06:22→21:14)
[2021-10-31] MEDS ORDERED: ACETAMINOPHEN 650 MG SUPP.RECT. PR PRN (08:00)
[2021-10-31 08:38] VITALS: BP 147/67
[2021-10-31] MEDS: IV DEXTROSE 5% 1,000 ML IV SCH (08:55)
[2021-10-31] MEDS: GABAPENTIN 250 MG/5 ML ORAL SOLUTION. PO SCH ×3 (09:00→21:00)
[2021-10-31] MEDS ORDERED: ZIPRASIDONE IM 20 MG VIAL. IM ONE (12:00)
[2021-10-31 14:39] LABS: CALCIUM 8.2 mg/dL (8.5-10.1); CREATININE 1.3 mg/dL (0.7-1.3); GFR 53.5; POTASSIUM 3.2 mmol/L (3.5-5.1)
[2021-10-31] MEDS: POTASSIUM CL 20MEQ IN D5W 1,000 ML IV SCH (16:00)
[2021-10-31 20:22] VITALS: BP 138/79
--- NOTE | 2021-10-31 21:30 | PN ---
DATE: 10/31/2021 SUBJECTIVE: The patient is resting, slightly propped up in bed, in no apparent distress. He continued to be restless, agitated, attempts to get out of the bed, combative and resistant to care. He actually required ziprasidone this afternoon for him to calm down. PHYSICAL EXAMINATION: GENERAL: When I examined him, he looked pale, but no jaundiced or cyanosed, no lymphadenopathy, no thyromegaly, no jugular venous distention. No lower limb edema. VITAL SIGNS: His heart rate was 70, blood pressure was 147/67, temperature was 97.1, respiratory rate was 18 and oxygen saturation was 98%. The rest of clinical exam remained stable. HEENT: The patient continued to have problems with swallowing. He is aspirating, and therefore, he is now n.p.o. His intake over the last 24 hours was 390, no output was recorded. LABORATORY DATA: As of this morning showed a serum sodium 145, potassium 3.2, chloride 111, bicarbonate 25, anion gap of 9, BUN 15, creatinine was 1.3. Estimated GFR was 53 mL per minute. His glucose was 94, calcium was 8.2. His white cell count was 4000, hemoglobin 11, hematocrit 33, MCV 95 and platelet count of 177,000. His blood cultures are so far negative. ASSESSMENT: 1. Acute hypoxic respiratory failure, resolved. 2. Aspiration pneumonia. 3. Hypernatremia, resolved. His serum sodium is down to 145 from a high of 150. 4. Hypokalemia. 5. Acute kidney injury, resolving. His creatinine is down to 1.3. 6. The patient has multiple other medical problems including: A. Hyperlipidemia. B. Paroxysmal atrial fibrillation. C. Ascending aortic aneurysm. D. Questionable mitral valve replacement and aneurysmal repair. PLAN: My plan is to continue with IV Zosyn as he is now n.p.o. Continue with D5W with 20 mEq of potassium chloride. I will repeat his labs again tomorrow. My gut feeling states that the patient is having problem with dysphagia that is not going to go away and that we need to discuss with the family the option of hospice and comfort care eventually. OSCAR/JUDITH DR: Satish TID: [id number]
--- NOTE | 2021-10-31 22:00 | PDOC ---
Exam Note: Shayne Note: Please also refer to the separate dictated note~for this date of service dictated separately.~Patient seen individually. Discussed the patient with Nursing staff reviewed the chart.~Reviewed interim history and current functioning. Reviewed vital signs,~Labs/ Radiology~and current medications noted below. Continue current treatment with the changes noted in the dictated addendum note Assessment: Vital Signs/I&O: Vital Signs Date Time Temp Pulse Resp B/P (MAP) Pulse Ox O2 Delivery O2 Flow Rate FiO2 10/31/21 21:33 18 93 Room Air 10/31/21 20:22 97.9 80 138/79 (98) 10/28/21 11:51 1.5 I & O 0 10/30/21 10/30/21 10/31/21 15:00 23:00 07:00 Intake Total 50 ml 1000 ml 50 ml Balance 50 ml 1000 ml 50 ml Labs: Laboratory Tests Test 10/31/21 14:05 Prothrombin Time 19.2 SEC (9.4-11.4) H Prothrombin Time INR 1.9 (0.9-1.1) H Sodium Level 145 mmol/L (136-145) Potassium Level 3.2 mmol/L (3.5-5.1) L Chloride Level 111 mmol/L (98-107) H Carbon Dioxide Level 25 mmol/L (21-32) Anion Gap 9 (6-14) Blood Urea Nitrogen 15 mg/dL (8-26) Creatinine 1.3 mg/dL (0.7-1.3) Estimated GFR (Cockcroft-Gault) 53.5 Glucose Level 94 mg/dL (70-99) Calcium Level 8.2 mg/dL (8.5-10.1) L Current Medications: Meds: Laboratory Tests Test 10/31/21 14:05 Prothrombin Time 19.2 SEC Prothromb Time International Ratio 1.9 Sodium Level 145 mmol/L Potassium Level 3.2 mmol/L Chloride Level 111 mmol/L Carbon Dioxide Level 25 mmol/L Anion Gap 9 Blood Urea Nitrogen 15 mg/dL Creatinine 1.3 mg/dL Estimated GFR (Cockcroft-Gault) 53.5 Glucose Level 94 mg/dL Calcium Level 8.2 mg/dL Current Medications Medications (Trade) Dose Ordered Sig/Corky Route PRN Reason Start Time Stop Time Status Last Admin Dose Admin Vancomycin HCl (Vanco Per Pharmacy) 1 each PRN DAILY PRN MC SEE COMMENTS 10/28/21 08:00 10/31/21 07:22 DC 10/28/21 13:32 Piperacillin Sod/ Tazobactam Sod 3.375 gm/Sodium Chloride 50 ml @ 100 mls/hr Q6HRS IV 10/28/21 08:30 10/30/21 08:49 DC 10/30/21 06:00 Sodium Chloride 1,000 ml @ 1,000 mls/hr 1X ONCE IV 10/28/21 08:00 10/28/21 08:59 DC 10/28/21 11:07 Warfarin Sodium (Coumadin Per Pharmacy) 1 each PRN DAILY PRN MC SEE COMMENTS 10/28/21 08:00 10/31/21 17:49 DC 10/30/21 11:22 Vancomycin HCl 2 gm/Sodium Chloride 500 ml @ 250 mls/hr 1X ONCE IV 10/28/21 09:00 10/28/21 10:59 DC 10/28/21 11:08 Acetaminophen (Tylenol) 650 mg PRN Q4HRS PRN PO mild pain or fever 10/28/21 08:15 10/30/21 17:11 DC 10/30/21 08:45 Acetaminophen (Tylenol) 500 mg Q8HRS PO 10/28/21 14:00 10/30/21 17:11 DC 10/30/21 14:12 Aspirin (Aspirin Enteric Coated) 81 mg DAILY PO 10/28/21 09:00 Hold 10/30/21 08:44 Calcium Carbonate/ Glycine (Oscal) 500 mg PRN Q4HRS PRN PO HEARTBURN / GAS 10/28/21 08:15 Hold Duloxetine HCl (Cymbalta) 40 mg DAILY PO 10/28/21 09:00 Hold 10/30/21 08:44 Fentanyl (Duragesic 25mcg/ Hr) 1 patch Q3DAYS TD 10/28/21 09:00 10/29/21 13:25 DC Gabapentin (Neurontin) 300 mg TID PO 10/28/21 09:00 10/30/21 17:08 DC 10/30/21 14:12 Lidocaine (Lidoderm) 1 patch PRN DAILY PRN TP BACK PAIN 10/28/21 08:15 10/31/21 21:34 Loperamide HCl (Imodium) 4 mg PRN Q4HRS PRN PO DIARRHEA 10/28/21 08:15 10/31/21 21:34 DC Al Hydroxide/Mg Hydroxide (Mylanta Plus Xs) 30 ml PRN Q4HRS PRN PO indigestion & diarrhea 10/28/21 08:15 10/31/21 21:34 DC Magnesium Hydroxide (Milk Of Magnesia) 2,400 mg PRN Q24HRS PRN PO CONSTIPATION 10/28/21 08:15 10/31/21 21:34 DC Olanzapine (ZyPREXA ZYDIS) 2.5 mg PRN Q2HR PRN PO ANXIETY / AGITATION 10/28/21 08:15 10/30/21 18:19 DC 10/30/21 11:18 Tramadol HCl (Ultram) 50 mg TID PO 10/28/21 09:00 Hold 10/30/21 14:12 Trazodone HCl (Desyrel) 25 mg PRN Q8HRS PRN PO anxiety 10/28/21 08:15 Hold 10/29/21 20:04 Artificial Tears (Refresh Classic) 1 drop PRN Q15MIN PRN OU DRY EYE 10/28/21 09:00 Non-Formulary Medication (Methyl Salicylate/ Menthol (Thera-Gesic Analgesic Cream)) 85 gm PRN QID PRN TP PAIN 10/28/21 08:15 UNV Multivitamins/ Calcium (Thera-M Plus) 1 tab DAILY PO 10/28/21 09:00 Hold 10/30/21 08:45 Non-Formulary Medication (Warfarin Sodium ) 6 mg AFTRNOON PO 10/28/21 13:00 UNV Warfarin Sodium (Coumadin) 4 mg 1X WARF ONCE PO 10/28/21 16:00 10/28/21 16:01 DC 10/28/21 18:37 Multi-Ingredient Ointment (Analgesic [place]) 1 sam PRN QID PRN TP MUSCLE PAIN 10/28/21 09:00 Vancomycin HCl 1.25 gm/Sodium Chloride 250 ml @ 167 mls/hr Q12H IV 10/28/21 22:00 10/30/21 08:49 DC 10/29/21 21:40 Vancomycin HCl (Vancomycin Trough Level) 1 each 1X ONCE MC 10/29/21 21:30 10/29/21 21:31 DC 10/29/21 21:30 Warfarin Sodium (Coumadin) 4 mg 1X WARF ONCE PO 10/29/21 16:00 10/29/21 16:01 DC 10/29/21 17:59 Potassium Chloride (Klor-Con) 40 meq 1X ONCE PO 10/29/21 09:45 10/29/21 10:07 DC 10/29/21 10:30 Potassium Chloride/Dextrose 1,000 ml @ 100 mls/hr Q10H IV 10/29/21 14:30 10/30/21 14:41 DC 10/30/21 14:04 Warfarin Sodium (Coumadin) 5 mg 1X WARF ONCE PO 10/30/21 16:00 10/30/21 16:01 DC 10/30/21 16:35 Dextrose 1,000 ml @ 150 mls/hr Q6H40M IV 10/30/21 14:45 10/31/21 15:05 DC 10/31/21 08:55 Amoxicillin/ Clavulanate Potassium (Augmentin 500/ 125mg) 1 tab BID PO 10/30/21 21:00 10/30/21 17:04 DC Gabapentin (Neurontin Oral Soln) 300 mg [id number] PO 10/30/21 21:00 10/31/21 21:34 DC 10/30/21 21:00 Piperacillin Sod/ Tazobactam Sod 3.375 gm/Sodium Chloride 50 ml @ 100 mls/hr Q6HRS IV 10/30/21 18:00 10/31/21 18:00 Acetaminophen (Tylenol Oral Soln) 650 mg PRN Q4HRS PRN PO MILD PAIN / TEMP > 100.3'F 10/30/21 17:15 10/31/21 08:04 DC Acetaminophen (Tylenol Oral Soln) 500 mg Q8HRS PO 10/30/21 22:00 10/31/21 21:34 DC 10/31/21 06:22 Olanzapine (ZyPREXA) 2.5 mg PRN Q6HRS PRN PO AGITAION/ANXIETY 10/30/21 18:15 10/31/21 07:24 DC 10/31/21 01:16 Olanzapine (ZyPREXA ZYDIS) 2.5 mg PRN Q6HRS PRN PO AGITAION/ANXIETY 10/31/21 07:30 10/31/21 16:51 Fentanyl Citrate (Fentanyl 2ml Vial) 50 mcg PRN Q4HRS PRN IVP PAIN 10/31/21 08:00 10/31/21 21:33 Acetaminophen (Tylenol Supp) 650 mg PRN Q6HRS PRN ME MILD PAIN / TEMP > 100.3'F 10/31/21 08:00 Ziprasidone (Geodon Im) 10 mg 1X ONCE IM 10/31/21 12:00 10/31/21 12:08 DC 10/31/21 12:00 Potassium Chloride/Dextrose 1,000 ml @ 100 mls/hr Q10H IV 10/31/21 16:00 10/31/21 16:00 Current Medications Medications (Trade) Dose Ordered Sig/Corky Route PRN Reason Start Time Stop Time Status Last Admin Dose Admin Olanzapine (ZyPREXA ZYDIS) 2.5 mg PRN Q6HRS PRN PO AGITAION/ANXIETY 10/31/21 07:30 10/31/21 16:51 Fentanyl Citrate (Fentanyl 2ml Vial) 50 mcg PRN Q4HRS PRN IVP PAIN 10/31/21 08:00 10/31/21 21:33 Ziprasidone (Geodon Im) 10 mg 1X ONCE IM 10/31/21 12:00 10/31/21 12:08 DC 10/31/21 12:00 Potassium Chloride/Dextrose 1,000 ml @ 100 mls/hr Q10H IV 10/31/21 16:00 10/31/21 16:00 I have reviewed the current psychotropics carefully including drug interactions. Risk benefit ratio favors no change other than as noted in my dictated progress note. 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
[2021-11-01] MEDS: POTASSIUM CL 20MEQ IN D5W 1,000 ML IV SCH ×3 (04:19→22:52)
[2021-11-01] MEDS: PIPERACILLIN/TAZOBACTAM 3.375 GM in IV NORMAL SALINE 50ML 50 ML IV SCH ×3 (05:57→17:27)
[2021-11-01 06:13] VITALS: BP 140/79
[2021-11-01] MEDS: ZIPRASIDONE IM 20 MG VIAL. IM PRN ×2 (15:59→22:51)
--- NOTE | 2021-11-01 19:49 | PN ---
DATE: 11/01/2021 SUBJECTIVE: The patient is sitting slightly propped up in bed, clearly very restless, agitated. He apparently failed his video swallowing evaluation, has been aspirating with all consistencies. His family decided not to pursue any aggressive treatment. No feeding tube and they are opting for hospice and comfort care. PHYSICAL EXAMINATION: GENERAL: When I saw him this afternoon, he was somewhat pale, not jaundiced, cyanosed or thyromegaly. No jugular venous distention. No limb edema. VITAL SIGNS: His heart rate was 77, blood pressure 140/79, temperature 97.7, respiratory rate was 18 and oxygen saturation was 97%. The rest of clinical exam is stable. His intake was 1100, no output was recorded. LABORATORY DATA: As of yesterday showed his white cell count was 4000, hemoglobin 11, hematocrit 33, MCV 95 and platelet count of 177,000. Serum sodium 145, potassium 3.2, chloride 111, bicarbonate 25, anion gap of 9, BUN 15, creatinine 1.3. Estimated GFR was 53 mL per minute. His glucose was 94 and calcium was 8.2. So far, his blood cultures have shown no growth after 4 days. ASSESSMENT: 1. Acute hypoxic respiratory failure, that has resolved. 2. Aspiration pneumonia. 3. Hypernatremia, has resolved. His serum sodium has finally came down to 145 mEq per liter. 4. Hypokalemia, improving. 5. Acute kidney injury, resolving. His creatinine is down to 1.3. 6. The patient has multiple other medical problems including: A. Hyperlipidemia. B. Paroxysmal atrial fibrillation. C. Ascending aortic aneurysm. D. Questionable mitral valve replacement and thoracic aortic aneurysm repair. PLAN: To continue with IV Zosyn. Continue with n.p.o. status. Continue with D5W with 20 mEq of potassium chloride. I have spoken with his daughter who expressed her family desire for him to go on hospice. Our corrections caseworker will obviously facilitate the transfer tomorrow to a [facility] to go on hospice. KARMEN PATTEN: Satish TID: [id number]
[2021-11-01 20:54] VITALS: BP 134/82
--- NOTE | 2021-11-01 22:28 | PDOC ---
Exam Note: Shayne Note: Please also refer to the separate dictated note~for this date of service dictated separately.~Patient seen individually. Discussed the patient with Nursing staff reviewed the chart.~Reviewed interim history and current functioning. Reviewed vital signs,~Labs/ Radiology~and current medications noted below. Continue current treatment with the changes noted in the dictated addendum note Assessment: Vital Signs/I&O: Vital Signs Date Time Temp Pulse Resp B/P (MAP) Pulse Ox O2 Delivery O2 Flow Rate FiO2 11/01/21 20:54 97.4 81 18 134/82 (99) 96 Room Air 10/28/21 11:51 1.5 I & O 10/31/21 10/31/21 11/01/21 15:00 23:00 07:00 Intake Total 0 ml 50 ml 50 ml Output Total 100 ml Balance -100 ml 50 ml 50 ml Current Medications: Meds: Current Medications Medications (Trade) Dose Ordered Sig/Corky Route PRN Reason Start Time Stop Time Status Last Admin Dose Admin Vancomycin HCl (Vanco Per Pharmacy) 1 each PRN DAILY PRN MC SEE COMMENTS 10/28/21 08:00 10/31/21 07:22 DC 10/28/21 13:32 Piperacillin Sod/ Tazobactam Sod 3.375 gm/Sodium Chloride 50 ml @ 100 mls/hr Q6HRS IV 10/28/21 08:30 10/30/21 08:49 DC 10/30/21 06:00 Sodium Chloride 1,000 ml @ 1,000 mls/hr 1X ONCE IV 10/28/21 08:00 10/28/21 08:59 DC 10/28/21 11:07 Warfarin Sodium (Coumadin Per Pharmacy) 1 each PRN DAILY PRN MC SEE COMMENTS 10/28/21 08:00 10/31/21 17:49 DC 10/30/21 11:22 Vancomycin HCl 2 gm/Sodium Chloride 500 ml @ 250 mls/hr 1X ONCE IV 10/28/21 09:00 10/28/21 10:59 DC 10/28/21 11:08 Acetaminophen (Tylenol) 650 mg PRN Q4HRS PRN PO mild pain or fever 10/28/21 08:15 10/30/21 17:11 DC 10/30/21 08:45 Acetaminophen (Tylenol) 500 mg Q8HRS PO 10/28/21 14:00 10/30/21 17:11 DC 10/30/21 14:12 Aspirin (Aspirin Enteric Coated) 81 mg DAILY PO 10/28/21 09:00 Hold 10/30/21 08:44 Calcium Carbonate/ Glycine (Oscal) 500 mg PRN Q4HRS PRN PO HEARTBURN / GAS 10/28/21 08:15 Hold Duloxetine HCl (Cymbalta) 40 mg DAILY PO 10/28/21 09:00 Hold 10/30/21 08:44 Fentanyl (Duragesic 25mcg/ Hr) 1 patch Q3DAYS TD 10/28/21 09:00 10/29/21 13:25 DC Gabapentin (Neurontin) 300 mg TID PO 10/28/21 09:00 10/30/21 17:08 DC 10/30/21 14:12 Lidocaine (Lidoderm) 1 patch PRN DAILY PRN TP BACK PAIN 10/28/21 08:15 10/31/21 21:34 Loperamide HCl (Imodium) 4 mg PRN Q4HRS PRN PO DIARRHEA 10/28/21 08:15 10/31/21 21:34 DC Al Hydroxide/Mg Hydroxide (Mylanta Plus Xs) 30 ml PRN Q4HRS PRN PO indigestion & diarrhea 10/28/21 08:15 10/31/21 21:34 DC Magnesium Hydroxide (Milk Of Magnesia) 2,400 mg PRN Q24HRS PRN PO CONSTIPATION 10/28/21 08:15 10/31/21 21:34 DC Olanzapine (ZyPREXA ZYDIS) 2.5 mg PRN Q2HR PRN PO ANXIETY / AGITATION 10/28/21 08:15 10/30/21 18:19 DC 10/30/21 11:18 Tramadol HCl (Ultram) 50 mg TID PO 10/28/21 09:00 Hold 10/30/21 14:12 Trazodone HCl (Desyrel) 25 mg PRN Q8HRS PRN PO anxiety 10/28/21 08:15 Hold 10/29/21 20:04 Artificial Tears (Refresh Classic) 1 drop PRN Q15MIN PRN OU DRY EYE 10/28/21 09:00 Non-Formulary Medication (Methyl Salicylate/ Menthol (Thera-Gesic Analgesic Cream)) 85 gm PRN QID PRN TP PAIN 10/28/21 08:15 UNV Multivitamins/ Calcium (Thera-M Plus) 1 tab DAILY PO 10/28/21 09:00 Hold 10/30/21 08:45 Non-Formulary Medication (Warfarin Sodium ) 6 mg AFTRNOON PO 10/28/21 13:00 UNV Warfarin Sodium (Coumadin) 4 mg 1X WARF ONCE PO 10/28/21 16:00 10/28/21 16:01 DC 10/28/21 18:37 Multi-Ingredient Ointment (Analgesic [place]) 1 sam PRN QID PRN TP MUSCLE PAIN 10/28/21 09:00 Vancomycin HCl 1.25 gm/Sodium Chloride 250 ml @ 167 mls/hr Q12H IV 10/28/21 22:00 10/30/21 08:49 DC 10/29/21 21:40 Vancomycin HCl (Vancomycin Trough Level) 1 each 1X ONCE MC 10/29/21 21:30 10/29/21 21:31 DC 10/29/21 21:30 Warfarin Sodium (Coumadin) 4 mg 1X WARF ONCE PO 10/29/21 16:00 10/29/21 16:01 DC 10/29/21 17:59 Potassium Chloride (Klor-Con) 40 meq 1X ONCE PO 10/29/21 09:45 10/29/21 10:07 DC 10/29/21 10:30 Potassium Chloride/Dextrose 1,000 ml @ 100 mls/hr Q10H IV 10/29/21 14:30 10/30/21 14:41 DC 10/30/21 14:04 Warfarin Sodium (Coumadin) 5 mg 1X WARF ONCE PO 10/30/21 16:00 10/30/21 16:01 DC 10/30/21 16:35 Dextrose 1,000 ml @ 150 mls/hr Q6H40M IV 10/30/21 14:45 10/31/21 15:05 DC 10/31/21 08:55 Amoxicillin/ Clavulanate Potassium (Augmentin 500/ 125mg) 1 tab BID PO 10/30/21 21:00 10/30/21 17:04 DC Gabapentin (Neurontin Oral Soln) 300 mg [id number] PO 10/30/21 21:00 10/31/21 21:34 DC 10/30/21 21:00 Piperacillin Sod/ Tazobactam Sod 3.375 gm/Sodium Chloride 50 ml @ 100 mls/hr Q6HRS IV 10/30/21 18:00 11/01/21 17:27 Acetaminophen (Tylenol Oral Soln) 650 mg PRN Q4HRS PRN PO MILD PAIN / TEMP > 100.3'F 10/30/21 17:15 10/31/21 08:04 DC Acetaminophen (Tylenol Oral Soln) 500 mg Q8HRS PO 10/30/21 22:00 10/31/21 21:34 DC 10/31/21 06:22 Olanzapine (ZyPREXA) 2.5 mg PRN Q6HRS PRN PO AGITAION/ANXIETY 10/30/21 18:15 10/31/21 07:24 DC 10/31/21 01:16 Olanzapine (ZyPREXA ZYDIS) 2.5 mg PRN Q6HRS PRN PO AGITAION/ANXIETY 10/31/21 07:30 11/01/21 15:02 DC 11/01/21 12:00 Fentanyl Citrate (Fentanyl 2ml Vial) 50 mcg PRN Q4HRS PRN IVP PAIN 10/31/21 08:00 11/01/21 19:58 Acetaminophen (Tylenol Supp) 650 mg PRN Q6HRS PRN [place] MILD PAIN / TEMP > 100.3'F 10/31/21 08:00 Ziprasidone (Geodon Im) 10 mg 1X ONCE IM 10/31/21 12:00 10/31/21 12:08 DC 10/31/21 12:00 Potassium Chloride/Dextrose 1,000 ml @ 100 mls/hr Q10H IV 10/31/21 16:00 11/01/21 11:28 Olanzapine (ZyPREXA ZYDIS) 2.5 mg PRN Q2HR PRN PO AGITAION/ANXIETY 11/01/21 15:00 Ziprasidone (Geodon Im) 20 mg PRN Q2HR PRN IM AGITATION 11/01/21 15:00 11/01/21 15:59 Current Medications Medications (Trade) Dose Ordered Sig/Corky Route PRN Reason Start Time Stop Time Status Last Admin Dose Admin Ziprasidone (Geodon Im) 20 mg PRN Q2HR PRN IM AGITATION 11/01/21 15:00 11/01/21 15:59 I have reviewed the current psychotropics carefully including drug interactions. Risk benefit ratio favors no change other than as noted in my dictated progress note. 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
[2021-11-02] MEDS: PIPERACILLIN/TAZOBACTAM 3.375 GM in IV NORMAL SALINE 50ML 50 ML IV SCH ×2 (00:01→05:21)
[2021-11-02 07:32] VITALS: BP 128/80
--- NOTE | 2021-11-02 09:38 | PDOC ---
Exam Note: Shayne Note: This note is a late entry for 11/01/2021 covers elements not covered in my initial note. Subjective: The patient was seen individually on 11/01/2021, discussed and reviewed the chart with Mary NEFF. Overall the patient remains confused. Family visited him for about 2 hours today and I opted for hospice care for him. He has had one on one with nursing staff since he is a fall risk. Review of Systems: Ambulation impaired, in wheelchair. No CV, , pulmonary, eye system symptoms on review. Reliability poor. Mental Status Exam: The patient is oriented to himself. Insight and judgment, recent and remote memory, attention and concentration, fund of knowledge is poor consistent with his diagnoses. Laboratory Data: Reviewed. Impression: Major neurocognitive disorder, Alzheimer, vascular with delusion, depression behavioral disturbance. Anxiety disorder unspecified. Impulse control disorder unspecified. Plan: Continue psychotropics from initial note. Adjust further as clinically indicated. Assessment: Vital Signs/I&O: Vital Signs Date Time Temp Pulse Resp B/P (MAP) Pulse Ox O2 Delivery O2 Flow Rate FiO2 11/02/21 08:56 Room Air 11/02/21 07:32 97.9 79 16 128/80 (96) 92 10/28/21 11:51 1.5 I & O 11/01/21 11/01/21 11/02/21 14:59 22:59 06:59 Intake Total 0 ml 1050 ml 50 ml Balance 0 ml 1050 ml 50 ml Current Medications: Meds: Current Medications Medications (Trade) Dose Ordered Sig/Corky Route PRN Reason Start Time Stop Time Status Last Admin Dose Admin Ziprasidone (Geodon Im) 20 mg PRN Q2HR PRN IM 2ND CHOICE AGITATION 11/01/21 15:00 11/01/21 22:51 I have reviewed the current psychotropics carefully including drug interactions. Risk benefit ratio favors no change other than as noted in my dictated progress note. 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
[2021-11-02] MEDS ORDERED: SCOPOLAMINE 1.5MG PATCH. TD SCH (12:30)
[2021-11-02] MEDS ORDERED: MORPHINE SULFATE 4 MG/ML DISP.SYRIN. IV PRN (13:15)
[2021-11-02] MEDS ORDERED: MORPHINE SULFATE 30 MG/30 ML 30 ML IV PRN ×2 (13:15)
[2021-11-02] MEDS ORDERED: MORPHINE SULFATE 30 MG/30 ML 30 ML IV ONE (13:20)
[2021-11-02] MEDS ORDERED: MORPHINE SULFATE 4 MG/ML DISP.SYRIN. IV ONE (14:00)
--- NOTE | 2021-11-02 21:49 | PN ---
DATE: 11/02/2021 SUBJECTIVE: The patient is a 75-year-old male patient who was transferred from [facility] on account of aspiration pneumonia. He has failed his swallowing evaluation. His family opted for hospice care. Unfortunately, he started having hemoptysis and epistaxis and has become extremely restless and distressed and therefore, a decision was made to start him on morphine drip as well as Ativan and scopolamine and to consult [facility] for inpatient hospice. When I saw him this afternoon, he was extremely distressed, diaphoretic, and coughing up blood constantly. PHYSICAL EXAMINATION: VITAL SIGNS: His heart rate was 79, blood pressure was 128/80, temperature 97.9, respiratory rate was 24 and oxygen saturation was 92%. The rest of clinical exam is stable. PLAN: To start him on a morphine drip and Ativan as well as scopolamine patch and oxygen for comfort and we will discharge him and eventually to inpatient hospice. LARA DR: Satish TID: [id number]
--- NOTE | 2021-11-04 06:56 | PDOC ---
Exam Note: Shayne Note: This note is a late entry for 10/30/2021 covers elements not covered in my initial note. Subjective: The patient was seen on 10/30/2021, discussed and reviewed the chart with nursing staff. Overall the patient remains confused, intermittently restless, agitated. He continues to have some one-on-one status due to this. Reportedly family is considering the extent of interventions they like to maintain for the patient including the possibility of hospice care. He does remain somewhat restless, moving around excessively in his bed hitting his hand on the bed railings at times. Review of Systems: Ambulation impaired, in wheelchair. No CV, , pulmonary, eye system symptoms on review. Reliability poor. Mental Status Exam: The patient is oriented to himself. Insight and judgment, recent and remote memory, attention and concentration, fund of knowledge is poor consistent with his diagnoses. Laboratory Data: Reviewed. Impression: Major neurocognitive disorder, Alzheimer, vascular with delusion, depression behavioral disturbance. Anxiety disorder unspecified. Impulse control disorder unspecified. Plan: I have carefully reviewed the patients drug interactions and risk- benefit ratio. No further change is indicated at this time. We will use Zyprexa minimally only for severe agitation and try to avoid over-sedation. Assessment: Vital Signs/I&O: Vital Signs Date Time Temp Pulse Resp B/P (MAP) Pulse Ox O2 Delivery O2 Flow Rate FiO2 11/02/21 14:03 19 92 Room Air 11/02/21 07:32 97.9 79 128/80 (96) Current Medications: I have reviewed the current psychotropics carefully including drug interactions. Risk benefit ratio favors no change other than as noted in my dictated progress note. 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
--- NOTE | 2021-11-04 07:00 | PDOC ---
Exam Note: Shayne Note: This note is a late entry for 10/31/2021 covers elements not covered in my initial note. Subjective: The patient was seen on 10/31/2021, discussed and reviewed the chart with nursing staff. The patient remains confused. The family is considering hospice care. We will defer to Dr. Tinajero. Review of Systems: Ambulation impaired, in wheelchair. No CV, , pulmonary, eye system symptoms on review. Reliability poor. Mental Status Exam: The patient is oriented to himself. Insight and judgment, recent and remote memory, attention and concentration, fund of knowledge is poor consistent with his diagnoses. Laboratory Data: Reviewed. Impression: Major neurocognitive disorder, Alzheimer, vascular with delusion, depression behavioral disturbance. Anxiety disorder unspecified. Impulse control disorder unspecified. Plan: I have carefully reviewed the patients drug interactions and risk- benefit ratio. No further change is indicated at this time. Assessment: Vital Signs/I&O: Vital Signs Date Time Temp Pulse Resp B/P (MAP) Pulse Ox O2 Delivery O2 Flow Rate FiO2 11/02/21 14:03 19 92 Room Air 11/02/21 07:32 97.9 79 128/80 (96) Current Medications: I have reviewed the current psychotropics carefully including drug interactions. Risk benefit ratio favors no change other than as noted in my dictated progress note. 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
--- NOTE | 2021-11-04 07:11 | PDOC ---
Exam Note: Shayne Note: This note is a late entry for 11/02/2021 covers elements not covered in my initial note. Subjective: The patient was seen individually on 11/02/2021, discussed and reviewed the chart with nursing staff. The patient is currently on hospice care. His family is visiting him. He remains quite confused, somewhat restless. Review of Systems: No CV, , pulmonary, eye system symptoms on review. Reliability poor. Mental Status Exam: Per nursing observation not even to himself. Insight and judgment, recent and remote memory, attention and concentration, fund of knowledge is poor consistent with his diagnoses. Laboratory Data: Reviewed. Impression: Major neurocognitive disorder, Alzheimer, vascular with delusion, depression behavioral disturbance. Anxiety disorder unspecified. Impulse control disorder unspecified. Plan: Continue psychotropics from initial note. Adjust further as clinically indicated. Assessment: Vital Signs/I&O: Vital Signs Date Time Temp Pulse Resp B/P (MAP) Pulse Ox O2 Delivery O2 Flow Rate FiO2 11/02/21 14:03 19 92 Room Air 11/02/21 07:32 97.9 79 128/80 (96) Current Medications: I have reviewed the current psychotropics carefully including drug interactions. Risk benefit ratio favors no change other than as noted in my dictated progress note. 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
== END 2021-11-02 18:08 | disposition hospice, inpatient (51) | DRG 177 ==
LOC: 1 SOUTH 06:58
PROVIDERS: ADMIT Internal Medicine; ATTEND Internal Medicine
DX: J69.0 Pneumonitis due to inhalation of food and vomit (principal); J96.01 Acute respiratory failure with hypoxia; E87.0 Hyperosmolality and hypernatremia; F01.51 Vascular dementia, unspecified severity, with behavioral disturbance; F02.81 Dementia in other diseases classified elsewhere, unspecified severity, with behavioral disturbance; N17.9 Acute kidney failure, unspecified; R04.2 Hemoptysis; E78.5 Hyperlipidemia, unspecified; Z51.5 Encounter for palliative care; E86.0 Dehydration; E87.6 Hypokalemia; F32.A Depression, unspecified; F41.9 Anxiety disorder, unspecified; G30.9 Alzheimer's disease, unspecified; F63.9 Impulse disorder, unspecified; I48.0 Paroxysmal atrial fibrillation; I71.2 Thoracic aortic aneurysm, without rupture; R04.0 Epistaxis; G89.29 Other chronic pain; Z98.52 Vasectomy status; Z88.8 Allergy status to other drugs, medicaments and biological substances; Z95.2 Presence of prosthetic heart valve
CPT/HCPCS: 31720; 36415; 80048; 80053; 80202; 82803; 83605; 85027; 85610; 87040; J2060; J2270; J2543; J3010; J3370; J3486; J7040; J7042; J7050; 92610; J7030